=== PATIENT | female | born 1990 | race Caucasian/White ===

== ENCOUNTER → 2019-05-01 13:31 | Outpatient (CLI) | payer BC, SELFPAY ==
[2015-07-25 07:43] VITALS: BMI 87.0
[2019-05-03 11:32] LABS: HPV Reflexed? NOT INDICATED
== END ==
PROVIDERS: Referring Provider Obstetrics & Gynecology; Visit Provider Obstetrics & Gynecology
DX: Z12.4 Encounter for screening for malignant neoplasm of cervix (principal)
CPT/HCPCS: 87624; 88175; G0145

== ENCOUNTER → 2025-02-01 | Outpatient (CLI) | payer OTHER, SELFPAY ==
[2025-02-01 12:25] LABS: hCG Titer Quant., Serum 9010 mIU/mL (<9 non-preg)
== END | disposition home or self-care (01) ==
PROVIDERS: Referring Provider Obstetrics & Gynecology; Visit Provider Obstetrics & Gynecology
DX: O26.859 Spotting complicating pregnancy, unspecified trimester (principal); Z3A.00 Weeks of gestation of pregnancy not specified
CPT/HCPCS: 36415; 84702

== ENCOUNTER → 2025-02-03 | Outpatient (CLI) | payer OTHER, SELFPAY ==
[2025-02-03 12:21] LABS: hCG Titer Quant., Serum 14531 mIU/mL (<9 non-preg)
== END | disposition home or self-care (01) ==
LOC: LAB 11:04
PROVIDERS: Referring Provider Obstetrics & Gynecology; Visit Provider Obstetrics & Gynecology
DX: O26.859 Spotting complicating pregnancy, unspecified trimester (principal); Z3A.00 Weeks of gestation of pregnancy not specified
CPT/HCPCS: 36415; 84702

== ENCOUNTER → 2025-02-16 | Outpatient (CLI) | payer OTHER, SELFPAY ==
[2025-02-16 16:49] LABS: Amphetamine Urine NEGATIVE (<1000 ng/mL); Barbiturate Urine NEGATIVE (< 200 ng/mL); Benzodiazepine Urine NEGATIVE (< 200 ng/mL); Buprenorphine Urine NEGATIVE (< 200 ng/mL); Cocaine Urine NEGATIVE (< 300 ng/mL); Fentanyl, Urine NEGATIVE; Methadone Urine NEGATIVE (< 300 ng/mL); Opiates Urine NEGATIVE (< 300 ng/mL); Oxycodone, Urine NEGATIVE (< 100 ng/mL); PCP Urine NEGATIVE (< 25 ng/mL); THC Urine NEGATIVE (< 50 ng/mL)
[2025-02-19 22:06] LABS: Chlamydia By Nucleic Acid AMP Negative (Negative); Gonococcus By Nucleic Acid AMP Negative (Negative)
[2025-02-20 21:07] LABS: HPV APTIMA, High Risk Negative (Negative)
== END | disposition home or self-care (01) ==
LOC: LABSPEC 14:54
PROVIDERS: Referring Provider Obstetrics & Gynecology; Visit Provider Obstetrics & Gynecology
DX: O99.320 Drug use complicating pregnancy, unspecified trimester (principal); F12.21 Cannabis dependence, in remission; T75.89XA Other specified effects of external causes, initial encounter; Z12.4 Encounter for screening for malignant neoplasm of cervix; Z3A.00 Weeks of gestation of pregnancy not specified
CPT/HCPCS: 80307; 87077; 87086; 87088; 87186; 87491; 87591; 87624; 88175; G0145

== ENCOUNTER → 2025-03-05 | Outpatient (CLI) | payer OTHER, SELFPAY | END | disposition home or self-care (01) | LOC: LAB 11:49 | PROVIDERS: Referring Provider Nurse Practitioner Women's Health; Visit Provider Nurse Practitioner Women's Health | DX: O23.40 Unspecified infection of urinary tract in pregnancy, unspecified trimester (principal); Z3A.00 Weeks of gestation of pregnancy not specified | CPT/HCPCS: 87077; 87086; 87088; 87186 ==

== ENCOUNTER → 2025-03-13 | Outpatient (CLI) | payer OTHER, SELFPAY ==
[2025-03-13 10:41] LABS: Absolute Lymphocyte Count 2.18 X10^3/uL (0.83-4.51); Absolute Neutrophil Count 8.8 X10^3/uL (2.0-7.7); Basophil# 0.05 X10^3/uL; Basophil% 0.4 % (0-1); Eosinophil# 0.24 X10^3/uL; Hematocrit 36.1 % (37-47); Hemoglobin 12.4 g/dL (12.0-15.0); Lymphocyte # 2.18 X10^3/ul (0.83-4.51); Lymphocyte % 17.7 % (19-41); Mean Corp Hgb Conc 34.3 g/dL (32-36); Mean Corpuscular Hgb 31.1 pg (27.0-32.0); Mean Corpuscular Volume 90.5 fL (81-99); Mean Platelet Vol. 8.9 fl (6.2-12.0); Monocyte# 0.92 X10^3/uL; Monocyte% 7.5 % (0-10); NRBC Flagged by Analyzer 0 % (0-5); Neutrophil # 8.84 X10^3/uL (2.7-7.7); Neutrophil % 71.9 % (47-70); Platelet Count 318 K/mm3 (150-450); RBC Distribution Width CV 12.3 % (11.6-14.6); RBC Distribution Width SD 40.8 fl (35.1-43.9); Red Blood Count 3.99 M/mm3 (4.2-5.4); White Blood Count 12.3 K/mm3 (4.4-11.0)
[2025-03-13 11:22] LABS: Hemoglobin A1c 4.8 % (<=5.6)
[2025-03-13 11:32] LABS: HIV Nonreactive (Nonreactive); Hepatitis B Surface Antigen Nonreactive (Nonreactive); Hepatitis C Antibody Nonreactive (Nonreactive); Syphilis Antibodies Nonreactive (Nonreactive)
[2025-03-13 11:48] LABS: Rubella IgG Nonreactive (Nonreactive)
[2025-03-14 06:09] LABS: Toxoplasma Gondii IgG < 3.0 IU/mL (0.0-7.1); Toxoplasma Gondii IgM < 3.0 AU/mL (0.0-7.9)
== END | disposition home or self-care (01) ==
LOC: BWCLAB 09:08
PROVIDERS: Visit Provider Obstetrics & Gynecology
DX: O9A.219 Injury, poisoning and certain other consequences of external causes complicating pregnancy, unspecified trimester (principal); T75.89XA Other specified effects of external causes, initial encounter; W55.09XA Other contact with cat, initial encounter; Z3A.00 Weeks of gestation of pregnancy not specified
CPT/HCPCS: 36415; 83036; 85025; 86703; 86762; 86777; 86778; 86780; 86803; 86850; 86900; 86901; 87340

== ENCOUNTER → 2025-07-05 | Outpatient (CLI) | payer OTHER, SELFPAY ==
[2025-07-05 11:09] LABS: Hematocrit 35.6 % (37-47); Hemoglobin 12.0 g/dL (12.0-15.0); Immature Granulocytes Count 0.070 X10^3/uL (0.0-0.0); Mean Corp Hgb Conc 33.7 g/dL (32-36); Mean Corpuscular Volume 92.7 fL (81-99); Mean Platelet Vol. 8.7 fl (6.2-12.0); NRBC Flagged by Analyzer 0 % (0-5); Platelet Count 315 K/mm3 (150-450); RBC Distribution Width CV 12.6 % (11.6-14.6); RBC Distribution Width SD 42.5 fl (35.1-43.9); Red Blood Count 3.84 M/mm3 (4.2-5.4); White Blood Count 13.7 K/mm3 (4.4-11.0)
[2025-07-05 12:43] LABS: Glucose Challenge Gest 1H 50g 108 mg/dL (70-140); HIV Nonreactive (Nonreactive); Syphilis Antibodies Nonreactive (Nonreactive)
[2025-07-05 13:01] LABS: Barbiturate Urine NEGATIVE (< 200 ng/mL); Benzodiazepine Urine NEGATIVE (< 200 ng/mL); PCP Urine NEGATIVE (< 25 ng/mL); THC Urine NEGATIVE (< 50 ng/mL)
== END | disposition home or self-care (01) ==
PROVIDERS: Obstetrics & Gynecology; Referring Provider Nurse Practitioner Women's Health; Visit Provider Nurse Practitioner Women's Health
DX: O09.90 Supervision of high risk pregnancy, unspecified, unspecified trimester (principal); Z3A.00 Weeks of gestation of pregnancy not specified
CPT/HCPCS: 36415; 80307; 82950; 85025; 86703; 86780

== ENCOUNTER → 2025-07-19 | Outpatient (CLI) | payer OTHER, SELFPAY ==
[2025-07-19 13:07] LABS: Barbiturate Urine NEGATIVE (< 200 ng/mL); Benzodiazepine Urine NEGATIVE (< 200 ng/mL); PCP Urine NEGATIVE (< 25 ng/mL); THC Urine NEGATIVE (< 50 ng/mL)
== END | disposition home or self-care (01) ==
LOC: LABSPEC 10:23
PROVIDERS: Visit Provider Advanced Practice Midwife
DX: F12.21 Cannabis dependence, in remission (principal)
CPT/HCPCS: 80307

== ENCOUNTER → 2025-07-31 | Outpatient (CLI) | payer OTHER, SELFPAY ==
--- NOTE | 2025-07-31 11:59 | US_ITS ---
PROCEDURE: OB LIMITED WITH BIOMETRICS 07/31/2025 REASON FOR EXAM: SIZE GREATER THAN DATES. TECHNIQUE: Procedure Code: USOBGROWTH Modality: US Procedure: OB LIMITED WITH BIOMETRICS COMPARISON: None FINDINGS Number: 1 Position: Transverse left lie Placental Position: Anterior and not low-lying Placental Abnormalities: No evidence of previa. DIMENSIONS: Biparietal Diameter: 8.6 cm: 34 weeks and 6 days: 99 percentile/ Head Circumference: 31.5 cm: 35 weeks and 2 days: 96 percentile/ Abdominal Circumference: 29.4 cm: 33 weeks and 3 days: 91 percentile/ Femur Length: 6.2 cm: 32 weeks and 2 days: 57 percentile/ ESTIMATED WEIGHT: 2188 g plus/-328 g ESTIMATED WEIGHT PERCENTILE (24+ weeks): 90 ESTIMATED GESTATIONAL AGE: Baseline: 31 weeks and 4 days By Ultrasound: 34 weeks and 2 days ESTIMATED DATE OF DELIVERY: Baseline: September 28, 2024 By Ultrasound: September 14, 2025 BIOPHYSICAL ASSESSMENT: Amniotic Fluid Volume: 6.4 cm Amniotic Fluid Index: 16.2 cm (8-24 cm normal range) Cardiac Motion: 138 beats per minute (average) Trunk and Limb Motion: Present. MATERNAL ANATOMY: Adnexa: Neither maternal ovary is successfully identified. Cervical Length (if measured): 3.1 cm US/OB Limited With Biometrics IMPRESSION: Single live intrauterine gestation with a mean gestational age of 34 weeks and 2 days. Reading Location: [id number]
== END | disposition home or self-care (01) ==
PROVIDERS: Referring Provider Advanced Practice Midwife; Visit Provider Advanced Practice Midwife
DX: O26.849 Uterine size-date discrepancy, unspecified trimester (principal); Z3A.00 Weeks of gestation of pregnancy not specified
CPT/HCPCS: 76816

== ENCOUNTER → 2025-09-04 | Outpatient (CLI) | payer OTHER, SELFPAY ==
--- NOTE | 2025-09-04 09:04 | US_ITS ---
PROCEDURE: OB LIMITED WITH BIOMETRICS 09/04/2025 REASON FOR EXAM: GROWTH TECHNIQUE: Procedure Code: USOBGROWTH Modality: US Procedure: OB LIMITED WITH BIOMETRICS COMPARISON: 07/31/2025 FINDINGS Cephalic position with cardiac activity of 125 bpm. Maximum vertical pocket of 8.1 cm and GISEL of 20.1 cm. Placenta is anterior position with grade 1. BPD of 9.2, OFD of the 11.6, HC of 33.2, AC of 34.7, and FL of 7.5 cm corresponding with average gestational age of 37 weeks and 6 days with SANDY of 09/19/2025. Biometric measurement are within normal limits. Estimated weight of 3474 g (92 percentile). US/OB Limited With Biometrics IMPRESSION: Average sonographic gestational age is 37 weeks and 6 days with SANDY of 09/19/20 25. Biometry results are within normal limits. Reading Location: [id number]
== END | disposition home or self-care (01) ==
LOC: US 09:03
PROVIDERS: Referring Provider Nurse Practitioner Women's Health; Visit Provider Nurse Practitioner Women's Health
DX: O26.849 Uterine size-date discrepancy, unspecified trimester (principal)
CPT/HCPCS: 76816

== ENCOUNTER → 2025-09-05 | Outpatient (CLI) | payer OTHER, SELFPAY ==
--- OUTSIDE RECORDS SUMMARY | 2025-09-05 19:34 | XMS RPT_ITS | CCD ---
Author Organization [facility] Care Team Providers Care Human Resources Designate Name Role Phone Care Physician, No Primary Primary Care Provider Unavailable Care Physician, No Primary Referring Provider Un available Raegan REYES, Dr. Collier Attending Provider [phone] Dr. Mary Baker DO Attending Provider Dr. Mary Baker DO Referring Provider Angy Ceballos Attending Provider [phone] Angy Ceballos Referring Provider [phone] Violeta Nair CNM Attending Provider [phone] Aleah Molina DO Primary Care Provider ALEAH MOLINA Primary Care Unavailable AMIRA ALVARADO Referring UnavailSYLWIA Burleson Attending Unavailable ALEAH MOLINA Primary Care Unavailable AMIRA ALVARADO Referring UnavailSYLWIA Burleson Attending Unavailable SYLWIA RODRIGUEZ Attending Unavailable SYLWIA RODRIGUEZ Referring Unavailable ALEAH MOLINA Primary Care Unavailable Care Physician, No Primary Primary Care Physicia n Unavailable Care Physician, No Primary Referring Provider Un available Dr. Mary Baker DO Attending Physician Dr. Mary Baker DO Referring Provider Angy Ceballos Attending Physician [phone] Violeta Nair CNM Attending Physician [phone] Raegan REYES, Dr. Collier Attending Physician Care Physician, No Primary Primary Care Physicia n Unavailable Care Physician, No Primary Referring Provider Un available Criss DENTAL [employer]ORATORY TECHNOLOGY TEACHER-CAngy Attending Physician [phone] Criss DENT[employer] LABORATORY TECHNOLOGY TEACHER-CAngy Referring Provider [phone] Dr. Mary Baker DO Attending Physician Care Physician, No Primary Primary Care Unava ilable Mary Baker Referring Unavailabl e Mary Baker Attending Unavailabl e Care Physician, No Primary Primary Care Unava ilable Violeta Nair Attending Unavailable Care Physician, No Primary Referring Unava ilable Care Physician, No Primary Referring Unava ilable Care Physician, No Primary Primary Care Unava ilable Amira Alvarado Attending Unavailable Care Physician, No Primary Primary Care Unava ilable Care Physician, No Primary Referring Unava ilable Violeta Nair Attending Unavailable Care Physician, No Primary Primary Care Unava ilable Care Physician, No Primary Referring Unava ilable Amira Alvarado Attending Unavailable Care Physician, No Primary Primary Care Unava ilable Care Physician, No Primary Referring Unava ilable Criss D[employer]ORATORY TECHNOLOGY TEACHER, Angy Attending Unavailable Care Physician, No Primary Primary Care Unava ilable Care Physician, No Primary Referring Unava ilable Mary Baker Attending Unavailabl e Care Physician, No Primary Primary Care Unava ilable Care Physician, No Primary Referring Unava ilable [place] DENTAL LABORATORY TECHNOLOGY TEACHER, Angy Attending Unavailable Care Physician, No Primary Primary Care Unava ilable Care Physician, No Primary Referring Unava ilable Mary Baker Attending Unavailabl e Care Physician, No Primary Primary Care Unava ilable Care Physician, No Primary Referring Unava ilable Amira Alvarado Attending Unavailable Mary Baker Attending Unavailabl e Care Physician, No Primary Primary Care Unava ilable Mary Baker Referring Unavailabl e Care Physician, No Primary Primary Care Unava ilable Criss DENT[employer] LABORATORY TECHNOLOGY TEACHER, Angy Referring Unavailable [place] D[employer]ORATORY TECHNOLOGY TEACHER, Angy Attending Unavailable Care Physician, No Primary Primary Care Unava ilable Mary Baker Referring Unavailabl e Mary Baker Attending Unavailabl e Care Physician, No Primary Primary Care Unava ilable Mary Baker Attending Unavailabl e Care Physician, No Primary Primary Care Unava ilable Angy Kahn NP Referring Unavailable Angy Kahn NP Attending Unavailable Care Physician, No Primary Primary Care Unava ilable Violeta Nair Referring Unavailable Violeta Nair Attending Unavailable Care Physician, No Primary Primary Care Unava ilable Violeta Nair Attending Unavailable Allergies Allergy Classification Reported Allergen(s) Allergy Type Date of Onset Reaction(s) Facility (10 sources) natural latex rubber Allergy to substance 5 [facility] Comment on above: dry skin (2 sources) Latex; Translations: [LATEX] Propensity to adverse reactions 5 Rash [facility] (2 sources) Other; Translations: [OTHER] Propensity to adverse reactions 5 Swelling, Other (See Comments) [facility] (1 source) natural latex rubber Drug allergy (disorder) 5 [facility] Repository Medications Current Medications Medication Drug Class(es) Dates Sig (Normalized) Sig (Original) AZO CRANBERRY GUMMIES PO (1 source) AZO CRANBERRY GUMMIES PO Take by mouth Active cholecalciferol 0.25 mg oral capsule (11 sources) Vitamin D Start: 01-30-2025 take 1 capsule by mouth once daily Cholecalciferol (Vitamin D3) 250 mcg (10,000 unit) capsule Active 250 ug PO daily January 30, 2025 12:00am Complies with drug therapy fosfomycin 3000 mg powder for oral solution (8 sources) Start: 02-19-2025 take 3 g by mouth once Fosfomycin Tromethamine 3 gram packet Active 3 g PO ONCE 1 0 February 19, 2025 12:00am Complies with drug therapy ibuprofen 200 mg oral tablet (1 source) Nonsteroidal Anti-inflammatory Drug Start: 12-07-2012 ibuprofen (MOTRIN) 200 MG tablet Take by mouth every 6 hours as needed. 0 12/07/2012 Active Inositol-D Chiro Inositol 2,000-50 mg powder in packet (11 sources) Start: 01-30-2025 Inositol-D Chiro Inositol 2,000-50 mg powder in packet Active NMA PO January 30, 2025 12:00am Complies with drug therapy Start: 01-30-2025 Inositol-D Chi ro Inositol 2,000-50 mg powder in packet Active NMA PO January 30, 2025 12:00am Inositol-D Chiro-Inositol (OVASITOL PO) (1 source) Inositol-D Chiro -Inositol (OVASITOL PO) Take by mouth Active Mv-Mins 62-Qehv-Khhmp No.1-D barry (Pnv-[place]) 28-1-300 mg capsule (11 sources) Start: 01-30-2025 Mv-Mins 71-Iro n-Folic No.1-Dha (Pnv-[place]) 28-1-300 mg capsule Active 1 NMA PO DAILY January 30, 2025 12:00am Complies with drug therapy Start: 01-30-2025 Mv-Mins 71-Iro n-Folic No.1-Dha (Pnv-[place]) 28-1-300 mg capsule Active 1 NMA PO DAILY January 30, 2025 12:00am [place]-3 Fatty Acids (FISH OIL PO) (1 source) [place]-3 Fatty Ac ids (FISH OIL PO) Take by mouth Active Vit-Fe Fumarate-FA ( PO) (1 source) Vit-Fe Fumarate-FA ( PO) Take by mouth Active Vit-Fe Fumarate-FA ( VITAMIN PO) (1 source) take 1 tablet by niko th once daily Vit-Fe Fumarate-FA ( VITAMIN PO) Take 1 Tablet by mouth daily Active UNABLE TO FIND (1 source) UNABLE TO FIND A ctive VITAMIN D PO (2 sources) VITAMIN D PO Andi e by mouth Active Completed/Discontinued Medications Medication Drug Class(es) Dates Sig (Normalized) Sig (Original) naproxen 500 mg oral tablet (11 sources) Nonsteroidal Anti-inflammatory Drug Start: 10-31-2013 End: 01-30-2025 take 1 tablet by mouth twice daily as needed for pain Naproxen 500 MG tablet Discontinued 500 mg PO TWICE DAILY NEEDED as needed for Pain 20 0 October 31, 2013 1:00am January 30, 2025 8:12am Problems Active Problems Problem Classification Problem Date Documented Date Episodic/Chronic Abdominal pain (11 sources) Abdominal pain; Translations: [Unspecified abdominal pain] 01-29-2015 Episodic Administrative/soc ial admission (20 sources) Occupational exposure to unspecified risk factor; Translations: [Occupational exposure in workplace] Onset: 04-09-2001-30-2025 Episodic Comment on above: Coolant/spray- C[employer] M achinist denies triggers, pre coy female healthcare providers Anxiety disorders (20 sources) Anxiety; Translations: [Anxiety disorder, unspecified] Onset: 07-30-2001-30-2025 Chronic Comment on above: stable Disorders usually diagnosed in infancy, childhood, or adolescence (20 sources) Autism spectrum disorder; Translations: [Autistic disorder] Onset: 04-09-2001-30-2025 Chronic Comment on above: Suspected, tested hi gh Immunizations and screening for infectious disease (1 source) Encounter for immunization; Translations: [Encounter for immunization] Onset: 07-19-20 Episodic Menstrual disorders (13 sources) Secondary amenorrhea; Translations: [Secondary amenorrhea] Onset: 02-17-2001-30-2025 Chronic Comment on above: + UPT Mood disorders (20 sources) Depressive disorder; Translations: [Depression] 01-30-2025 Chronic Comment on above: mild, cyclical, not medicated Mood disorders (1 source) Mood disorders; Translations: [Depression, unspecified] Onset: 07-30-20 Nutritional deficiencies (20 sources) Vitamin D deficiency; Translations: [Vitamin D deficiency, unspecified] Onset: 07-30-2001-30-2025 Chronic Comment on above: Vit D 10,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 , 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 Other complications of (20 sources) Maternal obesity complicating , childbirth and the puerperium, antepartum; Translations: [Obesity complicating , unspecified trimester] 01-30-2025 Chronic Comment on above: HGBA1c Other complications of (1 source) Obesity complicating , first trimester; Translations: [Obesity complicating , first trimester] Onset: 07-30-20 Chronic Other complications of (1 source) Obesity complicating , unspecified trimester; Translations: [Obesity complicating , unspecified trimester] Onset: 02-17-20 Chronic Other complications of (20 sources) Spotting per vagina in ; Translations: [Spotting complicating , unspecified trimester] 02-01-2025 Episodic Other complications of (20 sources) High risk ; Translations: [Supervision of high risk , unspecified, unspecified trimester] 01-30-2025 Episodic Comment on above: , SANDY 09/20/25, BF Dionisio PRR , SANDY 09/20/25 , BF Dionisio Other complications of (20 sources) Urinary tract infection in ; Translations: [Unspecified infection of urinary tract in , unspecified trimester] 02-19-2025 Episodic Comment on above: Myroides bacteria-fo sfomycin. Needs rpt culture 2 wk after medication Myroides bacteria-fo sfomycin. Rpt culture still w myroides. ID doing expanded susceptibility panel for tx safe in . Consult MFM. Myroides bacteria-fo sfomycin. Rpt culture still w myroides. ID doing expanded susceptibility panel for tx safe in . Consult MFM-has not scheduled consult. Myroides bacteria-fo sfomycin. Rpt culture still w myroides. ID doing expanded susceptibility panel for tx safe in . Consult MFM-treated and culture 05/09/25 w/them negative. Other complications of (2 sources) Uterine size-date discrepancy, unspecified trimester; Translations: [Uterine size-date discrepancy, unspecified trimester] Onset: 07-30-20 Episodic Other complications of (1 source) Unspecified infection of urinary tract in , first trimester; Translations: [Unspecified infection of urinary tract in , first trimester] Onset: 07-30-20 Episodic Other complications of (1 source) Supervision of high risk , unspecified, unspecified trimester; Translations: [Supervision of high risk , unspecified, unspecified trimester] Onset: 07-30-20 Episodic Other endocrine disorders (20 sources) Polycystic ovary syndrome; Translations: [Polycystic ovarian syndrome] 01-30-2025 Chronic Comment on above: not on medication, H GBA1c Other endocrine disorders (1 source) Polycystic ovarian syndrome; Translations: [Polycystic ovarian syndrome] Onset: 07-30-20 Chronic Other injuries and conditions due to external causes (20 sources) Other specified effects of external causes, initial encounter; Translations: [Exposure to cat feces] Onset: 06-06-20 25 01-30-2025 Episodic Other nutritional; endocrine; and metabolic disorders (20 sources) Insulin resistance; Translations: [Insulin resistance] 01-30-2025 Chronic Comment on above: related to PCOS Other nutritional; endocrine; and metabolic disorders (1 source) Obesity; Translations: [Obesity, unspecified] Onset: 09-11-20 09 11-12-2022 Chronic Other and delivery including normal (20 sources) ; Translations: [Encounter for supervision of normal , unspecified, unspecified trimester] 01-30-2025 Episodic Comment on above: discussed NIPT & Car rier testing- undecided Residual codes; unclassified (20 sources) Stopped drinking alcohol; Translations: [Personal history of other specified conditions] 01-30-2025 Episodic Comment on above: 2-3 wine coolers or wine daily, stopped with + HPT Residual codes; unclassified (20 sources) Family history of hereditary disease; Translations: [Family history of other endocrine, nutritional and metabolic diseases] 01-30-2025 Episodic Comment on above: Mother & 1/2 sister Residual codes; unclassified (20 sources) Family history of disorder; Translations: [Family history of other specified conditions] 01-30-2025 Episodic Comment on above: Mother 2 miscarriage s Residual codes; unclassified (20 sources) Family history of Spina bifida; Translations: [Family history of other congenital malformations, deformations and chromosomal abnormalities] 01-30-2025 Episodic Comment on above: 1/2 sister Residual codes; unclassified (20 sources) Family history of cleft palate with cleft lip; Translations: [Family history of other congenital malformations, deformations and chromosomal abnormalities] 01-30-2025 Episodic Comment on above: 1/2 brother Residual codes; unclassified (20 sources) Family history of Raynaud phenomenon; Translations: [Family history of ischemic heart disease and other diseases of the circulatory system] 01-30-2025 Episodic Comment on above: 1/2 Sister Residual codes; unclassified (20 sources) Family history of congenital hip dysplasia; Translations: [Family history of other congenital malformations, deformations and chromosomal abnormalities] 01-30-2025 Episodic Comment on above: Mother Residual codes; unclassified (20 sources) Genetic mutation; Translations: [Genetic susceptibility to other disease] 01-30-2025 Episodic Comment on above: Family History- Moth er, 1/2 sister Residual codes; unclassified (6 sources) Family history of 5,10 methylenetetrahydrofolate reductase deficiency; Translations: [Family history of other endocrine, nutritional and metabolic diseases] 05-10-2025 Episodic Comment on above: Mother & 1/2 sister Residual codes; unclassified (1 source) Family history of ischemic heart disease and other diseases of the circulatory system; Translations: [Family history of ischemic heart disease and other diseases of the circulatory system] Onset: 07-30-20 Episodic Residual codes; unclassified (1 source) Family history of other congenital malformations, deformations and chromosomal abnormalities; Translations: [Family history of other congenital malformations, deformations and chromosomal abnormalities] Onset: 07-30-20 Episodic Residual codes; unclassified (1 source) Genetic susceptibility to other disease; Translations: [Genetic susceptibility to other disease] Onset: 07-30-20 Episodic Residual codes; unclassified (1 source) 31 weeks gestation of ; Translations: [31 weeks gestation of ] Onset: 07-30-20 Episodic Residual codes; unclassified (1 source) 29 weeks gestation of ; Translations: [29 weeks gestation of ] Onset: 07-19-20 Episodic Residual codes; unclassified (1 source) 23 weeks gestation of ; Translations: [23 weeks gestation of ] Onset: 06-06-20 Episodic Residual codes; unclassified (1 source) 19 weeks gestation of ; Translations: [19 weeks gestation of ] Onset: 06-06-20 Episodic Substance-related disorders (20 sources) Cannabis abuse; Translations: [Cannabis dependence, in remission] Onset: 07-30-2001-30-2025 Chronic Comment on above: Quit in October Quit in October, ro om smells of marijuana upon exams. Will need random tox screens. smell could be coming from FOB. Unclassified (1 source) Insulin resistance, unspecified; Translations: [Insulin resistance, unspecified] Onset: 06-06-20 Urinary tract infections (1 source) Urinary tract infectious disease; Translations: [Urinary tract infection, site not specified] 05-09-2025 Episodic Past or Other Problems Problem Classification Problem Date Documented Da te Episodic/Chronic Gastrointestinal hemorrhage (1 source) Hemorrhage of rectum and anus; Translations: [Hemorrhage of anus and rectum] Onset: 11-21-2008 12-11-2012 Episodic Nonmalignant breast conditions (1 source) Breast lump; Translations: [Unspecified lump in unspecified breast] Onset: 12-30-2009 12-11-2012 Episodic Other complications of (1 source) Spotting complicating , unspecified trimester; Translations: [Spotting complicating , unspecified trimester] Onset: 04-09-2025 Episodic Other complications of (1 source) Unspecified infection of urinary tract in , unspecified trimester; Translations: [Unspecified infection of urinary tract in , unspecified trimester] Onset: 03-08-2025 Episodic Other female genital disorders (1 source) Disorder of female genital organs; Translations: [Unspecified condition associated with female genital organs and menstrual cycle] Onset: 10-31-2008 11-12-2022 Episodic Other screening for suspected conditions (not mental disorders or infectious disease) (1 source) Encounter for screening for malignant neoplasm of cervix; Translations: [Encounter for screening for malignant neoplasm of cervix] Onset: 02-16-2025 Episodic Residual codes; unclassified (1 source) 15 weeks gestation of ; Translations: [15 weeks gestation of ] Onset: 04-09-2025 Episodic Residual codes; unclassified (1 source) Personal history of other specified conditions; Translations: [Personal history of other specified conditions] Onset: 04-09-2025 Episodic Residual codes; unclassified (1 source) Family history of other specified conditions; Translations: [Family history of other specified conditions] Onset: 04-09-2025 Episodic Residual codes; unclassified (1 source) Family history of other endocrine, nutritional and metabolic diseases; Translations: [Family history of other endocrine, nutritional and metabolic diseases] Onset: 04-09-2025 Episodic Varicose veins of lower extremity (20 sources) Bilateral spider veins of lower limbs; Translations: [Asymptomatic varicose veins of bilateral lower extremities] Onset: 04-09-2025 01-30-2025 Episodic Comment on above: below knee Viral infection (20 sources) Hand wart; Translations: [Viral wart, unspecified] Onset: 04-09-2025 01-30-2025 Episodic Comment on above: thumb currently Results Test Name Value Interpretation Reference Range Facility OB Limited With Biometricson 07-31-2025 OB Limited With Biometrics [facility] Imaging Services [address], [place] [id number] OB Limited With Biometrics MR#: [id number] Acct: [id number] Name: TRACIKEIRAFlaquita GALLEGOS Rep #: [id number] : 1990 F 35 From: Jeremiah umaña MD PCP: Care Physician,No Primary Status: REG CLI Study: OB Limited With Biometrics Date of Exam: 07/31 Exam# [id number] Ordering Dr: Violeta Nair CNM PROCEDURE: OB LIMITED WITH BIOMETRICS 07/31/2025 REASON FOR EXAM: SIZE GREATER THAN DATES. TECHNIQUE: Procedure Code: USOBGROWTH Modality: US Procedure: OB LIMITED WITH BIOMETRICS COMPARISON: None FINDINGS Number: 1 Position: Transverse left lie Placental Position: Anterior and not low-lying Placental Abnormalities: No evidence of previa. DIMENSIONS: Biparietal Diameter: 8.6 cm: 34 weeks and 6 days: 99 percentile/ Head Circumference: 31.5 cm: 35 weeks and 2 days: 96 percentile/ Abdominal Circumference: 29.4 cm: 33 weeks and 3 days: 91 percentile/ Femur Length: 6.2 cm: 32 weeks and 2 days: 57 percentile/ ESTIMATED WEIGHT: 2188 g plus/-328 g ESTIMATED WEIGHT PERCENTILE (24+ weeks): 90 ESTIMATED GESTATIONAL AGE: Baseline: 31 weeks and 4 days By Ultrasound: 34 weeks and 2 days ESTIMATED DATE OF DELIVERY: Baseline: September 28, 2024 By Ultrasound: September 14, 2025 BIOPHYSICAL ASSESSMENT: Amniotic Fluid Volume: 6.4 cm Amniotic Fluid Index: 16.2 cm (8-24 cm normal range) Cardiac Motion: 138 beats per minute (average) Trunk and Limb Motion: Present. MATERNAL ANATOMY: Adnexa: Neither maternal ovary is successfully identified. Cervical Length (if measured): 3.1 cm US/OB Limited With Biometrics IMPRESSION: Single live intrauterine gestation with a mean gestational age of 34 weeks and 2 days. Reading Location: [id number] CC: KENNY Nair; No Primary Care Physician Creative Lead: Signed Normal [facility] Cigarette Filter Inspector Office Visit Reporton 07-30-2025 Cigarette Filter Inspector Office Visit Report [facility] [address], [address] [place] [address] OFFICE VISIT Date of Service: 07/30/25 MR#: [id number] Acct: [id number] Name: AVILESKEIRA Rep #: [id number] : 1990 Provider: Dr. Amira ward MD Age/Sex: 35/F Location[place] [facility] [place] [facility] [place] Status: Signed Intake Vital Signs 06/06/25 08:47 07/19/25 09:21 07/30/25 08:56 Height 5 ft 1 in 5 ft 1 in 5 ft 1 in Weight: 208 lb 6 oz BMI 39.3 BP 131/72 H Intake Visit Reasons: 32wk ob Gandy Dancer Required: No Is patient in pain?: No Allergies Latex, Natural Rubber Allergy (Mild, Verified 07/30/25 08:58) Rash Medications ???Medication ???Instructions ???Recorded ???Confirmed ???Type cholecalciferol (vitamin D3) 250 250 mcg PO QDAY 01/30/25 07/30/25 History mcg (10,000 unit) capsule inositol 2,000 mg-D chiro inositol ea PO 01/30/25 07/30/25 History 50 mg oral powder packet multivit-min no.71-iron fum 28 1 cap PO DAILY 01/30/25 07/30/25 H istory mg-folate no.1 1 mg-dha 300 mg capsule (PNV-[place]) Last Menstrual Period: 12/14/24 Zika: Zika virus screening: Negative : No Have you fallen in the past year?: No PFSH PFSH Medical History Seasonal allergies Surgical History [place] teeth extracted Family History Sister MTHFR gene mutation Half sister Spina bifida Mother MTHFR gene mutation Arthritis Hypertension Addiction to drug Grandmother Arthritis Maternal Alcoholism maternal Kidney disease, Onset Age: 32 kidney removed Grandfather Arthritis Maternal Diabetes Maternal Father Alcoholism Social History adopted: No household members: family housing: house current occupational status: employed 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, coolant) pets and animals: Yes (Avoid litter box) pets and animals: cat(s) and dog(s) history of recent travel: No sexually active: Yes Smoking Status: Never smoker alcohol intake: current alcohol intake frequency: 3 or more drinks per day Alcohol type: wine details: Not since finding out substance use type: former substance user and marijuana well-balanced diet: daily or most days caffeine: Yes Type: coffee Number of servings: 2 eating out: 1-3 times/week during the past year weight has: remained stable what type of physical activity do you participate in: none estefani/protestant: None seatbelt use: always do you feel safe at home: Yes additional social history: MOHAMUD-Dionisio Perez 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 OB Visit SANDY Calculator Estimated Delivery Date Method Current WG Current Estimate 09/28/25 Ultrasound #1 31w 3d Other Estimates 09/20/25 LMP (Certain) 32w 4d Expected Delivery Route/Plan Labor Preferences- CB/BF classes: [] labor support person: [] labor intervention preferences: [] pain management options preferred: [] cut cord/dad catch: [] : [] PP control planned: [] discussed possible routes of delivery and associated risks: [] special requests: [] Specific Issue/Plans Covid status: [] Flu vaccine: given Tdap vaccine: given Rhogam: na LARC form signed: declined movement and labor precautions reviewed. Problem list reviewed and updated with the most current plan of care details and appropriate orders placed. Relevant counseling for the gestational age provided. Continue routine care and follow up unless otherwise noted in visit notes/problem list details Initial Weight: Not Recorded Date -???-???-???-???-???-?? ?-???-???-???-???-???-? ??- EGA Weight BP Urine Prot -???-???-???-???-???-?? ?-???-???-???-???-???-? ??- Glucose FHR FuHt Pres Dilation -???-???-???-???-???-?? ?-???-???-???-???-???-? ??- Effaced St Visit Note 02/16/25 -???-???-???-???-???-?? ?-???-???-???-???-???-? ??- 8w 0d 170 lb 8 oz 109/68 -???-???-???-???-???-?? ?-???-???-???-???-???-? ??- 166 -???-???-???-???-???-?? ?-???-???-???-???-???-? ??- 03/13/25 -???-???-???-???-???-?? ?-???-???-???-???-???-? ??- 11w 4d 168 lb 6 oz 106/71 Negative -???-???-???-???-???-?? ?-???-???-???-???-???-? ??- Negative 168 -???-???-???-???-???-?? ?-???-???-???-???-???-? ??- -No VB. Na usea improved. Br US confirm FHT. Discussed UTI, will call expa (more content not included)... Normal [facility] Cigarette Filter Inspector Office Visit Reporton 07-19-2025 Cigarette Filter Inspector Office Visit Report [facility] [address], [address] [place] [address] OFFICE VISIT Date of Service: 07/19/25 MR#: [id number] Acct: [id number] Name: SORAYA AVILESA EL Rep #: [id number] : 1990 Provider: KENNY Rojas ams Age/Sex: 35/F Location: [facility] Status: Signed with Addenda ADDENDUM by Silvia Stahl on 07/19/25 at 0949 Office Procedure Documentation entered by Silvia Stahl 07/19/25 09:49: Immunizations Flucelvax 0790-5708 (PF) 45 mcg (15 mcg x 3)/0.5 mL IM syringe Performing Provider: Violeta Nair CNM Performing Location: [facility] Administered by: Silvia Stahl on 07/19/25 09:48 Dose Route Admin Location Dispensed Lot Number Expiration Date Package NDC NDC Rn International 0.5 mL IM Left Deltoid 0.5 mL [id number] 01/27/26 64175-292-[address] [id number] [employer]. VIS Given Date VIS Provided VIS Publication Date 07/19/25 Single Vaccine 24 Eligibility Eligibility Date Funding Source Not Applicable Adacel(Tdap Adolesn/Adult)(PF) 2 Lf-(2.5-5-3-5)-5 Lf/0.5 mL IM syringe Performing Provider: Violeta Nair CNM Performing Location: [facility] Administered by: Silvia Stahl on 07/19/25 09:48 Dose Route Admin Location Dispensed Lot Number Expiration Date Package NDC NDC Rn International 0.5 mL IM Right Deltoid 0.5 mL [id number] 04/20/27 18373-447-07 [id number] S [employer] VIS Given Date VIS Provided VIS Publication Date 07/19/25 Single Vaccine 24 Eligibility Eligibility Date Funding Source Not Applicable Date cc: * Signed Intake Vital Signs 05/10/25 09:41 07/05/25 10:45 07/19/25 09:21 Height 5 ft 1 in 5 ft 1 in 5 ft 1 in Weight: 206 lb BMI 38.9 BP 120/75 Intake Visit Reasons: 30wk ob Chief Complaint: 30wk OB Gandy Dancer Required: No Is patient in pain?: No Allergies Latex, Natural Rubber Allergy (Mild, Verified 07/19/25 09:19) Rash Medications ???Medication ???Instructions ???Recorded ???Confirmed ???Type cholecalciferol (vitamin D3) 250 250 mcg PO QDAY 01/30/25 07/19/25 History mcg (10,000 unit) capsule inositol 2,000 mg-D chiro inositol ea PO 01/30/25 07/19/25 History 50 mg oral powder packet multivit-min no.71-iron fum 28 1 cap PO DAILY 01/30/25 07/19/25 H istory mg-folate no.1 1 mg-dha 300 mg capsule (PNV-[place]) fosfomycin tromethamine 3 gram 3 g PO ONCE #1 ea 02/19/25 5 Rx oral packet Last Menstrual Period: 12/14/24 : No Have you fallen in the past year?: No PFSH PFSH Medical History Seasonal allergies Surgical History [place] teeth extracted Family History Sister MTHFR gene mutation Half sister Spina bifida Mother MTHFR gene mutation Arthritis Hypertension Addiction to drug Grandmother Arthritis Maternal Alcoholism maternal Kidney disease, Onset Age: 32 kidney removed Grandfather Arthritis Maternal Diabetes Maternal Father Alcoholism Social History adopted: No household members: family housing: house current occupational status: employed 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, coolant) pets and animals: Yes (Avoid litter box) pets and animals: cat(s) and dog(s) history of recent travel: No sexually active: Yes Smoking Status: Never smoker alcohol intake: current alcohol intake frequency: 3 or more drinks per day Alcohol type: wine details: Not since finding out substance use type: former substance user and marijuana well-balanced diet: daily or most days caffeine: Yes Type: coffee Number of servings: 2 eating out: 1-3 times/week during the past year weight has: remained stable what type of physical activity do you participate in: none estefani/protestant: None seatbelt use: always do you feel safe at home: Yes additional social history: BF-Dionisio [employer]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 OB Visit SANDY Calculator Estimated Delivery Date Method Current WG Current Estimate 09/28/25 Ultrasound #1 29w 6d Other Estimates 09/20/25 LMP (Certain) 31w 0d Expected Delivery Route/Plan Labor Preferences- CB/BF classes: [] labor support person: [] labor intervention preferences: [] pain management options preferred: [] (more content not included)... Normal [facility] Urine Drug Screen (VISTA)on 07-19-2025 AMPHETAMINES Negative Normal <1000 ng/mL [facility] Comment on above: Order Comment: UNK Performed By: #### L 505.5000 #### [facility] [address] [place] [address] BARBITIURATES Negative Normal < 200 ng/mL [facility] Comment on above: Order Comment: UNK Performed By: #### L 505.5000 #### [facility] [address] [place] [address] BENZODIAZIPINE Negative Normal < 200 ng/mL [facility] Comment on above: Order Comment: UNK Performed By: #### L 505.5000 #### [facility] [address] [place] [id number] BUP Ur Drug Scr Negative Normal < 200 ng/mL [facility] Comment on above: Order Comment: UNK Performed By: #### L 505.5000 #### [facility] [address] [facility] [place] [id number] COCAINE Negative Normal < 300 ng/mL [facility] Comment on above: Order Comment: UNK Performed By: #### L 505.5000 #### [facility] [address] [place] [id number] Fentanyl Negative Normal <5 ng/mL [facility] Comment on above: Order Comment: UNK Result Comment: CONF IRMATORY TESTING FOR ALL POSITIVE URINE DRUG SCREEN RESULTS WILL ONLY BE SENT OUT UPON PHYSICIAN ORDER. Isma Pro Urine Drug Screen methods provide only preliminary analytical test results. A more specific alternate chemical method must be used in order to obtain a confirmed analytical result. Gas chromatography/mass spectrometery (GC/MS) is the preferred confirmatory method. Clinical consideration and professional judgement should be applied to any drug of abuse test result, particularly when preliminary positive results are used. Urine TCA testing must be ordered separately. Use test mnemonic: UTCA Performed By: #### L 505.5000 #### [facility] [address] [place] [address] METHADONE Negative Normal < 300 ng/mL [facility] Comment on above: Order Comment: UNK Performed By: #### L 505.5000 #### [facility] [address] [place] [address] OPIATES Negative Normal < 300 ng/mL [facility] Comment on above: Order Comment: UNK Performed By: #### L 505.5000 #### [facility] [address] [place] [address] OXYCODONE Negative Normal < 100 ng/mL [facility] Comment on above: Order Comment: UNK Performed By: #### L 505.5000 #### [facility] [address] [place] [address] PCP Negative Normal < 25 ng/mL [facility] Comment on above: Order Comment: UNK Performed By: #### L 505.5000 #### [facility] [address] [place] [address] THC Negative Normal < 50 ng/mL [facility] Comment on above: Order Comment: UNK Performed By: #### L 505.5000 #### [facility] [address] [place] [address] Absolute lymphocyte countOrd ered By: Angy Kahn on 07-05-2025 Lymphocytes Auto (Unsp spec) [#/Vol] 1.46 10*3/uL 0.83-4.51 [facility] Absolute neutrophil countOrd ered By: Angy Kahn on 07-05-2025 Neutrophils (Bld) [#/Vol] 11.2 10*3/uL High 2.0-7.7 [facility] Amphetamine detection with 1 000 ng/mL as cutoffOrdered By: Mary Shea on 07-05-2025 Amphetamines Screen method >1000 ng/mL Ql (U) Negative < 200 ng/mL [facility] Automated lymphocyte count a s percentage of total leukocytesOrdered By: Angy Kahn on 07-05-2025 Lymphocytes/100 WBC Auto (Unsp spec) 10.7 % Low 19-41 [facility] Basophil percentageOrdered B y: Angy Kahn on 07-05-2025 Basophils/100 WBC (Bld) 0.2 % 0-1 [facility] CBC W/Diff, Automatedon 06-20 Absolute Lymph 1.46 X10 3/uL Normal 0.83-4.51 [facility] Comment on above: Performed By: #### L 505.5000, M100.2200, L7000.1800, L7400.0280 #### [facility] [address] [place], [address] Absolute Neut 11.2 X10 3/uL High 2.0-7.7 [facility] Comment on above: Performed By: #### L 505.5000, M100.2200, L7000.1800, L7400.0280 #### [facility] [address] [place], [address] Basophils/100 WBC (Bld) 0.2 % Normal 0-1 [facility] Comment on above: Performed By: #### L 505.5000, M100.2200, L7000.1800, L7400.0280 #### [facility] [address] [place], [address] Eosinophils/100 WBC (Bld) 1.2 % Normal 0-5 [facility] Comment on above: Performed By: #### L 505.5000, M100.2200, L7000.1800, L7400.0280 #### [facility] [address] [place], [address] Erythrocyte distribution width (RBC) [Ratio] 12.6 % Normal 11.6-14.6 [facility] Comment on above: Performed By: #### L 505.5000, M100.2200, L7000.1800, L7400.0280 #### [facility] [address] [place], [address] Hematocrit (Bld) [Volume fraction] 35.6 % Low 37-47 [facility] Comment on above: Performed By: #### L 505.5000, M100.2200, L7000.1800, L7400.0280 #### [facility] [address] [place], [address] Hemoglobin (Bld) [Mass/Vol] 12.0 g/dL Normal 12.0-15.0 [facility] Comment on above: Performed By: #### L 505.5000, M100.2200, L7000.1800, L7400.0280 #### [facility] [address] [place], [address] IG% 0.500 Normal 0.0-0.9 [facility] Comment on above: Result Comment: IG% - Immature Granulocytes (promyelocytes, myelocytes and metamyelocytes) > 1% indicates that a LEFT SHIFT is Present. Performed By: #### L 505.5000, M100.2200, L7000.1800, L7400.0280 #### [facility] [address] [place], [address] Lymphocytes/100 WBC (Bld) 10.7 % Low 19-41 [facility] Comment on above: Performed By: #### L 505.5000, M100.2200, L7000.1800, L7400.0280 #### [facility] [address] [place], [address] MCH (RBC) [Entitic mass] 31.3 pg Normal 27.0-32.0 [facility] Comment on above: Performed By: #### L 505.5000, M100.2200, L7000.1800, L7400.0280 #### [facility] [address] [place], [address] MCHC (RBC) [Mass/Vol] 33.7 g/dL Normal 32-36 [facility] Comment on above: Performed By: #### L 505.5000, M100.2200, L7000.1800, L7400.0280 #### [facility] [address] [place], [address] MCV (RBC) [Entitic vol] 92.7 fL Normal 81-99 [facility] Comment on above: Performed By: #### L 505.5000, M100.2200, L7000.1800, L7400.0280 #### [facility] [address] [place], [address] Monocytes/100 WBC (Bld) 6.0 % Normal 0-10 [facility] Comment on above: Performed By: #### L 505.5000, M100.2200, L7000.1800, L7400.0280 #### [facility] [address] [place], [address] Neutrophils/100 WBC (Bld) 81.4 % High 47-70 [facility] Comment on above: Performed By: #### L 505.5000, M100.2200, L7000.1800, L7400.0280 #### [facility] [address] [place], [address] Nucleated RBC (Bld) [#/Vol] 0 10*3/uL Normal 0-5 [facility] Comment on above: Performed By: #### L 505.5000, M100.2200, L7000.1800, L7400.0280 #### [facility] [address] [place], [address] Platelet mean volume (Bld) [Entitic vol] 8.7 fL Normal 6.2-12.0 [facility] Comment on above: Performed By: #### L 505.5000, M100.2200, L7000.1800, L7400.0280 #### [facility] [address] [place], [address] Platelets (Bld) [#/Vol] 315 10*3/uL Normal 150-450 [facility] Comment on above: Performed By: #### L 505.5000, M100.2200, L7000.1800, L7400.0280 #### [facility] [address] [place], [address] RBC (Bld) [#/Vol] 3.84 10*6/uL Low 4.2-5.4 [facility] Comment on above: Performed By: #### L 505.5000, M100.2200, L7000.1800, L7400.0280 #### [facility] [address] [place], [address] RDW SD 42.5 fl Normal 35.1-43.9 [facility] Comment on above: Performed By: #### L 505.5000, M100.2200, L7000.1800, L7400.0280 #### [facility] [address] [place], [address] WBC (Bld) [#/Vol] 13.7 10*3/uL High 4.4-11.0 [facility] Comment on above: Performed By: #### L 505.5000, M100.2200, L7000.1800, L7400.0280 #### [facility] [address] [place], [address] Eosinophil percentageOrdered By: Angynguyễn Kahn on 07-05-2025 Eosinophils/100 WBC (Bld) 1.2 % 0-5 [facility] Erythrocyte distribution wid th ratioOrdered By: Angy Criss on 07-05-2025 Erythrocyte distribution width (RBC) [Ratio] 12.6 % 11.6-14.6 [facility] Erythrocyte distribution wid th standard deviationOrdered By: Angy Criss on 07-05-2025 Erythrocyte distribution width (RBC) [Ratio] 42.5 fl 35.1-43.9 [facility] Glucose Challenge Gest 1H 50 letitia 07-05-2025 GLU GEST 50g 1H 108 mg/dL Normal 70-140 [facility] Comment on above: Performed By: #### L 505.5000, M100.2200, L7000.1800, L7400.0280 #### [facility] [address] [place], [address] Glucose measurement at 2 yamilet rs post-dose gestational glucose tolerance testOrdered By: Angy Kahn on 07-05-2025 Glucose [Mass/Vol] 108 mg/dL 70-140 [facility] HIVon 07-05-2025 HIV Non-Reactive Normal Nonreactive [facility] Comment on above: Result Comment: Non- Reactive Reactive Repeatedly reactive samples must be confirmed according to CDC recommended confirmatory algorithms. The subresults for either HIVAG or AHIV can be used as an aid in the selection of the confirmation algorithm for reactive samples. Send out specimens with Reactive results to [facility] for confirmation. Order the HIV antibody detection and differentiation: lc#[id number] Performed By: #### L 505.5000, M100.2200, L7000.1800, L7400.0280 #### [facility] [address] [place], [address] Hematocrit Auto (Bld) [Volum e fraction]Ordered By: Angy Kahn on 07-05-2025 Hematocrit (Bld) [Volume fraction] 35.6 % Low 37-47 [facility] Hemoglobin measurementOrdere d By: Angy Kahn on 07-05-2025 Hemoglobin (Bld) [Mass/Vol] 12.0 g/dL 12.0-15.0 [facility] Immature granulocytes/100 WB C Auto (Bld)Ordered By: Angy Kahn on 07-05-2025 Immature granulocytes/100 WBC (Bld) 0.500 % 0.0-0.9 [facility] Comment on above: IG% - Immature Granu locytes (promyelocytes, myelocytes and metamyelocytes) > 1% indicates that a LEFT SHIFT is Present. Laboratory - Chemistry and C hemistry - challengeOrdered By: Mary Shea on 07-05-2025 Glucose Ql (U) Negative [facility] Laboratory - UrinalysisOrder ed By: Mary Shea on 07-05-2025 Protein Ql (U) Negative [facility] MCV (mean corpuscular volume ) determinationOrdered By: Angy Kahn on 07-05-2025 MCV (RBC) [Entitic vol] 92.7 fL 81-99 [facility] Mean corpuscular hemoglobin (MCH) determinationOrdered By: Angy Kahn on 07-05-2025 MCH (RBC) [Entitic mass] 31.3 pg 27.0-32.0 [facility] Mean corpuscular hemoglobin concentration (MCHC) determinationOrdered By: Angy Kahn on 07-05-2025 MCHC (RBC) [Mass/Vol] 33.7 g/dL 32-36 [facility] Mean platelet volume determi nationOrdered By: Angy Kahn on 07-05-2025 Platelet mean volume (Bld) [Entitic vol] 8.7 fL 6.2-12.0 [facility] Monocyte percentageOrdered B y: Angy Kahn on 07-05-2025 Monocytes/100 WBC (Bld) 6.0 % 0-10 [facility] Neutrophil percentageOrdered By: Angy Kahn on 07-05-2025 Neutrophils/100 WBC (Bld) 81.4 % High 47-70 [facility] No Panel InformationOrdered By: Mary Shea on 07-05-2025 Urine Buprenorphine Qualitative Negative < 200 ng/mL [facility] Urine Oxycodone Screen Negative < 100 ng/mL [facility] No Panel InformationOrdered By: Angy Kahn on 07-05-2025 HIV (1&2) Antibody Non-Reactive Nonreactive [facility] Comment on above: Non-ReactiveReactive Repeatedly reactive samples must be confirmed according to CDC recommended confirmatory algorithms. The subresults for either HIVAG or AHIV can be used as an aid in the selection of the confirmation algorithm for reactive samples.Send out specimens with Reactive results to [facility] for confirmation.Order the HIV antibody detection and differentiation: #[id number] Nucleated red blood cell per centageOrdered By: Angy Kahn on 07-05-2025 Nucleated RBC/100 WBC (Bld) [Ratio] 0 % 0-5 [facility] Cigarette Filter Inspector Office Visit Reporton 07-05-2025 Cigarette Filter Inspector Office Visit Report [facility] [address], [address] [place] [address] OFFICE VISIT Date of Service: 07/05/25 MR#: [id number] Acct: [id number] Name: KEIRA AVILES Rep #: [id number] : 1990 Provider: Dr. Mary Roberson DO Age/Sex: 35/F Location: [facility] Status: Signed Intake Vital Signs 05/10/25 09:41 06/06/25 08:47 07/05/25 10:43 07/05/25 10:45 Height 5 ft 1 in 5 ft 1 in 5 ft 1 in 5 ft 1 in Weight: 201 lb 6 oz BMI 38.0 BP 125/80 H Intake Visit Reasons: 28wk ob/glucose Gandy Dancer Required: No Is patient in pain?: No Allergies Latex, Natural Rubber Allergy (Mild, Verified 07/05/25 10:43) Rash Medications ???Medication ???Instructions ???Recorded ???Confirmed ???Type cholecalciferol (vitamin D3) 250 250 mcg PO QDAY 01/30/25 07/05/25 History mcg (10,000 unit) capsule inositol 2,000 mg-D chiro inositol ea PO 01/30/25 07/05/25 History 50 mg oral powder packet multivit-min no.71-iron fum 28 1 cap PO DAILY 01/30/25 07/05/25 H istory mg-folate no.1 1 mg-dha 300 mg capsule (PNV-[place]) fosfomycin tromethamine 3 gram 3 g PO ONCE #1 ea 02/19/25 5 Rx oral packet Last Menstrual Period: 12/14/24 Zika: Zika virus screening: Negative : No PFSH PFSH Medical History Seasonal allergies Surgical History [place] teeth extracted Family History Sister MTHFR gene mutation Half sister Spina bifida Mother MTHFR gene mutation Arthritis Hypertension Addiction to drug Grandmother Arthritis Maternal Alcoholism maternal Kidney disease, Onset Age: 32 kidney removed Grandfather Arthritis Maternal Diabetes Maternal Father Alcoholism Social History adopted: No household members: family housing: house current occupational status: employed 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, coolant) pets and animals: Yes (Avoid litter box) pets and animals: cat(s) and dog(s) history of recent travel: No sexually active: Yes Smoking Status: Never smoker alcohol intake: current alcohol intake frequency: 3 or more drinks per day Alcohol type: wine details: Not since finding out substance use type: former substance user and marijuana well-balanced diet: daily or most days caffeine: Yes Type: coffee Number of servings: 2 eating out: 1-3 times/week during the past year weight has: remained stable what type of physical activity do you participate in: none estefani/protestant: None seatbelt use: always do you feel safe at home: Yes additional social history: MOH[employer]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 OB Visit SANDY Calculator Estimated Delivery Date Method Current WG Current Estimate 09/28/25 Ultrasound #1 27w 6d Other Estimates 09/20/25 LMP (Certain) 29w 0d Expected Delivery Route/Plan Labor Preferences- CB/BF classes: [] labor support person: [] labor intervention preferences: [] pain management options preferred: [] cut cord/dad catch: [] : [] PP control planned: [] discussed possible routes of delivery and associated risks: [] special requests: [] Specific Issue/Plans Covid status: [] Flu vaccine: [] Tdap vaccine: [] Rhogam: [] LARC form signed: [] Problem list reviewed and updated with the most current plan of care details and appropriate orders placed. Relevant counseling for the gestational age provided. Continue routine care and follow up unless otherwise noted in visit notes/problem list details Initial Weight: Not Recorded Date -???-???-???-???-???-?? ?-???-???-???-???-???-? ??- EGA Weight BP Urine Prot -???-???-???-???-???-?? ?-???-???-???-???-???-? ??- Glucose FHR FuHt Pres Dilation -???-???-???-???-???-?? ?-???-???-???-???-???-? ??- Effaced St Visit Note 02/16/25 -???-???-???-???-???-?? ?-???-???-???-???-???-? ??- 8w 0d 170 lb 8 oz 109/68 -???-???-???-???-???-?? ?-???-???-???-???-???-? ??- 166 -???-???-???-???-???-?? ?-???-???-???-???-???-? ??- 03/13/25 -???-???-???-???-???-?? ?-???-???-???-???-???-? ??- 11w 4d 168 lb 6 oz 106/71 Negative -???-???-???-???-???-?? ?-???-???-???-???-???-? ??- Negative 168 -???-???-???-???-???-?? ?-???-???-???-???-???-? ??- MH-No VB. Na usea improved. Br US con (more content not included)... Normal [facility] Platelet countOrdered By: Ladarius Kahn on 07-05-2025 Platelets (Bld) [#/Vol] 315 10*3/uL 150-450 [facility] Quantitative urine opiates m easurementOrdered By: Mary Shea on 07-05-2025 Opiates Ql (U) Negative < 300 ng/mL [facility] RBC Auto (Bld) [#/Vol]Ordere d By: Angy Kahn on 07-05-2025 RBC (Bld) [#/Vol] 3.84 10*6/uL Low 4.2-5.4 [facility] Screening urine fentanyl naresh surementOrdered By: Mary Shea on 07-05-2025 fentaNYL Screen Ql (U) Negative <5 ng/mL [facility] Comment on above: CONFIRMATORY TESTING FOR ALL POSITIVE URINE DRUG SCREENRESULTS WILL ONLY BE SENT OUT UPON PHYSICIAN ORDER. Is[facility] Pro Urine Drug Screen methods provide only preliminaryanalytical test results. A more specific alternate chemicalmethod must be used in order to obtain a confirmedanalytical result. Gas chromatography/mass spectrometery(GC/MS) is the preferred confirmatory method. Clinicalconsideration and professional judgement should be appliedto any drug of abuse test result, particularly whenpreliminary positive results are used. Urine TCA testing must be ordered separately. Use test mnemonic: UTCA Syphilis Antibodieson 2024 Syphilis Abs Non-Reactive Normal Nonreactive [facility] Comment on above: Performed By: #### L 505.5000, M100.2200, L7000.1800, L7400.0280 #### [facility] [address] [place], [place], [address] Urine Drug Screen (VISTA)on 07-05-2025 AMPHETAMINES Negative Normal <1000 ng/mL [facility] Comment on above: Order Comment: Speci men Comment: [id number] Specimen Comment: Source.............Cervix Specimen Comment: LMP / Prev Treat...[id number] Specimen Comment: No. of containers..01 ThinPrep Vial Performed By: #### L 505.5000, M100.2200, L7000.1800, L7400.0280 #### [facility] [address] [place], [place], [address] BARBITIURATES Negative Normal < 200 ng/mL [facility] Comment on above: Order Comment: Speci men Comment: [id number] Specimen Comment: Source.............Cervix Specimen Comment: LMP / Prev Treat...[id number] Specimen Comment: No. of containers..01 ThinPrep Vial Performed By: #### L 505.5000, M100.2200, L7000.1800, L7400.0280 #### [facility] [address] [place], [address] BENZODIAZIPINE Negative Normal < 200 ng/mL [facility] Comment on above: Order Comment: Speci men Comment: [id number] Specimen Comment: Source.............Cervix Specimen Comment: LMP / Prev Treat...[id number] Specimen Comment: No. of containers..01 ThinPrep Vial Performed By: #### L 505.5000, M100.2200, L7000.1800, L7400.0280 #### [facility] [address] [place], [address] BUP Ur Drug Scr Negative Normal < 200 ng/mL [facility] Comment on above: Order Comment: Speci men Comment: [id number] Specimen Comment: Source.............Cervix Specimen Comment: LMP / Prev Treat...[id number] Specimen Comment: No. of containers..01 ThinPrep Vial Performed By: #### L 505.5000, M100.2200, L7000.1800, L7400.0280 #### [facility] [address] [place], [address] COCAINE Negative Normal < 300 ng/mL [facility] Comment on above: Order Comment: Speci men Comment: [id number] Specimen Comment: Source.............Cervix Specimen Comment: LMP / Prev Treat...[id number] Specimen Comment: No. of containers..01 ThinPrep Vial Performed By: #### L 505.5000, M100.2200, L7000.1800, L7400.0280 #### [facility] [address] [place], [place], [address] Fentanyl Negative Normal <5 ng/mL [facility] Comment on above: Order Comment: Speci men Comment: [id number] Specimen Comment: Source.............Cervix Specimen Comment: LMP / Prev Treat...[id number] Specimen Comment: No. of containers..01 ThinPrep Vial Result Comment: CONF IRMATORY TESTING FOR ALL POSITIVE URINE DRUG SCREEN RESULTS WILL ONLY BE SENT OUT UPON PHYSICIAN ORDER. Isma Pro Urine Drug Screen methods provide only preliminary analytical test results. A more specific alternate chemical method must be used in order to obtain a confirmed analytical result. Gas chromatography/mass spectrometery (GC/MS) is the preferred confirmatory method. Clinical consideration and professional judgement should be applied to any drug of abuse test result, particularly when preliminary positive results are used. Urine TCA testing must be ordered separately. Use test mnemonic: UTCA Performed By: #### L 505.5000, M100.2200, L7000.1800, L7400.0280 #### [facility] [address] [place], [address] METHADONE Negative Normal < 300 ng/mL [facility] Comment on above: Order Comment: Speci men Comment: [id number] Specimen Comment: Source.............Cervix Specimen Comment: LMP / Prev Treat...[id number] Specimen Comment: No. of containers..01 ThinPrep Vial Performed By: #### L 505.5000, M100.2200, L7000.1800, L7400.0280 #### [facility] [address] [place], [address] OPIATES Negative Normal < 300 ng/mL [facility] Comment on above: Order Comment: Speci men Comment: [id number] Specimen Comment: Source.............Cervix Specimen Comment: LMP / Prev Treat...[id number] Specimen Comment: No. of containers..01 ThinPrep Vial Performed By: #### L 505.5000, M100.2200, L7000.1800, L7400.0280 #### [facility] [address] [place], [address] OXYCODONE Negative Normal < 100 ng/mL [facility] Comment on above: Order Comment: Speci men Comment: [id number] Specimen Comment: Source.............Cervix Specimen Comment: LMP / Prev Treat...[id number] Specimen Comment: No. of containers..01 ThinPrep Vial Performed By: #### L 505.5000, M100.2200, L7000.1800, L7400.0280 #### [facility] [address] [place], [address] PCP Negative Normal < 25 ng/mL [facility] Comment on above: Order Comment: Speci men Comment: [id number] Specimen Comment: Source.............Cervix Specimen Comment: LMP / Prev Treat...[id number] Specimen Comment: No. of containers..01 ThinPrep Vial Performed By: #### L 505.5000, M100.2200, L7000.1800, L7400.0280 #### [facility] [address] [place], [place], [address] THC Negative Normal < 50 ng/mL [facility] Comment on above: Order Comment: Speci men Comment: [id number] Specimen Comment: Source.............Cervix Specimen Comment: LMP / Prev Treat...[id number] Specimen Comment: No. of containers..01 ThinPrep Vial Performed By: #### L 505.5000, M100.2200, L7000.1800, L7400.0280 #### [facility] [address] [place], [place], [address] Urine benzodiazepine levelOr dered By: Mary Shea on 07-05-2025 Benzodiazepines Ql (U) Negative < 200 ng/mL [facility] Urine cocaine levelOrdered B y: Mary Shea on 07-05-2025 Cocaine Ql (U) Negative < 300 ng/mL [facility] Urine tipei-8-voqzcztpjnvuts abinol (THC) measurementOrdered By: Mary Shea on 07-05-2025 Cannabinoids Screen Ql (U) Negative < 50 ng/mL [facility] Urine phencyclidine (PCP) de tectionOrdered By: Mary Shea on 07-05-2025 Phencyclidine Ql (U) Negative < 25 ng/mL [facility] White blood cell (WBC) count Ordered By: Angy Kahn on 07-05-2025 WBC (Bld) [#/Vol] 13.7 10*3/uL High 4.4-11.0 [facility] - Chemistry and C hemistry - challengeOrdered By: Angy Kahn on 06-06-2025 Glucose Ql (U) Negative [facility] - UrinalysisOrder ed By: Angy Kahn on 06-06-2025 Protein Ql (U) Negative [facility] Cigarette Filter Inspector Office Visit Reporton 06-06-2025 Cigarette Filter Inspector Office Visit Report [facility] [address], [address] [place] [address] OFFICE VISIT Date of Service: 06/06/25 MR#: [id number] Acct: [id number] Name: KEIRA AVILES Rep #: [id number] : 1990 Provider: CHARLES amador Age/Sex: 35/F Location[place] [facility] [place] [facility] [place] Status: Signed Intake Vital Signs 03/13/25 08:45 05/10/25 09:41 06/06/25 08:47 Height 5 ft 1 in 5 ft 1 in 5 ft 1 in Weight: 191 lb 8 oz BMI 36.1 BP 120/79 Intake Visit Reasons: 24wk ob Chief Complaint: 24 Week OB Gandy Dancer Required: No Is patient in pain?: No Allergies Latex, Natural Rubber Allergy (Mild, Verified 06/06/25 08:50) Rash Medications ???Medication ???Instructions ???Recorded ???Confirmed ???Type cholecalciferol (vitamin D3) 250 250 mcg PO QDAY 01/30/25 06/06/25 History mcg (10,000 unit) capsule inositol 2,000 mg-D chiro inositol ea PO 01/30/25 06/06/25 History 50 mg oral powder packet multivit-min no.71-iron fum 28 1 cap PO DAILY 01/30/25 06/06/25 H istory mg-folate no.1 1 mg-dha 300 mg capsule (PNV-[place]) fosfomycin tromethamine 3 gram 3 g PO ONCE #1 ea 02/19/25 5 Rx oral packet Last Menstrual Period: 12/14/24 Zika: Zika virus screening: Negative : No PFSH PFSH Medical History Seasonal allergies Surgical History [place] teeth extracted Family History Sister MTHFR gene mutation Half sister Spina bifida Mother MTHFR gene mutation Arthritis Hypertension Addiction to drug Grandmother Arthritis Maternal Alcoholism maternal Kidney disease, Onset Age: 32 kidney removed Grandfather Arthritis Maternal Diabetes Maternal Father Alcoholism Social History adopted: No household members: family housing: house current occupational status: employed 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, coolant) pets and animals: Yes (Avoid litter box) pets and animals: cat(s) and dog(s) history of recent travel: No sexually active: Yes Smoking Status: Never smoker alcohol intake: current alcohol intake frequency: 3 or more drinks per day Alcohol type: wine details: Not since finding out substance use type: former substance user and marijuana well-balanced diet: daily or most days caffeine: Yes Type: coffee Number of servings: 2 eating out: 1-3 times/week during the past year weight has: remained stable what type of physical activity do you participate in: none estefani/protestant: None seatbelt use: always do you feel safe at home: Yes additional social history: MOHAMUD-Dionisio Perez 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 OB Visit SANDY Calculator Estimated Delivery Date Method Current WG Current Estimate 09/28/25 Ultrasound #1 23w 5d Other Estimates 09/20/25 LMP (Certain) 24w 6d Expected Delivery Route/Plan Labor Preferences- CB/BF classes: [] labor support person: [] labor intervention preferences: [] pain management options preferred: [] cut cord/dad catch: [] : [] PP control planned: [] discussed possible routes of delivery and associated risks: [] special requests: [] Specific Issue/Plans Covid status: [] Flu vaccine: [] Tdap vaccine: [] Rhogam: [] LARC form signed: [] Problem list reviewed and updated with the most current plan of care details and appropriate orders placed. Relevant counseling for the gestational age provided. Continue routine care and follow up unless otherwise noted in visit notes/problem list details Initial Weight: Not Recorded Date -???-???-???-???-???-?? ?-???-???-???-???-???-? ??- EGA Weight BP Urine Prot -???-???-???-???-???-?? ?-???-???-???-???-???-? ??- Glucose FHR FuHt Pres Dilation -???-???-???-???-???-?? ?-???-???-???-???-???-? ??- Effaced St Visit Note 02/16/25 -???-???-???-???-???-?? ?-???-???-???-???-???-? ??- 8w 0d 170 lb 8 oz 109/68 -???-???-???-???-???-?? ?-???-???-???-???-???-? ??- 166 -???-???-???-???-???-?? ?-???-???-???-???-???-? ??- 03/13/25 -???-???-???-???-???-?? ?-???-???-???-???-???-? ??- 11w 4d 168 lb 6 oz 106/71 Negative -???-???-???-???-???-?? ?-???-???-???-???-???-? ??- Negative 168 -???-???-???-???-???-?? ?-???-???-???-???-???-? ??- MH-No VB. Na usea improved. Br US confirm FHT. Discussed (more content not included)... Normal [facility] - Chemistry and C hemistry - challengeOrdered By: Amira Alvarado on 05-10-2025 Glucose Ql (U) Negative [facility] - UrinalysisOrder ed By: Amira Alvarado on 05-10-2025 Protein Ql (U) Negative [facility] Cigarette Filter Inspector Office Visit Reporton 05-10-2025 Cigarette Filter Inspector Office Visit Report [facility] [address], [address] [place] [address] OFFICE VISIT Date of Service: 05/10/25 MR#: [id number] Acct: [id number] Name: KEIRA AVILES Rep #: [id number] : 1990 Provider: Dr. Amira ward MD Age/Sex: 35/F Location[place] [facility] [place] [facility] [place] Status: Signed Intake Vital Signs 03/13/25 08:45 04/09/25 11:10 05/10/25 09:41 Height 5 ft 1 in 5 ft 1 in 5 ft 1 in Weight: 185 lb BMI 34.9 BP 123/74 H Intake Visit Reasons: 19wk ob Gandy Dancer Required: No Is patient in pain?: No Allergies Latex, Natural Rubber Allergy (Mild, Verified 05/10/25 09:43) Rash Medications ???Medication ???Instructions ???Recorded ???Confirmed ???Type cholecalciferol (vitamin D3) 250 250 mcg PO QDAY 01/30/25 05/10/25 History mcg (10,000 unit) capsule inositol 2,000 mg-D chiro inositol ea PO 01/30/25 05/10/25 History 50 mg oral powder packet multivit-min no.71-iron fum 28 1 cap PO DAILY 01/30/25 05/10/25 H istory mg-folate no.1 1 mg-dha 300 mg capsule (PNV-[place]) fosfomycin tromethamine 3 gram 3 g PO ONCE #1 ea 02/19/25 5 Rx oral packet Last Menstrual Period: 12/14/24 Zika: Zika virus screening: Negative : No PFSH PFSH Medical History Seasonal allergies Surgical History [place] teeth extracted Family History Sister MTHFR gene mutation Half sister Spina bifida Mother MTHFR gene mutation Arthritis Hypertension Addiction to drug Grandmother Arthritis Maternal Alcoholism maternal Kidney disease, Onset Age: 32 kidney removed Grandfather Arthritis Maternal Diabetes Maternal Father Alcoholism Social History adopted: No household members: family housing: house current occupational status: employed 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, 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) pets and animals: Yes (Avoid litter box) pets and animals: cat(s) and dog(s) history of recent travel: No sexually active: Yes Smoking Status: Never smoker alcohol intake: current alcohol intake frequency: 3 or more drinks per day Alcohol type: wine details: Not since finding out substance use type: former substance user and marijuana well-balanced diet: daily or most days caffeine: Yes Type: coffee Number of servings: 2 eating out: 1-3 times/week during the past year weight has: remained stable what type of physical activity do you participate in: none estefani/protestant: None seatbelt use: always do you feel safe at home: Yes additional social history: MOHAMUD-Dionisio Osorioist History 1 Elective abortions Hx Para 0 Spontaneous abortions Hx # Term Pregnancies Ectopic pregnancies Hx # Pregnancies Multiple births # of living children HPI 19wk ob Details: KEIRA AVILES is a 35 year old who presents for routine OB visit. OB Visit SANDY Calculator Estimated Delivery Date Method Current WG Current Estimate 09/28/25 Ultrasound #1 19w 6d Other Estimates 09/20/25 LMP (Certain) 21w 0d Expected Delivery Route/Plan Labor Preferences- CB/BF classes: [] labor support person: [] labor intervention preferences: [] pain management options preferred: [] cut cord/dad catch: [] : [] PP control planned: [] discussed possible routes of delivery and associated risks: [] special requests: [] Specific Issue/Plans Covid status: [] Flu vaccine: [] Tdap vaccine: [] Rhogam: [] LARC form signed: [] Problem list reviewed and updated with the most current plan of care details and appropriate orders placed. Relevant counseling for the gestational age provided. Continue routine care and follow up unless otherwise noted in visit notes/problem list details Initial Weight: Not Recorded Date -???-???-???-???-???-?? ?-???-???-???-???-???-? ??- EGA Weight BP Urine Prot -???-???-???-???-???-?? ?-???-???-???-???-???-? ??- Glucose FHR FuHt Pres Dilation -???-???-???-???-???-?? ?-???-???-???-???-???-? ??- Effaced St Visit Note 02/16/25 -???-???-???-???-???-?? ?-???-???-???-???-???-? ??- 8w 0d 170 lb 8 oz 109/68 -???-???-???-???-???-?? ?-???-???-???-???-???-? ??- 166 -???-???-???-???-???-?? ?-???-???-???-???-???-? ??- 03/13/25 -???-???-???-???-???-?? ?-???-???-???-???-???-? ??- 11w 4d 168 lb 6 oz 106/71 Negative -???-???-???-???-???-?? ?-???-???-???-???-???-? ??- Negative 168 -???-???-???-???-???-?? ?-???-???-???-???-???-? ??- -No VB. Na usea improved. Br US confirm FHT. Discussed UTI, will call expanded culture result (more content not included)... Normal [facility] URINALYSIS, COMPLETEOrdered By: Jennifer Ramos on 05-09-2025 Bilirubin Ql (U) Negative Normal Negative [facility] Comment on above: Order Comment: Relea se to patient->Automatic Character Clear Normal [facility] Comment on above: Order Comment: Relea se to patient->Automatic Color (U) Light Yellow Normal [facility] Comment on above: Order Comment: Relea se to patient->Automatic Nitrite Ql (U) Negative Normal Negative [facility] Comment on above: Order Comment: Relea se to patient->Automatic pH (U) 7.0 [pH] Normal 5.0-8.0 [facility] Comment on above: Order Comment: Relea se to patient->Automatic URINALYSIS, COMPLETEon 05-09 Bacteria Rare Abnormal Negative [facility] Comment on above: Order Comment: Relea se to patient->Automatic Epithelial cells.squamous LM.HPF (Urine sed) [#/Area] 0 /[HPF] Normal <=2 [facility] Comment on above: Order Comment: Relea se to patient->Automatic Glucose Ql (U) Normal Normal Normal [facility] Comment on above: Order Comment: Relea se to patient->Automatic Ketones Ql (U) Negative Normal Negative [facility] Comment on above: Order Comment: Relea se to patient->Automatic Leukocyte esterase Test strip Ql (U) Negative Normal Negative [facility] Comment on above: Order Comment: Relea se to patient->Automatic Mucous Small Normal Neg-Small [facility] Comment on above: Order Comment: Relea se to patient->Automatic Protein Ql (U) Negative Normal Neg.-Trace [facility] Comment on above: Order Comment: Relea se to patient->Automatic RBC 0 /HPF Normal <=2 [facility] Comment on above: Order Comment: Relea se to patient->Automatic Renal Epithelial Cells 0 /HPF Normal <=2 [facility] Comment on above: Order Comment: Relea se to patient->Automatic Specific gravity (U) [Rel density] 1.012 Normal Reference Range: 1.005-1.030 [facility] Comment on above: Order Comment: Relea se to patient->Automatic Transitional Epithelial Cells 0 /HPF Normal <=2 [facility] Comment on above: Order Comment: Relea se to patient->Automatic Urobilinogen Normal Normal Normal [facility] Comment on above: Order Comment: Relea se to patient->Automatic Volume 12 mL Normal [facility] Comment on above: Order Comment: Relea se to patient->Automatic WBC 0 /HPF Normal <=2 [facility] Comment on above: Order Comment: Relea se to patient->Automatic URINE CULTUREon 05-09-2025 Bacteria identified Cx Nom (U) Urine Culture Three or more organisms present, none are predominant, which usually suggests contamination during collection. Recollect sample if clinically indicated. Normal [facility] Comment on above: Order Comment: Relea se to patient->Automatic Urinalysis, Complete (Chemis try & Micro)Ordered By: Jennifer Ramos on 05-09-2025 Bacteria Auto Ql (U) Rare Abnormal Negative [facility] Epithelial cells.renal Computer assisted (U) [#/Area] 0 [facility] Epithelial cells.squamous Auto (Urine sed) [#/Area] 0 [facility] Glucose Auto test strip Ql (U) Normal Normal [facility] Hemoglobin Auto test strip Ql (U) Negative Negative [facility] Interpretation and review of laboratory results Abnormal [facility] Ketones (U) [Mass/Vol] Negative Negative [facility] Leukocyte esterase Auto test strip Ql (U) Negative Negative Jerry/uL [facility] Mucus Auto Ql (U) Small Neg-Small [facility] Protein (U) [Mass/Vol] Negative Neg.-Trace [facility] RBC Auto (Urine sed) [#/Area] 0 [facility] Specific gravity Refractometry automated (U) [Rel density] 1.012 Reference Range: 1.005-1.030 [facility] Specimen volume (U) 12 mL [facility] Transitional cells Computer assisted (U) [#/Area] 0 [facility] Urobilinogen (U) [Mass/Vol] Normal Normal mg/dL [facility] WBC Auto (Urine sed) [#/Area] 0 [facility] - Chemistry and C hemistry - challengeOrdered By: Violeta Nair on 04-09-2025 Glucose Ql (U) Negative [facility] Laboratory - UrinalysisOrder ed By: Violeta Nair on 04-09-2025 Protein Ql (U) Negative [facility] Cigarette Filter Inspector Office Visit Reporton 04-09-2025 Cigarette Filter Inspector Office Visit Report [address], [address] [place] [address] OFFICE VISIT Date of Service: 04/09/25 MR#: [id number] Acct: [id number] Name: KEIRA AVILES Rep #: [id number] : 1990 Provider: KENNY Rojas [facility] Age/Sex: 35/F Location[place] [facility] [place] [facility] [place] Status: Signed Intake Vital Signs 02/16/25 11:46 03/13/25 08:45 04/09/25 11:10 04/09/25 11:10 Height 5 ft 1 in 5 ft 1 in 5 ft 1 in 5 ft 1 in Weight: 171 lb 4 oz BMI 32.3 BP 126/77 H Intake Visit Reasons: 15wk ob Chief Complaint: 15wk OB Gandy Dancer Required: No Is patient in pain?: No Allergies Latex, Natural Rubber Allergy (Mild, Verified 04/09/25 11:06) Rash Medications ???Medication ???Instructions ???Recorded ???Confirmed ???Type cholecalciferol (vitamin D3) 250 250 mcg PO QDAY 01/30/25 04/09/25 History mcg (10,000 unit) capsule inositol 2,000 mg-D chiro inositol ea PO 01/30/25 04/09/25 History 50 mg oral powder packet multivit-min no.71-iron fum 28 1 cap PO DAILY 01/30/25 04/09/25 H istory mg-folate no.1 1 mg-dha 300 mg capsule ([facility]-[place]) fosfomycin tromethamine 3 gram 3 g PO ONCE #1 ea 02/19/25 5 Rx oral packet Last Menstrual Period: 12/14/24 : No PFSH PFSH Medical History Seasonal allergies Surgical History [place] teeth extracted Family History Sister MTHFR gene mutation Half sister Spina bifida Mother MTHFR gene mutation Arthritis Hypertension Addiction to drug Grandmother Arthritis Maternal Alcoholism maternal Kidney disease, Onset Age: 32 kidney removed Grandfather Arthritis Maternal Diabetes Maternal Father Alcoholism Social History adopted: No household members: family housing: house current occupational status: employed 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, 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) pets and animals: Yes (Avoid litter box) pets and animals: cat(s) and dog(s) history of recent travel: No sexually active: Yes Smoking Status: Never smoker alcohol intake: current alcohol intake frequency: 3 or more drinks per day Alcohol type: wine details: Not since finding out substance use type: former substance user and marijuana well-balanced diet: daily or most days caffeine: Yes Type: coffee Number of servings: 2 eating out: 1-3 times/week during the past year weight has: remained stable what type of physical activity do you participate in: none estefani/protestant: None seatbelt use: always do you feel safe at home: Yes additional social history: MOHAMUD-Dionisio Andradeer-Chris Perez Pile 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 OB Visit SANDY Calculator Estimated Delivery Date Method Current WG Current Estimate 09/28/25 Ultrasound #1 15w 3d Other Estimates 09/20/25 LMP (Certain) 16w 4d Expected Delivery Route/Plan Labor Preferences- CB/BF classes: [] labor support person: [] labor intervention preferences: [] pain management options preferred: [] cut cord/dad catch: [] : [] PP control planned: [] discussed possible routes of delivery and associated risks: [] special requests: [] Specific Issue/Plans Covid status: [] Flu vaccine: [] Tdap vaccine: [] Rhogam: [] LARC form signed: [] Problem list reviewed and updated with the most current plan of care details and appropriate orders placed. Relevant counseling for the gestational age provided. Continue routine care and follow up unless otherwise noted in visit notes/problem list details Initial Weight: Not Recorded Date -???-???-???-???-???-?? ?-???-???-???-???-???-? ??- EGA Weight BP Urine Prot -???-???-???-???-???-?? ?-???-???-???-???-???-? ??- Glucose FHR FuHt Pres Dilation -???-???-???-???-???-?? ?-???-???-???-???-???-? ??- Effaced St Visit Note 02/16/25 -???-???-???-???-???-?? ?-???-???-???-???-???-? ??- 8w 0d 170 lb 8 oz 109/68 -???-???-???-???-???-?? ?-???-???-???-???-???-? ??- 166 -???-???-???-???-???-?? ?-???-???-???-???-???-? ??- 03/13/25 -???-???-???-???-???-?? ?-???-???-???-???-???-? ??- 11w 4d 168 lb 6 oz 106/71 Negative -???-???-???-???-???-?? ?-???-???-???-???-???-? ??- Negative 168 -???-???-???-???-???-?? ?-???-???-???-???-???-? ??- -No VB. Na usea improved. Br US confirm FHT. Discussed UTI, will call expanded culture result (more content not included)... Normal [facility] Toxoplasma Gondii IgGon 02-19 TOXOPLASMA IgG < 3.0 Normal 0.0-7.1 [facility] Comment on above: Result Comment: Nega tive <7.2 Equivocal 7.2 - 8.7 Positive >8.7 Performed By: #### L 505.5000, M100.2200, L7000.1800, L8000.0280 #### [facility] [address] [place], [address] Toxoplasma Gondii IgMon 02-19 Tox. gondii Com Comment Normal . [facility] Comment on above: Result Comment: It i s presumed the patient has not been infected with and is not undergoing an acute infection with Toxoplasma. If symptoms persist, submit a new specimen after three weeks. Performed at: - [facility] [address] [place] [id number] Indoor Landscape Architect: Jorge Gregg PhD, Phone: [phone] Performed By: #### L 505.5000, M100.2200, L7000.1800, L7400.0280 #### [facility] [address] [place], [address] TOXOPLASMA IgM < 3.0 Normal 0.0-7.9 [facility] Comment on above: Result Comment: Nega tive <8.0 Equivocal 8.0 - 9.9 Positive >9.9 Performed By: #### L 505.5000, M100.2200, L7000.1800, L7400.0280 #### [facility] [address] [place], [address] Urine Cultureon 03-14-2025 [facility] Comments: 2 week ALEISHA Urine Culture Urine Culture Myroides spp [place] Count 50,000-80,000 * This is an amended result. * A prior result that was reported as final has been changed. 03/14/25 1434 by SHANNON * This is an amended result. * A prior result that was reported as final has been changed. 03/14/25 1435 by SHANNON Myroides spp: REACTION levoFLOXacin Islt RUDY <=0.12 Meropenem Islt RUDY <=0.25 S Pip+Tazo Islt RUDY <=4 S TMP SMX Islt RUDY 80 R Myroides spp: REACTION Aztreonam Islt RUDY 2 Doxycycline Islt RUDY <=0.5 S Imipenem Islt RUDY <=0.5 S Normal [facility] Comment on above: Performed By: #### L 505.5000, M100.2200, L7000.1800, L7400.0280 #### [facility] [address] [place], [address] Absolute lymphocyte countOrd ered By: Mary Shea on 03-13-2025 Lymphocytes Auto (Unsp spec) [#/Vol] 2.18 10*3/uL 0.83-4.51 [facility] Absolute neutrophil countOrd ered By: Mary hSea on 03-13-2025 Neutrophils (Bld) [#/Vol] 8.8 10*3/uL High 2.0-7.7 [facility] Automated lymphocyte count a s percentage of total leukocytesOrdered By: Mary Garridogail on 03-13-2025 Lymphocytes/100 WBC Auto (Unsp spec) 17.7 % Low 19-41 [facility] Basophil percentageOrdered B y: Mary Shea on 03-13-2025 Basophils/100 WBC (Bld) 0.4 % 0-1 [facility] CBC W/Diff, Automatedon 02-19 Absolute Lymph 2.18 X10 3/uL Normal 0.83-4.51 [facility] Comment on above: Performed By: #### B TS, L3890.6301, L509.4006, L100.0100, L3400.1990, L501.9985, L3400.1980, L509.8002, L3890.6006, L3890.6102 #### [facility] [address] [place], [address] Absolute Neut 8.8 X10 3/uL High 2.0-7.7 [facility] Comment on above: Performed By: #### B TS, L3890.6301, L509.4006, L100.0100, L3400.1990, L501.9985, L3400.1980, L509.8002, L3890.6006, L3890.6102 #### [facility] [address] [place], [address] Basophils/100 WBC (Bld) 0.4 % Normal 0-1 [facility] Comment on above: Performed By: #### B TS, L3890.6301, L509.4006, L100.0100, L3400.1990, L501.9985, L3400.1980, L509.8002, L3890.6006, L3890.6102 #### [facility] [address] [place], [address] Eosinophils/100 WBC (Bld) 2.0 % Normal 0-5 [facility] Comment on above: Performed By: #### B TS, L3890.6301, L509.4006, L100.0100, L3400.1990, L501.9985, L3400.1980, L509.8002, L3890.6006, L3890.6102 #### [facility] [address] [place], [address] Erythrocyte distribution width (RBC) [Ratio] 12.3 % Normal 11.6-14.6 [facility] Comment on above: Performed By: #### B TS, L3890.6301, L509.4006, L100.0100, L3400.1990, L501.9985, L3400.1980, L509.8002, L3890.6006, L3890.6102 #### [facility] [address] [place], [address] Hematocrit (Bld) [Volume fraction] 36.1 % Low 37-47 [facility] Comment on above: Performed By: #### B TS, L3890.6301, L509.4006, L100.0100, L3400.1990, L501.9985, L3400.1980, L509.8002, L3890.6006, L3890.6102 #### [facility] [address] [place], [address] Hemoglobin (Bld) [Mass/Vol] 12.4 g/dL Normal 12.0-15.0 [facility] Comment on above: Performed By: #### B TS, L3890.6301, L509.4006, L100.0100, L3400.1990, L501.9985, L3400.1980, L509.8002, L3890.6006, L3890.6102 #### [facility] [address], [address] IG% 0.500 Normal 0.0-0.9 [facility] Comment on above: Result Comment: IG% - Immature Granulocytes (promyelocytes, myelocytes and metamyelocytes) > 1% indicates that a LEFT SHIFT is Present. Performed By: #### B TS, L3890.6301, L509.4006, L100.0100, L3400.1990, L501.9985, L3400.1980, L509.8002, L3890.6006, L3890.6102 #### [facility] [address] [place], [address] Lymphocytes/100 WBC (Bld) 17.7 % Low 19-41 [facility] Comment on above: Performed By: #### B TS, L3890.6301, L509.4006, L100.0100, L3400.1990, L501.9985, L3400.1980, L509.8002, L3890.6006, L3890.6102 #### [facility] [address] [place], [address] MCH (RBC) [Entitic mass] 31.1 pg Normal 27.0-32.0 [facility] Comment on above: Performed By: #### B TS, L3890.6301, L509.4006, L100.0100, L3400.1990, L501.9985, L3400.1980, L509.8002, L3890.6006, L3890.6102 #### [facility] [address] [place], [address] MCHC (RBC) [Mass/Vol] 34.3 g/dL Normal 32-36 [facility] Comment on above: Performed By: #### B TS, L3890.6301, L509.4006, L100.0100, L3400.1990, L501.9985, L3400.1980, L509.8002, L3890.6006, L3890.6102 #### [facility] [address] [place], [address] MCV (RBC) [Entitic vol] 90.5 fL Normal 81-99 [facility] Comment on above: Performed By: #### B TS, L3890.6301, L509.4006, L100.0100, L3400.1990, L501.9985, L3400.1980, L509.8002, L3890.6006, L3890.6102 #### [facility] [address] [place], [address] Monocytes/100 WBC (Bld) 7.5 % Normal 0-10 [facility] Comment on above: Performed By: #### B TS, L3890.6301, L509.4006, L100.0100, L3400.1990, L501.9985, L3400.1980, L509.8002, L3890.6006, L3890.6102 #### [facility] [address] [place], [address] Neutrophils/100 WBC (Bld) 71.9 % High 47-70 [facility] Comment on above: Performed By: #### B TS, L3890.6301, L509.4006, L100.0100, L3400.1990, L501.9985, L3400.1980, L509.8002, L3890.6006, L3890.6102 #### [facility] [address] [place], [address] Nucleated RBC (Bld) [#/Vol] 0 10*3/uL Normal 0-5 [facility] Comment on above: Performed By: #### B TS, L3890.6301, L509.4006, L100.0100, L3400.1990, L501.9985, L3400.1980, L509.8002, L3890.6006, L3890.6102 #### [facility] [address] [place], [address] Platelet mean volume (Bld) [Entitic vol] 8.9 fL Normal 6.2-12.0 [facility] Comment on above: Performed By: #### B TS, L3890.6301, L509.4006, L100.0100, L3400.1990, L501.9985, L3400.1980, L509.8002, L3890.6006, L3890.6102 #### [facility] [address] [place], [address] Platelets (Bld) [#/Vol] 318 10*3/uL Normal 150-450 [facility] Comment on above: Performed By: #### B TS, L3890.6301, L509.4006, L100.0100, L3400.1989, L501.9985, L3400.1980, L509.8002, L3890.6006, L3890.6102 #### [facility] [address] [place], [address] RBC (Bld) [#/Vol] 3.99 10*6/uL Low 4.2-5.4 [facility] Comment on above: Performed By: #### B TS, L3890.6301, L509.4006, L100.0100, L3400.1990, L501.9985, L3400.1980, L509.8002, L3890.6006, L3890.6102 #### [facility] [address] [place], [address] RDW SD 40.8 fl Normal 35.1-43.9 [facility] Comment on above: Performed By: #### B TS, L3890.6301, L509.4006, L100.0100, L3400.1990, L501.9985, L3400.1980, L509.8002, L3890.6006, L3890.6102 #### [facility] [address] [place], [address] WBC (Bld) [#/Vol] 12.3 10*3/uL High 4.4-11.0 [facility] Comment on above: Performed By: #### B TS, L3890.6301, L509.4006, L100.0100, L3400.1990, L501.9985, L3400.1980, L509.8002, L3890.6006, L3890.6102 #### [facility] [address] [place], [address] Eosinophil percentageOrdered By: Mary Shea on 03-13-2025 Eosinophils/100 WBC (Bld) 2.0 % 0-5 [facility] Erythrocyte distribution wid th ratioOrdered By: Mary Shea on 03-13-2025 Erythrocyte distribution width (RBC) [Ratio] 12.3 % 11.6-14.6 [facility] Erythrocyte distribution wid th standard deviationOrdered By: Mary Shea on 03-13-2025 Erythrocyte distribution width (RBC) [Ratio] 40.8 fl 35.1-43.9 [facility] HIVon 03-13-2025 HIV Non-Reactive Normal Nonreactive [facility] Comment on above: Result Comment: Non- Reactive Reactive Repeatedly reactive samples must be confirmed according to CDC recommended confirmatory algorithms. The subresults for either HIVAG or AHIV can be used as an aid in the selection of the confirmation algorithm for reactive samples. Send out specimens with Reactive results to [facility] for confirmation. Order the HIV antibody detection and differentiation: lc#[id number] Performed By: #### L 505.5000, M100.2200, L7000.1800, L7400.0280 #### [facility] [address] [place], [address] Hematocrit Auto (Bld) [Volum e fraction]Ordered By: Mary Shea on 03-13-2025 Hematocrit (Bld) [Volume fraction] 36.1 % Low 37-47 [facility] Hemoglobin A1con 03-13-2025 HbA1c (Bld) [Mass fraction] 4.8 % Normal <=5.6 [facility] Comment on above: Result Comment: Norm al < 5.7 % Prediabetic 5.7 - 6.4 % Diabetic >or= 6.5 % Please note range changes. Performed By: #### B TS, L3890.6301, L509.4006, L100.0100, L3400.1990, L501.9985, L3400.1980, L509.8002, L3890.6006, L3890.6102 #### [facility] [address] [place], [address] Hemoglobin A1c percentageOrd ered By: Mary Monse on 03-13-2025 HbA1c (Bld) [Mass fraction] 4.8 % <5.7 [facility] Comment on above: Normal < 5.7 % Predi abetic 5.7 - 6.4 % Diabetic >or= 6.5 % Please note range changes. Hemoglobin measurementOrdere d By: Marycoy Shea on 03-13-2025 Hemoglobin (Bld) [Mass/Vol] 12.4 g/dL 12.0-15.0 [facility] Hepatitis C Antibodyon 03-13 Hepatitis C Ab Non-Reactive Normal Nonreactive [facility] Comment on above: Result Comment: Reac tive: Presumptive evidence of antibodies to HCV. Follow CDC recommendations for supplemental testing. Non-Reactive: Antibodies to HCV were not detected; does not exclude the possibility of exposure to HCV Reactive Results are presumptive evidence of antibodies to HCV. Follow CDC recommendations for supplemental testing. Order confirmation testing: HCV Quant by PCR testing - HCVPCR #[id number] Non Reactive: < 0.8 Equivocal: >/= 0.8 to < 1.0 Reactive: >/= 1.0 The CDC requires that a reactive/equivocal HCV antibody result be sent out for confirmation. HCV Quant by PCR testing. Performed By: #### L 505.5000, M100.2200, L7000.1800, L7400.0280 #### [facility] [address] [place], [place], [id number] Immature granulocytes/100 WB C Auto (Bld)Ordered By: Mary Shea on 03-13-2025 Immature granulocytes/100 WBC (Bld) 0.500 % 0.0-0.9 [facility] Comment on above: IG% - Immature Granu locytes (promyelocytes, myelocytes and metamyelocytes) > 1% indicates that a LEFT SHIFT is Present. L3890.6102on 03-13-2025 HEP B Surf Ag Non-Reactive Normal Nonreactive [facility] Comment on above: Result Comment: Reac tive: Presumptive evidence of HBV. Repeatedly reactive samples must be confirmed using a neutralization test ([employer] HBsAg Confirmatory Test) Non-Reactive: HBsAg not detected; does not exclude the possibility of exposure to HBV Performed By: #### L 505.5000, M100.2200, L7000.1800, L7400.0280 #### [facility] [address] [place], [address] L509.4006on 03-13-2025 Rubella IgG Non-Reactive Normal Nonreactive [facility] Comment on above: Result Comment: Anti body Result: Interpretation Non-Reactive: Non-Immune Reactive: Immune The following results were obtained with the [employer] Rubella IgG assay. Results from assays of other manufacturers cannot be used interchangeably. Performed By: #### L 505.5000, M100.2200, L7000.1800, L7400.0280 #### [facility] [address] [place], [place], [id number] Laboratory - Chemistry and C hemistry - challengeOrdered By: Angy Kahn on 03-13-2025 Glucose Ql (U) Negative [facility] Laboratory - Microbiology an d Antimicrobial susceptibilityOrdered By: Mary Shea on 03-13-2025 HBV surface Ag Ql (S) Non-Reactive Nonreactive [facility] Comment on above: Reactive: Presumptiv e evidence of HBV. Repeatedly reactive samples must be confirmed using a neutralization test ([employer] HBsAg Confirmatory Test)Non-Reactive: HBsAg not detected; does not exclude the possibility of exposure to HBV Laboratory - UrinalysisOrder ed By: Angy Kahn on 03-13-2025 Protein Ql (U) Negative [facility] MCV (mean corpuscular volume ) determinationOrdered By: Mary Shea on 03-13-2025 MCV (RBC) [Entitic vol] 90.5 fL 81-99 [facility] Mean corpuscular hemoglobin (MCH) determinationOrdered By: Mary Shea on 03-13-2025 MCH (RBC) [Entitic mass] 31.1 pg 27.0-32.0 [facility] Mean corpuscular hemoglobin concentration (MCHC) determinationOrdered By: Mary Shea on 03-13-2025 MCHC (RBC) [Mass/Vol] 34.3 g/dL 32-36 [facility] Mean platelet volume determi nationOrdered By: Mary Shea on 03-13-2025 Platelet mean volume (Bld) [Entitic vol] 8.9 fL 6.2-12.0 [facility] Monocyte percentageOrdered B y: Mary Shea on 03-13-2025 Monocytes/100 WBC (Bld) 7.5 % 0-10 [facility] Neutrophil percentageOrdered By: Mary Shea on 03-13-2025 Neutrophils/100 WBC (Bld) 71.9 % High 47-70 [facility] No Panel InformationOrdered By: Mary Shea on 03-13-2025 HIV (1&2) Antibody Non-Reactive Nonreactive [facility] Comment on above: Non-ReactiveReactive Repeatedly reactive samples must be confirmed according to CDC recommended confirmatory algorithms. The subresults for either HIVAG or AHIV can be used as an aid in the selection of the confirmation algorithm for reactive samples.Send out specimens with Reactive results to [facility] for confirmation.Order the HIV antibody detection and differentiation: #[id number] Toxoplasma Comment Comment . [facility] Comment on above: It is presumed the p atient has not been infected with andis not undergoing an acute infection with Toxoplasma. Ifsymptoms persist, submit a new specimen after three weeks.Performed at: [address] [id number] Director: Jorge Gregg PhD, Phone: [phone] Nucleated red blood cell per centageOrdered By: Mary Shea on 03-13-2025 Nucleated RBC/100 WBC (Bld) [Ratio] 0 % 0-5 [facility] Cigarette Filter Inspector Office Visit Reporton 03-13-2025 Cigarette Filter Inspector Office Visit Report [facility] [address], [address] [place] [address] OFFICE VISIT Date of Service: 03/13/25 MR#: [id number] Acct: [id number] Name: KEIRA AVILES Rep #: [id number] : 1990 Provider: CHARLES amador Age/Sex: 34/F Location: [facility] Status: Signed Intake Vital Signs 07/25/15 07:43 02/16/25 11:46 03/13/25 08:45 Height 5 ft 2 in 5 ft 1 in 5 ft 1 in Weight: 168 lb 6 oz BMI 31.8 BP 106/71 Intake Visit Reasons: 12wk ob Chief Complaint: 12 Week OB Gandy Dancer Required: No Is patient in pain?: No Allergies Latex, Natural Rubber Allergy (Mild, Verified 03/13/25 08:48) Rash Medications ???Medication ???Instructions ???Recorded ???Confirmed ???Type cholecalciferol (vitamin D3) 250 250 mcg PO QDAY 01/30/25 03/13/25 History mcg (10,000 unit) capsule inositol 2,000 mg-D chiro inositol ea PO 01/30/25 03/13/25 History 50 mg oral powder packet multivit-min no.71-iron fum 28 1 cap PO DAILY 01/30/25 03/13/25 H istory mg-folate no.1 1 mg-dha 300 mg capsule (PNV-[place]) fosfomycin tromethamine 3 gram 3 g PO ONCE #1 ea 02/19/25 5 Rx oral packet Last Menstrual Period: 12/14/24 Zika: Zika virus screening: Negative : Yes PFSH PFSH Medical History Seasonal allergies Surgical History [place] teeth extracted Family History Sister MTHFR gene mutation Half sister Spina bifida Mother MTHFR gene mutation Arthritis Hypertension Addiction to drug Grandmother Arthritis Maternal Alcoholism maternal Kidney disease, Onset Age: 32 kidney removed Grandfather Arthritis Maternal Diabetes Maternal Father Alcoholism Social History adopted: No household members: family housing: house current occupational status: employed 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 current occupational exposures/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 (RP spray, coolant) pets and animals: Yes (Avoid litter box) pets and animals: cat(s) and dog(s) history of recent travel: No sexually active: Yes Smoking Status: Never smoker alcohol intake: current alcohol intake frequency: 3 or more drinks per day Alcohol type: wine details: Not since finding out substance use type: former substance user and marijuana well-balanced diet: daily or most days caffeine: Yes Type: coffee Number of servings: 2 eating out: 1-3 times/week during the past year weight has: remained stable what type of physical activity do you participate in: none estefani/protestant: None seatbelt use: always do you feel safe at home: Yes additional social history: [employer] History 1 Elective abortions Hx Para 0 Spontaneous abortions Hx # Term Pregnancies Ectopic pregnancies Hx # Pregnancies Multiple births # of living children HPI 12wk ob Details: KEIRA AVILES is a 34 year old who presents for routine OB visit. OB Visit SANDY Calculator Estimated Delivery Date Method Current WG Current Estimate 09/28/25 Ultrasound #1 11w 4d Other Estimates 09/20/25 LMP (Certain) 12w 5d Expected Delivery Route/Plan Labor Preferences- CB/BF classes: [] labor support person: [] labor intervention preferences: [] pain management options preferred: [] cut cord/dad catch: [] : [] PP control planned: [] discussed possible routes of delivery and associated risks: [] special requests: [] Specific Issue/Plans Covid status: [] Flu vaccine: [] Tdap vaccine: [] Rhogam: [] LARC form signed: [] Problem list reviewed and updated with the most current plan of care details and appropriate orders placed. Relevant counseling for the gestational age provided. Continue routine care and follow up unless otherwise noted in visit notes/problem list details Initial Weight: Not Recorded Date -???-???-???-???-???-?? ?-???-???-???-???-???-? ??- EGA Weight BP Urine Prot -???-???-???-???-???-?? ?-???-???-???-???-???-? ??- Glucose FHR FuHt Pres Dilation -???-???-???-???-???-?? ?-???-???-???-???-???-? ??- Effaced St Visit Note 02/16/25 -???-???-???-???-???-?? ?-???-???-???-???-???-? ??- 8w 0d 170 lb 8 oz 109/68 -???-???-???-???-???-?? ?-???-???-???-???-???-? ??- 166 -???-???-???-???-???-?? ?-???-???-???-???-???-? ??- 03/13/25 -???-???-???-???-???-?? ?-???-???-???-???-???-? ??- 11w 4d 168 lb 6 oz 106/71 Negative -???-???-???-???-???-?? ?-???-???-???-???-???-? ??- Negative 168 -???-???-???-???-???-?? ?-???-???-???-???-???-? ??- MH-No VB. Na usea improved. Br US confirm FHT. Discussed (more content not included)... Normal [facility] Platelet countOrdered By: Yadiel Shea on 03-13-2025 Platelets (Bld) [#/Vol] 318 10*3/uL 150-450 [facility] RBC Auto (Bld) [#/Vol]Ordere d By: Mary Monse on 03-13-2025 RBC (Bld) [#/Vol] 3.99 10*6/uL Low 4.2-5.4 [facility] Serum Toxoplasma gondii IgG antibody assay (units/volume)Ordered By: Mary Monse on 03-13-2025 T. gondii IgG Qn (S) < 3.0 IU/mL 0.0-7.1 [facility] Comment on above: Negative <7.2 Equivo danis 7.2 - 8.7 Positive >8.7 Serum Toxoplasma gondii IgM antibody assay by immunoassay (units/volume)Ordered By: Mary Monse on 03-13-2025 T. gondii IgM IA Qn (S) < 3.0 AU/mL 0.0-7.9 [facility] Comment on above: Negative <8.0 Equivo danis 8.0 - 9.9 Positive >9.9 Syphilis Antibodieson 2024 Syphilis Abs Non-Reactive Normal Nonreactive [facility] Comment on above: Performed By: #### B TS, L3890.6301, L509.4006, L100.0100, L3400.1989, L501.9985, L3400.1980, L509.8002, L3890.6006, L3890.6102 #### [facility] [address] [place], [place], [id number] Type AND Screenon 03-13-2025 Ab SCREEN GEL Negative Normal [facility] Comment on above: Order Comment: PN Performed By: #### B TS, L3890.6301, L509.4006, L100.0100, L3400.1989, L501.9985, L3400.1980, L509.8002, L3890.6006, L3890.6102 #### [facility] [address] [place], [address] White blood cell (WBC) count Ordered By: Mary Shea on 03-13-2025 WBC (Bld) [#/Vol] 12.3 10*3/uL High 4.4-11.0 [facility] Urine cultureOrdered By: Mahamed Kahn on 03-05-2025 Bacteria identified Cx Nom (U) Myroides spp Abnormal [facility] PAP IG HPV APTIMA 16/18,45on 02-20-2025 ADEQ Comment Normal . [facility] Comment on above: Order Comment: Speci men Comment: [id number] Specimen Comment: Source.............Cervix Specimen Comment: LMP / Prev Treat...[id number] Specimen Comment: No. of containers..01 ThinPrep Vial Result Comment: Sati sfactory for evaluation. Endocervical and/or squamous metaplastic cells (endocervical component) are present. Performed By: #### L 505.5000, M100.2200, L7000.1800, L7400.0280 #### [facility] [address] [place], [address] COMM . Normal . [facility] Comment on above: Order Comment: Speci men Comment: [id number] Specimen Comment: Source.............Cervix Specimen Comment: LMP / Prev Treat...[id number] Specimen Comment: No. of containers..01 ThinPrep Vial Performed By: #### L 505.5000, M100.2200, L7000.1800, L7400.0280 #### [facility] [address] [place], [address] COMMENT Comment Normal . [facility] Comment on above: Order Comment: Speci men Comment: [id number] Specimen Comment: Source.............Cervix Specimen Comment: LMP / Prev Treat...[id number] Specimen Comment: No. of containers..01 ThinPrep Vial Result Comment: This liquid based ThinPrep(R) pap test was screened with the use of an image guided system. Performed By: #### L 505.5000, M100.2200, L7000.1800, L7400.0280 #### [facility] [address] [place], [address] DIAG Comment Normal . [facility] Comment on above: Order Comment: Speci men Comment: [id number] Specimen Comment: Source.............Cervix Specimen Comment: LMP / Prev Treat...[id number] Specimen Comment: No. of containers..01 ThinPrep Vial Result Comment: NEGA TIVE FOR INTRAEPITHELIAL LESION OR MALIGNANCY. Performed By: #### L 505.5000, M100.2200, L7000.1800, L7400.0280 #### [facility] [address] [place], [address] HPV APTIMA, HR Negative Normal Negative [facility] Comment on above: Order Comment: Speci men Comment: [id number] Specimen Comment: Source.............Cervix Specimen Comment: LMP / Prev Treat...[id number] Specimen Comment: No. of containers..01 ThinPrep Vial Result Comment: This nucleic acid amplification test detects fourteen high- risk HPV types (16,18,31,33,35,39,45,51,52,56,58,59,66,68) without differentiation. Performed By: #### L 505.5000, M100.2200, L7000.1800, L7400.0280 #### [facility] [address] [place], [address] HPV Julia Rfx Comment Normal . [facility] Comment on above: Order Comment: Speci men Comment: [id number] Specimen Comment: Source.............Cervix Specimen Comment: LMP / Prev Treat...[id number] Specimen Comment: No. of containers..01 ThinPrep Vial Result Comment: Shara camargo not met, HPV Genotype not performed. Performed at: - [facility] [id number] Indoor Landscape Architect: Lauren Mann MD, Phone: [phone] Performed at: =G - [facility] [address] [id number] Indoor Landscape Architect: Lauren Mann MD, Phone: [phone] Performed By: #### L 505.5000, M100.2200, L7000.1800, L7400.0280 #### [facility] [address] [place], [address] PAPSMR Comment Normal . [facility] Comment on above: Order Comment: Speci men Comment: [id number] Specimen Comment: Source.............Cervix Specimen Comment: LMP / Prev Treat...[id number] Specimen Comment: No. of containers..01 ThinPrep Vial Result Comment: The Pap smear is a screening test designed to aid in the detection of premalignant and malignant conditions of the uterine cervix. It is not a diagnostic procedure and should not be used as the sole means of detecting cervical cancer. Both false-positive and false-negative reports do occur. Performed By: #### L 505.5000, M100.2200, L7000.1800, L7400.0280 #### [facility] [address] [place], [address] PERFORM Comment Normal . [facility] Comment on above: Order Comment: Speci men Comment: [id number] Specimen Comment: Source.............Cervix Specimen Comment: LMP / Prev Treat...[id number] Specimen Comment: No. of containers..01 ThinPrep Vial Result Comment: Denae Monk, Hydroelectric Station Chief (ASCP) Performed By: #### L 505.5000, M100.2200, L7000.1800, L7400.0280 #### [facility] [address] [place], [address] Chlamydia/GC TUTU aptimaon CHLAMY,NUC ACID Negative Normal Negative [facility] Comment on above: Performed By: #### L 505.5000, M100.2200, L7000.1800, L7400.0280 #### [facility] [address] [place], [address] GC BY NUC ACID Negative Normal Negative [facility] Comment on above: Result Comment: Perf ormed at: =G - [facility] [address] [id number] Indoor Landscape Architect: Lauren Mann MD, Phone: [phone] Performed By: #### L 505.5000, M100.2200, L7000.1800, L7400.0280 #### [facility] [address] [place], [place], [address] Urine Cultureon 02-19-2025 [facility] Urine Culture Urine Culture Myroides spp [place] Count 50,000-80,000 Mixed Gram Positive Organisms Mixed Gram Positive Organisms MIXC Mixed contaminants. Submit a new specimen if indicated. * This is an amended result. * A prior result that was reported as final has been changed. 02/19/25 1520 by ELLA Erazo spp: REACTION levoFLOXacin Islt RUDY <=0.12 S Meropenem Islt RUDY <=0.25 S Pip+Tazo Islt RUDY <=4 TMP SMX Islt RUDY 40 S Normal [facility] Comment on above: Performed By: #### L 505.5000, M100.2200, L7000.1800, L7400.0280 #### [facility] [place], [address] Amphetamine detection with 1 000 ng/mL as cutoffOrdered By: Mary Shea on 02-16-2025 Amphetamines Screen method >1000 ng/mL Ql (U) Negative < 200 ng/mL [facility] Cervical or vaginal specimen microscopic examination by liquid based cytology (reportOrdered By: Mary Shea on 02-16-2025 Cytology report Cyto stain.thin prep Doc (Cvx/Vag) Comment . [facility] Comment on above: Criteria not met, HP V Genotype not performed.Performed at: - [facility] [id number] Director: Lauren Mann MD, Phone: [phone] at: =[facility] [id number] Director: Lauren Mann MD, Phone: [phone] Cervical or vagninal specime n microscopic examination by cytology stain (reported asOrdered By: Mary Shea on 02-16-2025 Cytology report Cyto stain Doc (Cvx/Vag) Comment . [facility] Comment on above: The Pap smear is a s creening test designed to aid in thedetection of premalignant and malignant conditions of theuterine cervix. It is not a diagnostic procedure andshould not be used as the sole means of detecting cervicalcancer. Both false-positive and false-negative reports dooccur. Chlamydia trachomatis rRNA d etection by probe and target amplification methodOrdered By: Mary Shea on 02-16-2025 C. trachomatis rRNA TUTU+probe Ql (Unsp spec) Negative Negative [facility] Detection in cervical specim en of any of human papilloma virus (HPV) 16, 18, 31, 33,Ordered By: Mary Shea on 02-16-2025 HPV 16+18+31+33+35+39+45+51 +52+56+58+59+66+68 DNA Probe+sig amp Ql (Cvx) Negative Negative [facility] Comment on above: This nucleic acid am plification test detects fourteen high-risk HPV types (16,18,31,33,35,39,45,51,52,56,58,59,66,68)without differentiation. Laboratory - CytologyOrdered By: Mary Shea on 02-16-2025 Hydroelectric Station Chief Cyto stain Nom (Cvx/Vag) [ID] Comment . [facility] Comment on above: Denae Monk, Cyto logist (ASCP) Laboratory - Miscellaneous t estsOrdered By: Mary Shea on 02-16-2025 Service comment (Unsp spec) [Interp] . . [facility] Neisseria gonorrhoeae nuclei c acid detection by amplified probe techniqueOrdered By: Mary Shea on 02-16-2025 N. gonorrhoeae DNA TUTU+probe Ql (Unsp spec) Negative Negative [facility] Comment on above: Performed at: =[address] [id number] Director: Lauren Mann MD, Phone: [phone] No Panel InformationOrdered By: Mary Shea on 02-16-2025 Pap Smear Specimen Adequacy Comment . [facility] Comment on above: Satisfactory for paolo luation. Endocervical and/or squamous metaplasticcells (endocervical component) are present. Urine Buprenorphine Qualitative Negative < 200 ng/mL [facility] Urine Oxycodone Screen Negative < 100 ng/mL [facility] Cigarette Filter Inspector Office Visit Reporton 02-16-2025 Cigarette Filter Inspector Office Visit Report [facility] [address], [address] [place] [address] OFFICE VISIT Date of Service: 02/16/25 MR#: [id number] Acct: [id number] Name: KEIRA AVILES Rep #: [id number] : 1990 Provider: Dr. Mary Roberson, Age/Sex: 34/F Location[place] [facility] [place] [facility] [place] Status: Signed Intake Vital Signs 07/25/15 07:43 01/30/25 10:13 02/16/25 11:43 02/16/25 11:46 Height 5 ft 2 in 5 ft 1 in 5 ft 1 in 5 ft 1 in Weight: 163 lb 6 oz 170 lb 8 oz BMI 30.9 32.2 BP 116/64 109/68 Intake Visit Reasons: New OB, LMP 12/14, SANDY 09/20/25 Gandy Dancer Required: No Is patient in pain?: No Allergies Latex, Natural Rubber Allergy (Mild, Verified 02/16/25 11:41) Rash Medications ???Medication ???Instructions ???Recorded ???Confirmed ???Type cholecalciferol (vitamin D3) 250 250 mcg PO QDAY 01/30/25 02/16/25 History mcg (10,000 unit) capsule inositol 2,000 mg-D chiro inositol ea PO 01/30/25 02/16/25 History 50 mg oral powder packet multivit-min no.71-iron fum 28 1 cap PO DAILY 01/30/25 02/16/25 H istory mg-folate no.1 1 mg-dha 300 mg capsule ([facility]-[place]) Last Menstrual Period: 12/14/24 Zika: Zika virus screening: Negative : Yes PFSH PFSH Medical History Seasonal allergies Surgical History [place] teeth extracted Family History Sister MTHFR gene mutation Half sister Spina bifida Mother MTHFR gene mutation Arthritis Hypertension Addiction to drug Grandmother Arthritis Maternal Alcoholism maternal Kidney disease, Onset Age: 32 kidney removed Grandfather Arthritis Maternal Diabetes Maternal Father Alcoholism Social History adopted: No household members: family housing: house current occupational status: employed 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, coolant) pets and animals: Yes (Avoid litter box) pets and animals: cat(s) and dog(s) history of recent travel: No sexually active: Yes Smoking Status: Never smoker alcohol intake: current alcohol intake frequency: 3 or more drinks per day Alcohol type: wine details: Not since finding out substance use type: former substance user and marijuana well-balanced diet: daily or most days caffeine: Yes Type: coffee Number of servings: 2 eating out: 1-3 times/week during the past year weight has: remained stable what type of physical activity do you participate in: none estefani/protestant: None seatbelt use: always do you feel safe at home: Yes additional social history: BF-[employer]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 OB Visit SANDY Calculator Estimated Delivery Date Method Current WG Current Estimate 09/28/25 Ultrasound #1 8w 0d Other Estimates 09/20/25 LMP (Certain) 9w 1d Comments: HIV: Urine Culture: Sequential Screen: NIPT Screen: Estimated Due Date: 09/20/25 Expected Delivery Route/Plan Labor Preferences- CB/BF classes: [] labor support person: [] labor intervention preferences: [] pain management options preferred: [] cut cord/dad catch: [] : [] PP control planned: [] discussed possible routes of delivery and associated risks: [] special requests: [] Specific Issue/Plans Covid status: [] Flu vaccine: [] Tdap vaccine: [] Rhogam: [] LARC form signed: [] Problem list reviewed and updated with the most current plan of care details and appropriate orders placed. Relevant counseling for the gestational age provided. Continue routine care and follow up unless otherwise noted in visit notes/problem list details Initial Weight: Not Recorded Date -???-???-???-???-???-?? ?-???-???-???-???-???-? ??- EGA Weight BP Urine Prot -???-???-???-???-???-?? ?-???-???-???-???-???-? ??- Glucose FHR FuHt Pres Dilation -???-???-???-???-???-?? ?-???-???-???-???-???-? ??- Effaced St Visit Note 02/16/25 -???-???-???-???-???-?? ?-???-???-???-???-???-? ??- 8w 0d 170 lb 8 oz 109/68 -???-???-???-???-???-?? ?-???-???-???-???-???-? ??- 166 -???-???-???-???-???-?? ?-???-???-???-???-???-? ??- Menstrual History Last Menstrual Period: 12/14/24 Reported LMP: definite Normal amount/duration: No (Very light, 2 days mostly spotting) Frequency in days: 28 On hormonal BC at conception: No (more content not included)... Normal [facility] Quantitative urine opiates m easurementOrdered By: Mary Shea on 02-16-2025 Opiates Ql (U) Negative < 300 ng/mL [facility] Screening urine fentanyl naresh surementOrdered By: Mary Shea on 02-16-2025 fentaNYL Screen Ql (U) Negative [facility] Urine Drug Screen (VISTA)on 02-16-2025 AMPHETAMINES Negative Normal <1000 ng/mL [facility] Comment on above: Order Comment: UNK Performed By: #### L 505.5000, M100.2200, L7000.1800, L7400.0280 #### [facility] [address] [place], [place], [id number] BARBITIURATES Negative Normal < 200 ng/mL [facility] Comment on above: Order Comment: UNK Performed By: #### L 505.5000, M100.2200, L7000.1800, L7400.0280 #### [facility] [address] [place], [address] BENZODIAZIPINE Negative Normal < 200 ng/mL [facility] Comment on above: Order Comment: UNK Performed By: #### L 505.5000, M100.2200, L7000.1800, L7400.0280 #### [facility] [address] [place], [address] BUP Ur Drug Scr Negative Normal < 200 ng/mL [facility] Comment on above: Order Comment: UNK Performed By: #### L 505.5000, M100.2200, L7000.1800, L7400.0280 #### [facility] [address] [place], [address] COCAINE Negative Normal < 300 ng/mL [facility] Comment on above: Order Comment: UNK Performed By: #### L 505.5000, M100.2200, L7000.1800, L7400.0280 #### [facility] [address] [place], [address] Fentanyl Negative Normal [facility] Comment on above: Order Comment: UNK Performed By: #### L 505.5000, M100.2200, L7000.1800, L7400.0280 #### [facility] [address] [place], [address] METHADONE Negative Normal < 300 ng/mL [facility] Comment on above: Order Comment: UNK Performed By: #### L 505.5000, M100.2200, L7000.1800, L7400.0280 #### [facility] [address] [place], [address] OPIATES Negative Normal < 300 ng/mL [facility] Comment on above: Order Comment: UNK Performed By: #### L 505.5000, M100.2200, L7000.1800, L7400.0280 #### [facility] [address] [place], [address] OXYCODONE Negative Normal < 100 ng/mL [facility] Comment on above: Order Comment: UNK Performed By: #### L 505.5000, M100.2200, L7000.1800, L7400.0280 #### [facility] [address] [place], [address] PCP Negative Normal < 25 ng/mL [facility] Comment on above: Order Comment: UNK Performed By: #### L 505.5000, M100.2200, L7000.1800, L7400.0280 #### [facility] [address] [place], [address] THC Negative Normal < 50 ng/mL [facility] Comment on above: Order Comment: UNK Performed By: #### L 505.5000, M100.2200, L7000.1800, L7400.0280 #### [facility] [address] [place], [address] Urine benzodiazepine levelOr dered By: Mary Shea on 02-16-2025 Benzodiazepines Ql (U) Negative < 200 ng/mL [facility] Urine cocaine levelOrdered B y: Mary Shea on 02-16-2025 Cocaine Ql (U) Negative < 300 ng/mL [facility] Urine cultureOrdered By: Lizbeth Shea on 02-16-2025 Bacteria identified Cx Nom (U) Myroides spp Abnormal [facility] Bacteria identified Cx Nom (U) Positive Abnormal [facility] Urine ulflh-4-nvjdaweeeztsfe abinol (THC) measurementOrdered By: Mary Shea on 02-16-2025 Cannabinoids Screen Ql (U) Negative < 50 ng/mL [facility] Urine phencyclidine (PCP) de tectionOrdered By: Mary Shea on 02-16-2025 Phencyclidine Ql (U) Negative < 25 ng/mL [facility] Serum human chorionic gonado tropin detection for pregnancyOrdered By: Mary Shea on 02-03-2025 HCG ( test) Ql 19641 mIU/mL High <9 [facility] Comment on above: Gestational Age0.2-1 Week: 5-50 mIU/mL1-2 Weeks: 50-500 mIU/mL2-3 Weeks: 100-5000 mIU/mL3-4 Weeks: 500-10,000 mIU/mL4-5 Weeks:1000-50,000 mIU/mL5-6 Weeks: 10,000-100,000 mIU/mL6-8 Weeks: 15,000-200,000 mIU/mL2-3 Months:10,000-100,000 mIU/mL hCG Titer Quant., Serumon HCG QUANT. 56941 mIU/mL High <9 [facility] Comment on above: Result Comment: Gest ational Age 0.2-1 Week: 5-50 mIU/mL 1-2 Weeks: 50-500 mIU/mL 2-3 Weeks: 100-5000 mIU/mL 3-4 Weeks: 500-10,000 mIU/mL 4-5 Weeks:1000-50,000 mIU/mL 5-6 Weeks: 10,000-100,000 mIU/mL 6-8 Weeks: 15,000-200,000 mIU/mL 2-3 Months:10,000-100,000 mIU/mL Performed By: #### L 505.5000, M100.2200, L7000.1800, L7400.0280 #### [facility] [address] [place], [id number] Serum human chorionic gonado tropin detection for pregnancyOrdered By: Mary Shea on 02-01-2025 HCG ( test) Ql 9010 mIU/mL High <9 [facility] Comment on above: Gestational Age0.2-1 Week: 5-50 mIU/mL1-2 Weeks: 50-500 mIU/mL2-3 Weeks: 100-5000 mIU/mL3-4 Weeks: 500-10,000 mIU/mL4-5 Weeks:1000-50,000 mIU/mL5-6 Weeks: 10,000-100,000 mIU/mL6-8 Weeks: 15,000-200,000 mIU/mL2-3 Months:10,000-100,000 mIU/mL hCG Titer Quant., Serumon HCG QUANT. 9010 mIU/mL High <9 non-preg [facility] Comment on above: Result Comment: Gest ational Age 0.2-1 Week: 5-50 mIU/mL 1-2 Weeks: 50-500 mIU/mL 2-3 Weeks: 100-5000 mIU/mL 3-4 Weeks: 500-10,000 mIU/mL 4-5 Weeks:1000-50,000 mIU/mL 5-6 Weeks: 10,000-100,000 mIU/mL 6-8 Weeks: 15,000-200,000 mIU/mL 2-3 Months:10,000-100,000 mIU/mL Performed By: #### L 700.8000 #### [facility] [address] [place], [address] Laboratory - Chemistry and C hemistry - challengeOrdered By: Mary Shea on 01-30-2025 HCG ( test) Ql (U) Positive [facility] Office Visit Reporton 2024 Office Visit Report [facility] [address] [place] [address] OFFICE VISIT Date of Service: 02/16/25 MR#: [id number] Acct: [id number] Patient: KEIRA AVILES Rep #: [id number] : 1990 Provider: Dr. Mary Roberson DO Age/Sex: 34/F [place] [facility] [place] [facility] [place] Status: Signed Intake Vital Signs 07/25/15 07:43 01/30/25 10:13 Height 5 ft 2 in 5 ft 1 in Weight: 163 lb 6 oz BMI 30.9 BP 116/64 Intake Visit Reasons: New OB, LMP 12/14, SANDY 09/20/25, PNOB, Confirmation of Gandy Dancer Required: No Accompanied by: Significant Other Is patient in pain?: No Allergies Latex, Natural Rubber Allergy (Mild, Verified 01/30/25 10:14) Rash Medications ???Medication ???Instructions ???Recorded ???Confirmed ???Type cholecalciferol (vitamin D3) 250 250 mcg PO QDAY 01/30/25 01/30/25 History mcg (10,000 unit) capsule inositol 2,000 mg-D chiro inositol ea PO 01/30/25 01/30/25 History 50 mg oral powder packet multivit-min no.71-iron fum 28 1 cap PO DAILY 01/30/25 01/30/25 H istory mg-folate no.1 1 mg-dha 300 mg capsule ([facility]-[place]) Is last menstrual period known: Yes Last menstrual period: 12/14/24 Post menopausal: No Patient : Yes Current gender identity: female Nurse's Note: Pt here for secondary amenorrhea PNOB. Office UPT: positive. Vitals WNL. PNOB questions completed. Problem list, allergies, and medications updated. Nursing Note patient presents for nurse visit due to Amenorrhea and test Assessment and Plan Assessment and Plan (1) Secondary amenorrhea: Status: Acute Comment: + UPT Orders: Orders POC Urine 01/30/25 N91.1 - Secondary amenorrhea CBC W/Diff, Automated 01/30/25 O09.90 - Supervision of high risk , unspecified, unspecified trimester, T75.89XA - Other specified effects of external causes, initial encounter Type Screen 01/30/25 O09.90 - Supervision of high risk , unspecified, unspecified trimester, T75.89XA - Other specified effects of external causes, initial encounter Rubella IgG 01/30/25 O09.90 - Supervision of high risk , unspecified, unspecified trimester, T75.89XA - Other specified effects of external causes, initial encounter Hepatitis C Antibody 01/30/25 O09.90 - Supervision of high risk , unspecified, unspecified trimester, T75.89XA - Other specified effects of external causes, initial encounter Hepatitis B Surface Antigen 01/30/25 O09.90 - Supervision of high risk , unspecified, unspecified trimester, T75.89XA - Other specified effects of external causes, initial encounter Culture, Urine 01/30/25 O09.90 - Supervision of high risk , unspecified, unspecified trimester, T75.89XA - Other specified effects of external causes, initial encounter Syphilis Antibodies 01/30/25 O09.90 - Supervision of high risk , unspecified, unspecified trimester, T75.89XA - Other specified effects of external causes, initial encounter Chlamydia/GC TUTU aptima 01/30/25 O09.90 - Supervision of high risk , unspecified, unspecified trimester, T75.89XA - Other specified effects of external causes, initial encounter HIV 01/30/25 O09.90 - Supervision of high risk , unspecified, unspecified trimester, T75.89XA - Other specified effects of external causes, initial encounter Hemoglobin A1c 01/30/25 E28.2 - Polycystic ovarian syndrome, O09.90 - Supervision of high risk , unspecified, unspecified trimester, O99.210 - Obesity complicating , unspecified trimester, T75.89XA - Other specified effects of external causes, initial encounter PAP IG HPV APTIMA 16/18,45 01/30/25 O09.90 - Supervision of high risk , unspecified, unspecified trimester, Z12.4 - Encounter for screening for malignant neoplasm of cervix Urine Drug Screen 01/30/25 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, in remission, O09.90 - Supervision of high risk , unspecified, unspecified trimester, T75.89XA - Other specified effects of external causes, initial encounter 02/05/251949 Date Mary Mckeon Signature: Date (if applicable) [facility] [place] [facility] (FAMPWS ) KEIRA AVILES ([id number]) 1990 F Date Time Provider Department 04/04/19 9:00 AM VIOLETA PHILLIP FAMPWS During your visit today, we recorded the following information about you: Temperature Pulse Respiration Blood pressure 100 degrees 86/minute 16/minute 102/72 Weight Height Last Period 75.3 kg 1.562 m 03/22/19 Violeta Phillip, MSN CANNED FOOD RECONDITIONING INSPECTOR.ROAD CROSSING GUARD 04/04/2019 11:04 AM Addendum Reason for Visit Patient presents with: Physical Keira Aviles is a 29 year old female who presents here today for routine physical. New concerns: ongoing anxiety. H/o longstanding anxiety, sx: panic-rare, over thinking, dwelling. Denies self harm behaviors, denies SI/HI thoughts. Counseling in the past and intends to resume. Paxil and Lorazepam in the past. Feels Lorazepam effectiveness wore off. Work is physically active, work a lot of hours. Getting ready to resume regular exercise at the gym. Diet is balanced, starting to pack lunch and limiting sugared snacks. Follows with [facility] [place] for FORENSIC CHEMIST care, appointment in November. Health Maintenance PAP TESTING Lab/Diagnostic Studies Completed: No No problem-specific Assessment AND Plan notes found for this encounter. PAST MEDICAL HISTORY Diagnosis Date - ADHD (attention deficit hyperactivity disorder) - Anxiety disorder - Hypoglycemia - Insomnia - PCOS (polycystic ovarian syndrome) PAST SURGICAL HISTORY Procedure Laterality Date - NONE FAMILY HISTORY Problem Relation Age of Onset - Diabetes Maternal Grandfather - other (gall bladder) Mother - other (Other) Brother clef lip an palate - other (ETOH) Maternal Grandmother Social History Tobacco Use - Smoking status: Never Smoker - Smokeless tobacco: Never Used Substance Use Topics - Alcohol use: Yes Comment: occasional - Drug use: No Past medical history, appointments, medications, allergies reviewed. Pertinent lab and diagnostic studies reviewed today. Current Outpatient Medications: - inulin/cholecalciferol, D3, (FIBER GUMMIES WITH VITAMIN D3 ORAL) - cranberry fruit extract (CRANBERRY ORAL) - COMPOUNDED PRESCRIPTION - PNV no.95/ferrous fum/folic ac ( ORAL) - inositol-D chiro inositol (OVASITOL) 2,000-50 mg pwpk - cholecalciferol, Vitamin D3, (VITAMIN D3) 50,000 unit cap capsule - PARoxetine (PAXIL) 10 mg tablet Review of Systems CONSTITUTIONAL: No fevers, chills, nightsweats, unintended weight loss HEENT: Denies frequent or severe heaches, nasal congestion/sinus symptoms, problematic allergy problems. EYES: No diplopia or blurry vision. CARDIOVASCULAR: No chest pain, dyspnea, palpitations, orthopnea, PND, ankle edema. PULM: No dyspnea, unexplained cough. GI: No dysphagia/odynophagia, problematic reflux, constipation, diarrhea, changes in stool habits, hematochezia, melena. : No new urinary complaints, including dysuria, gross hematuria or pyuria. NEURO: No new balance problems, peripheral weakness/paresthesias or numbness of concern. MUSC-SKEL: No new joint pain, swelling, or erythema. PSY: No concerns regarding depression, Positive: anxiety. INTEGUMENTARY: No new skin changes (rash, new or changing mole, new growth) Physical Exam BP 102/72 Pulse 86 Temp 37.8 ?C (100 ?F) Resp 16 Ht 156.2 cm (5' 1.5) Wt 75.3 kg (166 lb) LMP 03/22/2019 BMI 30.86 kg/m? General appearance: Well appearing, alert, in no acute distress, well nourished. Skin: Skin color, texture, turgor normal, no suspicious rashes or lesions Head: Normocephalic, no masses, lesions, tenderness or abnormalities Eyes: Anicteric sclera. Pupils are equally round and reactive to light. Extraocular movements are intact. Ears: R TM - clear with good landmarks, nl light reflex, L TM - clear with good landmarks, nl light reflex Nose/Sinuses: Nares normal, septum midline, mucosa normal, no drainage or sinus tenderness Oropharynx: Lips, mucosa, and tongue normal, oropharynx normal Neck: Supple, no adenopathy; thyroid symmetric, normal size, no bruits Lungs: Lungs clear to auscultation. No wheezing, rhonchi, rales Heart: RRR without murmur, gallop, or rubs. Abdomen: Normal abdominal exam, Abdomen soft, non-tender. Bowel sounds normal. No masses, organomegaly Extremities: No deformities, edema, skin discoloration, clubbing or cyanosis. Good capillary refill. Neuro: Gait normal. Reflexes normal and symmetric. Sensation grossly intact. Feeling nervous, anxious, or on edge 2 Over half the days Not being able to stop or control worrying 2 Over half the days Worrying too much about different things 3 Nearly every day Trouble relaxing 2 Over half the days Being so restless that it's hard to sit still 1 Several days Being easily annoyed or irritable 1 Several days Feeling afraid as if something awful might happen 1 Several days PORFIRIO-7 Anxiety Score 12 If you checked off any problems, how difficult have these problems made it for you to do your work, take care of things at home, or get along with other people? Somewhat difficult ASSESSMENT/PLAN: 1. Encounter for well adult exam without abnormal findings - ICD9: V70.0, ICD10: Z00.00 (primary diagnosis) - Encouraged monthly Breast Self Exam - Recommended regular aerobic exercise. - Discussed need and benefit for weight loss. BMI 30.86 kg/(m2) - Follow up for annual exam in one year. Healthy diet focusing on low starchy vegetables, small portions of fresh fruit and lean cuts of meat 2. Anxiety - ICD9: 300.00, ICD10: F41.9 Discussed options of treatment including, daily controller medication such as Lexapro or Zoloft along with prn medication such as Zoloft. Patient opted to try prn med at this time, she is resuming counseling and exercise as well to help control her sx. -Instructed to follow up as needed if she changes her mind. 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 Violeta Phillip, MSN CANNED FOOD RECONDITIONING INSPECTOR.ROAD CROSSING GUARD 04/04/2019 9:43 AM Signed 1. Recommend Vitamin D 2000 IU daily 2. When you have your FORENSIC CHEMIST exam, if pap smear is done then please have copy sent to Dr. Bishop. Allergies As of Date: 04/04/2019 (No Known Allergies) Date Reviewed: 04/04/2019 Reviewed by: Beulah Ramos LPN - Fully Assessed Reason for Visit: Physical [83] Primary Visit Diagnosis:Encounter for well adult exam without abnormal findings [Z00.00] Other Visit Diagnosis:Anxiety [F41.9] Order(s):hydrOXYzine HCl (ATARAX) 25 mg tabletTake 1 tablet by mouth every 6 hours as needed for Itching/Rash or Anxiety.Disp: 30 tabletRfl: 1 Prescriptions as of 04/04/2019 Sig: FIBER GUMMIES WITH VITAMIN D3* Take by mouth once daily. CRANBERRY ORAL Take by mouth once daily. COMPOUNDED PRESCRIPTION once daily. Taking a hair, sk* ORAL Take by mouth once daily. INOSITOL 2,000 MG-D CHIRO VIOLETA* Take 1 Packet by mouth twice * HYDROXYZINE HCL 25 MG TABLET Take 1 tablet by mouth every * Problem List As Of Date 04/04/2019 Noted Resolved Vitamin D deficiency [E55.9] INVALID FOR* PCOS (polycystic ovarian syndrome) [E28.2] INVALID FOR* Anxiety [F41.9] INVALID FOR* Other instructions from your clinician: 1. Recommend Vitamin D 2000 IU daily 2. When you have your FORENSIC CHEMIST exam, if pap smear is done then please have copy sent to Dr. Bishop. Prescriptions ordered this encounter Disp Refills Start End HYDROXYZINE HCL 25 MG TABLET 30 t* 1 04/04/2019 Route: ORAL Sig: Take 1 tablet by mouth every 6 hours as needed for Itching/Rash or Anxiety. Medications Discontinued During This Encounter PARoxetine (PAXIL) 10 mg tablet 30 t* 5 01/24/2016 04/04/2019 Route: ORAL Sig: Take 1 tablet by mouth once daily. Disc: Discontinued by Patient cholecalciferol, Vitamin D3, (VITAMI* 12 c* 0 09/10/2016 04/04/2019 Route: ORAL Sig: Take 1 capsule by mouth once each week. (ONE CAPSULE) FOR VITAMIN D DEFICIENCY Disc: Course of therapy completed Disposition: Return in about 1 year (around 04/04/2020). Follow-up and Disposition History Recorded Questionnaire: PORFIRIO-7 ANXIETY SCALE Feeling nervous, anxious, or on edge -> 2 Over half the days Not being able to stop or control worrying -> 2 Over half the days Worrying too much about different things -> 3 Nearly every day Trouble relaxing -> 2 Over half the days Being so restless that it's hard to sit still -> 1 Several days Being easily annoyed or irritable -> 1 Several days Feeling afraid as if something awful might happen -> 1 Several days PORFIRIO-7 Anxiety Score -> 12 If you checked off any problems, how difficult have these problems made it for you to do your work, take care of things at home, or get along with other people? -> Somewhat difficult Encounter Status:Closed by VIOLETA PHILLIP ROAD CROSSING GUARD on 04/04/19 [facility] PROGRESSon 04-04-2019 PROGRESS HNO ID: [id number] Author: Violeta Phillip Service: ? Author Type: Nurse Practitioner Type: Progress Notes Filed: 04/04/2019 11:04 AM Note Text: Reason for Visit Patient presents with: Physical Keira Aviles is a 29 year old female who presents here today for routine physical. New concerns: ongoing anxiety. H/o longstanding anxiety, sx: panic-rare, over thinking, dwelling. Denies self harm behaviors, denies SI/HI thoughts. Counseling in the past and intends to resume. Paxil and Lorazepam in the past. Feels Lorazepam effectiveness wore off. Work is physically active, work a lot of hours. Getting ready to resume regular exercise at the gym. Diet is balanced, starting to pack lunch and limiting sugared snacks. Follows with [facility] [place] for FORENSIC CHEMIST care, appointment in November. Health Maintenance PAP TESTING Lab/Diagnostic Studies Completed: No No problem-specific Assessment AND Plan notes found for this encounter. PAST MEDICAL HISTORY Diagnosis Date - ADHD (attention deficit hyperactivity disorder) - Anxiety disorder - Hypoglycemia - Insomnia - PCOS (polycystic ovarian syndrome) PAST SURGICAL HISTORY Procedure Laterality Date - NONE FAMILY HISTORY Problem Relation Age of Onset - Diabetes Maternal Grandfather - other (gall bladder) Mother - other (Other) Brother clef lip an palate - other (ETOH) Maternal Grandmother Social History Tobacco Use - Smoking status: Never Smoker - Smokeless tobacco: Never Used Substance Use Topics - Alcohol use: Yes Comment: occasional - Drug use: No Past medical history, appointments, medications, allergies reviewed. Pertinent lab and diagnostic studies reviewed today. Current Outpatient Medications: - inulin/cholecalciferol, D3, (FIBER GUMMIES WITH VITAMIN D3 ORAL) - cranberry fruit extract (CRANBERRY ORAL) - COMPOUNDED PRESCRIPTION - PNV no.95/ferrous fum/folic ac ( ORAL) - inositol-D chiro inositol (OVASITOL) 2,000-50 mg pwpk - cholecalciferol, Vitamin D3, (VITAMIN D3) 50,000 unit cap capsule - PARoxetine (PAXIL) 10 mg tablet Review of Systems CONSTITUTIONAL: No fevers, chills, nightsweats, unintended weight loss HEENT: Denies frequent or severe heaches, nasal congestion/sinus symptoms, problematic allergy problems. EYES: No diplopia or blurry vision. CARDIOVASCULAR: No chest pain, dyspnea, palpitations, orthopnea, PND, ankle edema. PULM: No dyspnea, unexplained cough. GI: No dysphagia/odynophagia, problematic reflux, constipation, diarrhea, changes in stool habits, hematochezia, melena. : No new urinary complaints, including dysuria, gross hematuria or pyuria. NEURO: No new balance problems, peripheral weakness/paresthesias or numbness of concern. MUSC-SKEL: No new joint pain, swelling, or erythema. PSY: No concerns regarding depression, Positive: anxiety. INTEGUMENTARY: No new skin changes (rash, new or changing mole, new growth) Physical Exam BP 102/72 Pulse 86 Temp 37.8 ?C (100 ?F) Resp 16 Ht 156.2 cm (5' 1.5) Wt 75.3 kg (166 lb) LMP 03/22/2019 BMI 30.86 kg/m? General appearance: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 Inactive Member Role/Relationship Status Dates No Primary Care Physician Primary Care Provider Active Start: March 05, 2025 End: March 05, 2025 Angy Kahn DENTAL LABORATORY TECHNOLOGY TEACHER, DENTAL LABORATORY TECHNOLOGY TEACHER-C Attending Provider Active Start: March 05, 2025 End: March 05, 2025 Angy Kahn DENTAL LABORATORY TECHNOLOGY TEACHER, DENTAL LABORATORY TECHNOLOGY TEACHER-C Referring Provider Active Start: March 05, 2025 End: March 05, 2025 Team Status: Inactive Member Role/Relationship Status Dates No Primary Care Physician Primary Care Provider Active Start: March 13, 2025 End: March 13, 2025 No Primary Care Physician Referring Provider Active Start: March 13, 2025 End: March 13, 2025 Angy Kahn DENTAL LABORATORY TECHNOLOGY TEACHER, DENTAL LABORATORY TECHNOLOGY TEACHER-C Attending Provider Active Start: March 13, 2025 End: March 13, 2025 Team Status: Inactive Member Role/Relationship Status Dates No Primary Care Physician Primary Care Provider Active Start: March 13, 2025 End: March 13, 2025 Dr. Mary Baker DO Attending Provider Activ e Start: March 13, 2025 End: March 13, 2025 Team Status: Inactive Member Role/Relationship Status Dates No Primary Care Physician Primary Care Provider Active Start: April 09, 2025 End: April 09, 2025 No Primary Care Physician Referring Provider Active Start: April 09, 2025 End: April 09, 2025 Violeta Nair CNM Attending Provider Active S tart: April 09, 2025 End: April 09, 2025 Human Resources Designate Relationship Specialty Start Date End Date Aleah Molina DO [address] [place] [address] PCP - General 07/08/20 Team Status: Inactive Member Role/Relationship Status Dates No Primary Care Physician Primary Care Provider Active Start: May 10, 2025 End: May 10, 2025 No Primary Care Physician Referring Provider Active Start: May 10, 2025 End: May 10, 2025 Dr. Amira Alvarado MD Attending Provider Active Start: May 10, 2025 End: May 10, 2025 Team Status: Active Member Role/Relationship Status Dates No Primary Care Physician Primary care physician Activ e Team Status: Inactive Member Role/Relationship Status Dates No Primary Care Physician Primary care physician Activ e Start: February 16, 2025 End: February 16, 2025 No Primary Care Physician Referring Provider Active Start: February 16, 2025 End: February 16, 2025 Dr. Mary Baker DO Attending physician Acti ve Start: February 16, 2025 End: February 16, 2025 Team Status: Inactive Member Role/Relationship Status Dates No Primary Care Physician Primary care physician Activ e Start: February 16, 2025 End: February 16, 2025 Dr. Mary Baker DO Attending physician Acti ve Start: February 16, 2025 End: February 16, 2025 Dr. Mary Baker DO Referring Provider Activ e Start: February 16, 2025 End: February 16, 2025 Team Status: Inactive Member Role/Relationship Status Dates No Primary Care Physician Primary care physician Activ e Start: March 05, 2025 End: March 05, 2025 Angy Kahn DENTAL LABORATORY TECHNOLOGY TEACHER, DENTAL LABORATORY TECHNOLOGY TEACHER-C Attending physician Active Start: March 05, 2025 End: March 05, 2025 Angy Kahn DENTAL LABORATORY TECHNOLOGY TEACHER, DENTAL LABORATORY TECHNOLOGY TEACHER-C Referring Provider Active Start: March 05, 2025 End: March 05, 2025 Team Status: Inactive Member Role/Relationship Status Dates No Primary Care Physician Primary care physician Activ e Start: March 13, 2025 End: March 13, 2025 No Primary Care Physician Referring Provider Active Start: March 13, 2025 End: March 13, 2025 Angy Kahn DENTAL LABORATORY TECHNOLOGY TEACHER, DENTAL LABORATORY TECHNOLOGY TEACHER-C Attending physician Active Start: March 13, 2025 End: March 13, 2025 Team Status: Inactive Member Role/Relationship Status Dates No Primary Care Physician Primary care physician Activ e Start: March 13, 2025 End: March 13, 2025 Dr. Mary Baker DO Attending physician Acti ve Start: March 13, 2025 End: March 13, 2025 Team Status: Inactive Member Role/Relationship Status Dates No Primary Care Physician Primary care physician Activ e Start: April 09, 2025 End: April 09, 2025 No Primary Care Physician Referring Provider Active Start: April 09, 2025 End: April 09, 2025 Violeta Nair CNM Attending physician Active Start: April 09, 2025 End: April 09, 2025 Team Status: Inactive Member Role/Relationship Status Dates No Primary Care Physician Primary care physician Activ e Start: May 10, 2025 End: May 10, 2025 No Primary Care Physician Referring Provider Active Start: May 10, 2025 End: May 10, 2025 Dr. Amira Alvarado MD Attending physician Active Start: May 10, 2025 End: May 10, 2025 Team Status: Inactive Member Role/Relationship Status Dates No Primary Care Physician Primary care physician Activ e Start: June 06, 2025 End: June 06, 2025 No Primary Care Physician Referring Provider Active Start: June 06, 2025 End: June 06, 2025 Angy Kahn NP, DENTAL LABORATORY TECHNOLOGY TEACHER-C Attending physician Active Start: June 06, 2025 End: June 06, 2025 Team Status: Inactive Member Role/Relationship Status Dates No Primary Care Physician Primary care physician Activ e Start: April 09, 2025 End: April 09, 2025 No Primary Care Physician Referring Provider Active Start: April 09, 2025 End: April 09, 2025 Violeta Nair CNM Attending physician Active Start: April 09, 2025 End: April 09, 2025 Team Status: Inactive Member Role/Relationship Status Dates No Primary Care Physician Primary care physician Activ e Start: May 10, 2025 End: May 10, 2025 No Primary Care Physician Referring Provider Active Start: May 10, 2025 End: May 10, 2025 Dr. Amira Alvarado MD Attending physician Active Start: May 10, 2025 End: May 10, 2025 Team Status: Inactive Member Role/Relationship Status Dates No Primary Care Physician Primary care physician Activ e Start: June 06, 2025 End: June 06, 2025 No Primary Care Physician Referring Provider Active Start: June 06, 2025 End: June 06, 2025 Angy Kahn NP, DENTAL LABORATORY TECHNOLOGY TEACHER-C Attending physician Active Start: June 06, 2025 End: June 06, 2025 Team Status: Active Member Role/Relationship Status Dates No Primary Care Physician Primary care physician Activ e Start: July 05, 2025 Angy Kahn NP, DENTAL LABORATORY TECHNOLOGY TEACHER-C Attending physician Active Start: July 05, 2025 Angy Kahn DENTAL LABORATORY TECHNOLOGY TEACHER, DENTAL LABORATORY TECHNOLOGY TEACHER-C Referring Provider Active Start: July 05, 2025 Team Status: Inactive Member Role/Relationship Status Dates No Primary Care Physician Primary care physician Activ e Start: July 05, 2025 End: July 05, 2025 No Primary Care Physician Referring Provider Active Start: July 05, 2025 End: July 05, 2025 Dr. Mary Baker DO Attending physician Acti ve Start: July 05, 2025 End: July 05, 2025 Goals (unrecognized section and content) Type Care Experience Labor Preferences-CB /BF classes: []labor support person: []labor intervention preferences: []pain management options preferred: []cut cord/dad catch: []: []PP control planned: []discussed possible routes of delivery and associated risks: []special requests: [] FOR RECORDS PERTAINING TO PATIENTS WHO ARE OR HAVE BEEN ENROLLED IN A CHEMICAL DEPENDENCY/SUBSTANCEABUSE PROGRAM, SOME INFORMATION MAY BE OMITTED. This clinical summary was aggregated from multiple sources. Caution should be exercised in using it in the provision of clinical care. This summary normalizes information from multiple sources, and as a consequence, information in this document may materially change the coding, format and clinical context of patient data. In addition, data may be omitted in some cases. CLINICAL DECISIONS SHOULD BE BASED ON THE PRIMARY CLINICAL RECORDS. [employer] [facility]. provides no warranty or guarantee of the accuracy or completeness of information in this document.
== END | disposition home or self-care (01) ==
LOC: LABSPEC 12:21
PROVIDERS: Visit Provider Obstetrics & Gynecology
DX: O09.90 Supervision of high risk pregnancy, unspecified, unspecified trimester (principal); Z3A.36 36 weeks gestation of pregnancy
CPT/HCPCS: 87081

== ENCOUNTER → 2025-09-14 | Outpatient (CLI) | payer OTHER, SELFPAY ==
--- OUTSIDE RECORDS SUMMARY | 2025-09-14 11:37 | XMS RPT_ITS | CCD ---
Author Organization [facility] Care Team Providers Care Straw 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 Name Role Phone Care Physician, No Primary Primary Care Provider Unavailable Care Physician, No Primary Referring Provider Un available Raegan REYES, Dr. Collier Attending Provider [phone] Dr. Mary Baker DO Attending Provider Dr. [...] No Primary Referring Provider Un available Criss COMPRESS ENGINEER-CAngy Attending Physician [phone] Criss COMPRESS ENGINEER-CAngy Referring Provider [phone] Dr. Mary Baker DO Attending Physician Care [...] Physician, No Primary Referring Unava ilable Criss COMPRESS ENGINEER, Angy Attending Unavailable Care Physician, No Primary Primary Care Unava ilable Care Physician, No Primary Referring Unava ilable Mary Baker Attending Unavailabl e Care Physician, No Primary Primary Care Unava ilable Care Physician, No Primary Referring Unava ilable [place] COMPRESS ENGINEER, Angy Attending Unavailable Care Physician, No Primary [...] No Primary Primary Care Unava ilable Criss COMPRESS ENGINEER, Angy Referring Unavailable [place] COMPRESS ENGINEER, Angy Attending Unavailable Care Physician, No Primary [...] natural latex rubber Allergy to substance 5 [facility] Comment on above: dry skin (2 sources) Latex; Translations: [LATEX] Propensity to adverse reactions 5 Rash [facility] (2 sources) Other; Translations: [OTHER] Propensity to adverse reactions 5 Swelling, Other (See Comments) [facility] (1 source) natural latex rubber Drug allergy (disorder) 5 [facility] Repository Medications Current Medications Medication Drug Class(es) [...] (OVASITOL PO) Take by mouth Active Mv-Mins 74-Qaau-Ihsol No.1-D barry (Pnv-[place]) 28-1-300 mg capsule (11 sources) Start: 01-30-2025 Mv-Mins 71-Iro n-Folic No.1-Dha (Pnv-[place]) 28-1-300 mg capsule Active 1 NMA PO DAILY January 30, 2025 12:00am Complies with drug therapy Start: 01-30-2025 Mv-Mins 71-Iro n-Folic No.1-Dha (Pnv-[place]) 28-1-300 mg capsule Active 1 NMA PO DAILY January 30, 2025 12:00am [place]-3 Fatty Acids (FISH OIL PO) (1 source) [place]-3 Fatty Ac ids (FISH OIL PO) Take [...] above: Vit D 10,000iu daily , 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 Reading Location: [id number] CC: KENNY Nair; No Primary Care Physician Application Developer: Signed Normal [facility] Paper Twister Tender Office Visit Reporton 07-30-2025 Paper Twister Tender Office Visit Report [facility] [address], [address] [place] [address] OFFICE VISIT Date of Service: 07/30/25 MR#: [id number] Acct: [id number] Name: AVILESKEIRA Rep #: [id number] : 1990 Provider: Dr. Amira ward MD Age/Sex: 35/F Location: [facility] Status: Signed Intake Vital Signs 06/06/25 08:47 07/19/25 09:21 07/30/25 08:56 Height 5 ft 1 in 5 ft 1 in 5 ft 1 in Weight: 208 lb 6 oz BMI 39.3 BP 131/72 H Intake Visit Reasons: 32wk ob Firewall Administrator Required: No Is patient in pain?: No [...] mg-folate no.1 1 mg-dha 300 mg capsule (PNV-[place]) Last Menstrual Period: 12/14/24 Zika: Zika virus screening: Negative : No Have you fallen in the past year?: No PFSH PFSH Medical History Seasonal allergies Surgical History [place] teeth extracted Family History Sister MTHFR gene mutation Half sister Spina bifida Mother MTHFR gene mutation Arthritis Hypertension Addiction to drug Grandmother Arthritis Maternal Alcoholism maternal Kidney disease, Onset Age: 32 kidney removed Grandfather Arthritis Maternal Diabetes Maternal Father Alcoholism Social History adopted: No household members: family housing: house current occupational status: employed 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 Normal [facility] Paper Twister Tender Office Visit Reporton 07-19-2025 Paper Twister Tender Office Visit Report [facility] [address] [facility], [address] [place] [address] OFFICE VISIT Date of Service: 07/19/25 MR#: [id number] Acct: [id number] Name: SORAYA AVILESA EL Rep #: [id number] : 1990 Provider: KENNY Rojas ams Age/Sex: 35/F Location[facility] Status: Signed with Addenda ADDENDUM by Silvia Stahl on 07/19/25 at 0949 Office Procedure Documentation entered by Silvia Stahl 07/19/25 09:49: Immunizations Flucelvax [id number] (PF) 45 mcg (15 mcg x 3)/0.5 mL IM syringe Performing Provider: Violeta Nair CNM Performing Location: [facility] Administered by: Silvia Stahl on 07/19/25 09:48 Dose Route Admin Location Dispensed Lot Number Expiration Date Package NDC NDC Supervisor Paint Roller Covers 0.5 mL IM Left Deltoid 0.5 mL [id number] 01/27/26 46408-035-26 [id number] [facility] [employer] [employer] VIS Given Date VIS Provided VIS Publication Date 07/19/25 Single Vaccine 24 Eligibility Eligibility Date Funding Source Not Applicable Adacel(Tdap Adolesn/Adult)(PF) 2 Lf-(2.5-5-3-5)-5 Lf/0.5 mL IM syringe Performing Provider: Violeta Nair CNM Performing Location: [facility] Administered by: Silvia Stahl on 07/19/25 09:48 Dose Route Admin Location Dispensed Lot Number Expiration Date Package NDC NDC Supervisor Paint Roller Covers 0.5 mL IM Right Deltoid 0.5 mL [id number] 04/20/27 97698-272-72 [id number] S [employer] VIS Given Date VIS Provided VIS Publication Date 07/19/25 Single Vaccine 24 Eligibility Eligibility Date Funding Source Not Applicable Date cc: * Signed Intake Vital Signs 05/10/25 09:41 07/05/25 10:45 07/19/25 09:21 Height 5 ft 1 in 5 ft 1 in 5 ft 1 in Weight: 206 lb BMI 38.9 BP 120/75 Intake Visit Reasons: 30wk ob Chief Complaint: 30wk OB Firewall Administrator Required: No Is patient in pain?: No [...] mg-folate no.1 1 mg-dha 300 mg capsule (PNV-[place]) fosfomycin tromethamine 3 gram 3 g PO ONCE #1 ea 02/19/25 5 Rx oral packet Last Menstrual Period: 12/14/24 : No Have you fallen in the past year?: No PFSH PFSH Medical History Seasonal allergies Surgical History [place] teeth extracted Family History Sister MTHFR gene mutation Half sister Spina bifida Mother MTHFR gene mutation Arthritis Hypertension Addiction to drug Grandmother Arthritis Maternal Alcoholism maternal Kidney disease, Onset Age: 32 kidney removed Grandfather Arthritis Maternal Diabetes Maternal Father Alcoholism Social History adopted: No household members: family housing: house current occupational status: employed 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 Normal [facility] Urine Drug Screen (VISTA)on 07-19-2025 AMPHETAMINES Negative Normal <1000 ng/mL [facility] Comment on above: Order Comment: UNK Performed By: #### L 505.5000 #### [facility] [address] [place] [address] BARBITIURATES Negative Normal < 200 ng/mL [facility] Comment on above: Order Comment: UNK Performed By: #### L 505.5000 #### [facility] [address] [place] [address] BENZODIAZIPINE Negative Normal < 200 ng/mL [facility] Comment on above: Order Comment: UNK Performed By: #### L 505.5000 #### [facility] [address] [place] [id number] BUP Ur Drug Scr Negative Normal < 200 ng/mL [facility] Comment on above: Order Comment: UNK Performed By: #### L 505.5000 #### [facility] [address] [facility] [place] [id number] COCAINE Negative Normal < 300 ng/mL [facility] Comment on above: Order Comment: UNK Performed By: #### L 505.5000 #### [facility] [address] [place] [id number] Fentanyl Negative Normal <5 ng/mL [facility] Comment on above: Order Comment: UNK Result [...] UTCA Performed By: #### L 505.5000 #### [facility] [address] [place] [address] METHADONE Negative Normal < 300 ng/mL [facility] Comment on above: Order Comment: UNK Performed By: #### L 505.5000 #### [facility] [address] [place] [address] OPIATES Negative Normal < 300 ng/mL [facility] Comment on above: Order Comment: UNK Performed By: #### L 505.5000 #### [facility] [address] [place] [address] OXYCODONE Negative Normal < 100 ng/mL [facility] Comment on above: Order Comment: UNK Performed By: #### L 505.5000 #### [facility] [address] [place] [address] PCP Negative Normal < 25 ng/mL [facility] Comment on above: Order Comment: UNK Performed By: #### L 505.5000 #### [facility] [address] [place] [address] THC Negative Normal < 50 ng/mL [facility] Comment on above: Order Comment: UNK Performed By: #### L 505.5000 #### [facility] [address] [place] [address] Absolute lymphocyte countOrd ered By: Angy Kahn on 07-05-2025 Lymphocytes Auto (Unsp spec) [#/Vol] 1.46 10*3/uL 0.83-4.51 [facility] Absolute neutrophil countOrd ered By: Angy Kahn on 07-05-2025 Neutrophils (Bld) [#/Vol] 11.2 10*3/uL High 2.0-7.7 [facility] Amphetamine detection with 1 000 ng/mL as cutoffOrdered By: Mary Shea on 07-05-2025 Amphetamines Screen method >1000 ng/mL Ql (U) Negative < 200 ng/mL [facility] Automated lymphocyte count a s percentage of total leukocytesOrdered By: Angy Kahn on 07-05-2025 Lymphocytes/100 WBC Auto (Unsp spec) 10.7 % Low 19-41 [facility] Basophil percentageOrdered B y: Angy Kahn on 07-05-2025 Basophils/100 WBC (Bld) 0.2 % 0-1 [facility] CBC W/Diff, Automatedon 06-20 Absolute Lymph 1.46 X10 3/uL Normal 0.83-4.51 [facility] Comment on above: Performed By: #### L 505.5000, M100.2200, L7000.1800, L7400.0280 #### [facility] [address] [place], [address] Absolute Neut 11.2 X10 3/uL High 2.0-7.7 [facility] Comment on above: Performed By: #### L 505.5000, M100.2200, L7000.1800, L7400.0280 #### [facility] [address] [place], [address] Basophils/100 WBC (Bld) 0.2 % Normal 0-1 [facility] Comment on above: Performed By: #### L 505.5000, M100.2200, L7000.1800, L7400.0280 #### [facility] [address] [place], [address] Eosinophils/100 WBC (Bld) 1.2 % Normal 0-5 [facility] Comment on above: Performed By: #### L 505.5000, M100.2200, L7000.1800, L7400.0280 #### [facility] [address] [place], [address] Erythrocyte distribution width (RBC) [Ratio] 12.6 % Normal 11.6-14.6 [facility] Comment on above: Performed By: #### L 505.5000, M100.2200, L7000.1800, L7400.0280 #### [facility] [address] [place], [address] Hematocrit (Bld) [Volume fraction] 35.6 % Low 37-47 [facility] Comment on above: Performed By: #### L 505.5000, M100.2200, L7000.1800, L7400.0280 #### [facility] [address] [place], [address] Hemoglobin (Bld) [Mass/Vol] 12.0 g/dL Normal 12.0-15.0 [facility] Comment on above: Performed By: #### L 505.5000, M100.2200, L7000.1800, L7400.0280 #### [facility] [address] [place], [address] IG% 0.500 Normal 0.0-0.9 [facility] Comment on above: Result Comment: IG% - Immature Granulocytes (promyelocytes, myelocytes and metamyelocytes) > 1% indicates that a LEFT SHIFT is Present. Performed By: #### L 505.5000, M100.2200, L7000.1800, L7400.0280 #### [facility] [address] [place], [address] Lymphocytes/100 WBC (Bld) 10.7 % Low 19-41 [facility] Comment on above: Performed By: #### L 505.5000, M100.2200, L7000.1800, L7400.0280 #### [facility] [address] [place], [address] MCH (RBC) [Entitic mass] 31.3 pg Normal 27.0-32.0 [facility] Comment on above: Performed By: #### L 505.5000, M100.2200, L7000.1800, L7400.0280 #### [facility] [address] [place], [address] MCHC (RBC) [Mass/Vol] 33.7 g/dL Normal 32-36 [facility] Comment on above: Performed By: #### L 505.5000, M100.2200, L7000.1800, L7400.0280 #### [facility] [address] [place], [address] MCV (RBC) [Entitic vol] 92.7 fL Normal 81-99 [facility] Comment on above: Performed By: #### L 505.5000, M100.2200, L7000.1800, L7400.0280 #### [facility] [address] [place], [address] Monocytes/100 WBC (Bld) 6.0 % Normal 0-10 [facility] Comment on above: Performed By: #### L 505.5000, M100.2200, L7000.1800, L7400.0280 #### [facility] [address] [place], [address] Neutrophils/100 WBC (Bld) 81.4 % High 47-70 [facility] Comment on above: Performed By: #### L 505.5000, M100.2200, L7000.1800, L7400.0280 #### [facility] [address] [place], [address] Nucleated RBC (Bld) [#/Vol] 0 10*3/uL Normal 0-5 [facility] Comment on above: Performed By: #### L 505.5000, M100.2200, L7000.1800, L7400.0280 #### [facility] [address] [place], [address] Platelet mean volume (Bld) [Entitic vol] 8.7 fL Normal 6.2-12.0 [facility] Comment on above: Performed By: #### L 505.5000, M100.2200, L7000.1800, L7400.0280 #### [facility] [address] [place], [address] Platelets (Bld) [#/Vol] 315 10*3/uL Normal 150-450 [facility] Comment on above: Performed By: #### L 505.5000, M100.2200, L7000.1800, L7400.0280 #### [facility] [address] [place], [address] RBC (Bld) [#/Vol] 3.84 10*6/uL Low 4.2-5.4 [facility] Comment on above: Performed By: #### L 505.5000, M100.2200, L7000.1800, L7400.0280 #### [facility] [address] [place], [address] RDW SD 42.5 fl Normal 35.1-43.9 [facility] Comment on above: Performed By: #### L 505.5000, M100.2200, L7000.1800, L7400.0280 #### [facility] [address] [place], [address] WBC (Bld) [#/Vol] 13.7 10*3/uL High 4.4-11.0 [facility] Comment on above: Performed By: #### L 505.5000, M100.2200, L7000.1800, L7400.0280 #### [facility] [address] [place], [address] Eosinophil percentageOrdered By: Angynguyễn Kahn on 07-05-2025 Eosinophils/100 WBC (Bld) 1.2 % 0-5 [facility] Erythrocyte distribution wid th ratioOrdered By: Angy Criss on 07-05-2025 Erythrocyte distribution width (RBC) [Ratio] 12.6 % 11.6-14.6 [facility] Erythrocyte distribution wid th standard deviationOrdered By: Angy Criss on 07-05-2025 Erythrocyte distribution width (RBC) [Ratio] 42.5 fl 35.1-43.9 [facility] Glucose Challenge Gest 1H 50 letitia 07-05-2025 GLU GEST 50g 1H 108 mg/dL Normal 70-140 [facility] Comment on above: Performed By: #### L 505.5000, M100.2200, L7000.1800, L7400.0280 #### [facility] [address] [place], [address] Glucose measurement at 2 yamilet rs post-dose gestational glucose tolerance testOrdered By: Angy Kahn on 07-05-2025 Glucose [Mass/Vol] 108 mg/dL 70-140 [facility] HIVon 07-05-2025 HIV Non-Reactive Normal Nonreactive [facility] Comment on above: Result Comment: Non- Reactive Reactive Repeatedly reactive samples must be confirmed according to CDC recommended confirmatory algorithms. The subresults for either HIVAG or AHIV can be used as an aid in the selection of the confirmation algorithm for reactive samples. Send out specimens with Reactive results to [facility] for confirmation. Order the HIV antibody detection and differentiation: lc#[id number] Performed By: #### L 505.5000, M100.2200, L7000.1800, L7400.0280 #### [facility] [address] [place], [address] Hematocrit Auto (Bld) [Volum e fraction]Ordered By: Angy Kahn on 07-05-2025 Hematocrit (Bld) [Volume fraction] 35.6 % Low 37-47 [facility] Hemoglobin measurementOrdere d By: Angy Kahn on 07-05-2025 Hemoglobin (Bld) [Mass/Vol] 12.0 g/dL 12.0-15.0 [facility] Immature granulocytes/100 WB C Auto (Bld)Ordered By: Angy Kahn on 07-05-2025 Immature granulocytes/100 WBC (Bld) 0.500 % 0.0-0.9 [facility] Comment on above: IG% - Immature Granu locytes (promyelocytes, myelocytes and metamyelocytes) > 1% indicates that a LEFT SHIFT is Present. Laboratory - Chemistry and C hemistry - challengeOrdered By: Mary Shea on 07-05-2025 Glucose Ql (U) Negative [facility] Laboratory - UrinalysisOrder ed By: Mary Shea on 07-05-2025 Protein Ql (U) Negative [facility] MCV (mean corpuscular volume ) determinationOrdered By: Angy Kahn on 07-05-2025 MCV (RBC) [Entitic vol] 92.7 fL 81-99 [facility] Mean corpuscular hemoglobin (MCH) determinationOrdered By: Angy Kahn on 07-05-2025 MCH (RBC) [Entitic mass] 31.3 pg 27.0-32.0 [facility] Mean corpuscular hemoglobin concentration (MCHC) determinationOrdered By: Angy Kahn on 07-05-2025 MCHC (RBC) [Mass/Vol] 33.7 g/dL 32-36 [facility] Mean platelet volume determi nationOrdered By: Angy Kahn on 07-05-2025 Platelet mean volume (Bld) [Entitic vol] 8.7 fL 6.2-12.0 [facility] Monocyte percentageOrdered B y: Angy Kahn on 07-05-2025 Monocytes/100 WBC (Bld) 6.0 % 0-10 [facility] Neutrophil percentageOrdered By: Angy Kahn on 07-05-2025 Neutrophils/100 WBC (Bld) 81.4 % High 47-70 [facility] No Panel InformationOrdered By: Mary Shea on 07-05-2025 Urine Buprenorphine Qualitative Negative < 200 ng/mL [facility] Urine Oxycodone Screen Negative < 100 ng/mL [facility] No Panel InformationOrdered By: Angy Kahn on 07-05-2025 HIV (1&2) Antibody Non-Reactive Nonreactive [facility] Comment on above: Non-ReactiveReactive Repeatedly reactive samples must be confirmed according to CDC recommended confirmatory algorithms. The subresults for either HIVAG or AHIV can be used as an aid in the selection of the confirmation algorithm for reactive samples.Send out specimens with Reactive results to [facility] for confirmation.Order the HIV antibody detection and differentiation: #[id number] Nucleated red blood cell per centageOrdered By: Angy Kahn on 07-05-2025 Nucleated RBC/100 WBC (Bld) [Ratio] 0 % 0-5 [facility] Paper Twister Tender Office Visit Reporton 07-05-2025 Paper Twister Tender Office Visit Report [facility] [address], [address] [place] [address] OFFICE VISIT Date of Service: 07/05/25 MR#: [id number] Acct: [id number] Name: KEIRA AVILES Rep #: [id number] : 1990 Provider: Dr. Mary Roberson DO Age/Sex: 35/F Location[facility] Status: Signed Intake Vital Signs 05/10/25 09:41 06/06/25 08:47 07/05/25 10:43 07/05/25 10:45 Height 5 ft 1 in 5 ft 1 in 5 ft 1 in 5 ft 1 in Weight: 201 lb 6 oz BMI 38.0 BP 125/80 H Intake Visit Reasons: 28wk ob/glucose Firewall Administrator Required: No Is patient in pain?: No [...] mg-folate no.1 1 mg-dha 300 mg capsule (PNV-[place]) fosfomycin tromethamine 3 gram 3 g PO ONCE #1 ea 02/19/25 5 Rx oral packet Last Menstrual Period: 12/14/24 Zika: Zika virus screening: Negative : No PFSH PFSH Medical History Seasonal allergies Surgical History [place] teeth extracted Family History Sister MTHFR gene mutation Half sister Spina bifida Mother MTHFR gene mutation Arthritis Hypertension Addiction to drug Grandmother Arthritis Maternal Alcoholism maternal Kidney disease, Onset Age: 32 kidney removed Grandfather Arthritis Maternal Diabetes Maternal Father Alcoholism Social History adopted: No household members: family housing: house current occupational status: employed 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 Normal [facility] Platelet countOrdered By: Ladarius Kahn on 07-05-2025 Platelets (Bld) [#/Vol] 315 10*3/uL 150-450 [facility] Quantitative urine opiates m easurementOrdered By: Mary Shea on 07-05-2025 Opiates Ql (U) Negative < 300 ng/mL [facility] RBC Auto (Bld) [#/Vol]Ordere d By: Angy Kahn on 07-05-2025 RBC (Bld) [#/Vol] 3.84 10*6/uL Low 4.2-5.4 [facility] Screening urine fentanyl naresh surementOrdered By: Mary Shea on 07-05-2025 fentaNYL Screen Ql (U) Negative <5 ng/mL [facility] Comment on above: CONFIRMATORY TESTING FOR ALL [...] Antibodieson 2024 Syphilis Abs Non-Reactive Normal Nonreactive [facility] Comment on above: Performed By: #### L 505.5000, M100.2200, L7000.1800, L7400.0280 #### [facility] [address] [place], [place], [address] Urine Drug Screen (VISTA)on 07-05-2025 AMPHETAMINES Negative Normal <1000 ng/mL [facility] Comment on above: Order Comment: Speci men Comment: [id number] Specimen Comment: Source.............Cervix Specimen Comment: LMP / Prev Treat...[id number] Specimen Comment: No. of containers..01 ThinPrep Vial Performed By: #### L 505.5000, M100.2200, L7000.1800, L7400.0280 #### [facility] [address] [place], [place], [address] BARBITIURATES Negative Normal < 200 ng/mL [facility] Comment on above: Order Comment: Speci men Comment: [id number] Specimen Comment: Source.............Cervix Specimen Comment: LMP / Prev Treat...[id number] Specimen Comment: No. of containers..01 ThinPrep Vial Performed By: #### L 505.5000, M100.2200, L7000.1800, L7400.0280 #### [facility] [address] [place], [address] BENZODIAZIPINE Negative Normal < 200 ng/mL [facility] Comment on above: Order Comment: Speci men Comment: [id number] Specimen Comment: Source.............Cervix Specimen Comment: LMP / Prev Treat...[id number] Specimen Comment: No. of containers..01 ThinPrep Vial Performed By: #### L 505.5000, M100.2200, L7000.1800, L7400.0280 #### [facility] [address] [place], [address] BUP Ur Drug Scr Negative Normal < 200 ng/mL [facility] Comment on above: Order Comment: Speci men Comment: [id number] Specimen Comment: Source.............Cervix Specimen Comment: LMP / Prev Treat...[id number] Specimen Comment: No. of containers..01 ThinPrep Vial Performed By: #### L 505.5000, M100.2200, L7000.1800, L7400.0280 #### [facility] [address] [place], [address] COCAINE Negative Normal < 300 ng/mL [facility] Comment on above: Order Comment: Speci men Comment: [id number] Specimen Comment: Source.............Cervix Specimen Comment: LMP / Prev Treat...[id number] Specimen Comment: No. of containers..01 ThinPrep Vial Performed By: #### L 505.5000, M100.2200, L7000.1800, L7400.0280 #### [facility] [address] [place], [place], [address] Fentanyl Negative Normal <5 ng/mL [facility] Comment on above: Order Comment: Speci men Comment: [id number] Specimen Comment: Source.............Cervix Specimen Comment: LMP / Prev Treat...[id number] Specimen Comment: No. of containers..01 ThinPrep Vial [...] #### L 505.5000, M100.2200, L7000.1800, L7400.0280 #### [facility] [address] [place], [address] METHADONE Negative Normal < 300 ng/mL [facility] Comment on above: Order Comment: Speci men Comment: [id number] Specimen Comment: Source.............Cervix Specimen Comment: LMP / Prev Treat...[id number] Specimen Comment: No. of containers..01 ThinPrep Vial Performed By: #### L 505.5000, M100.2200, L7000.1800, L7400.0280 #### [facility] [address] [place], [address] OPIATES Negative Normal < 300 ng/mL [facility] Comment on above: Order Comment: Speci men Comment: [id number] Specimen Comment: Source.............Cervix Specimen Comment: LMP / Prev Treat...[id number] Specimen Comment: No. of containers..01 ThinPrep Vial Performed By: #### L 505.5000, M100.2200, L7000.1800, L7400.0280 #### [facility] [address] [place], [address] OXYCODONE Negative Normal < 100 ng/mL [facility] Comment on above: Order Comment: Speci men Comment: [id number] Specimen Comment: Source.............Cervix Specimen Comment: LMP / Prev Treat...[id number] Specimen Comment: No. of containers..01 ThinPrep Vial Performed By: #### L 505.5000, M100.2200, L7000.1800, L7400.0280 #### [facility] [address] [place], [address] PCP Negative Normal < 25 ng/mL [facility] Comment on above: Order Comment: Speci men Comment: [id number] Specimen Comment: Source.............Cervix Specimen Comment: LMP / Prev Treat...[id number] Specimen Comment: No. of containers..01 ThinPrep Vial Performed By: #### L 505.5000, M100.2200, L7000.1800, L7400.0280 #### [facility] [address] [place], [place], [address] THC Negative Normal < 50 ng/mL [facility] Comment on above: Order Comment: Speci men Comment: [id number] Specimen Comment: Source.............Cervix Specimen Comment: LMP / Prev Treat...[id number] Specimen Comment: No. of containers..01 ThinPrep Vial Performed By: #### L 505.5000, M100.2200, L7000.1800, L7400.0280 #### [facility] [address] [place], [place], [address] Urine benzodiazepine levelOr dered By: Mary Shea on 07-05-2025 Benzodiazepines Ql (U) Negative < 200 ng/mL [facility] Urine cocaine levelOrdered B y: Mary Shea on 07-05-2025 Cocaine Ql (U) Negative < 300 ng/mL [facility] Urine oqown-5-jrpcbqphxmknvy abinol (THC) measurementOrdered By: Mary Shea on 07-05-2025 Cannabinoids Screen Ql (U) Negative < 50 ng/mL [facility] Urine phencyclidine (PCP) de tectionOrdered By: Mary Shea on 07-05-2025 Phencyclidine Ql (U) Negative < 25 ng/mL [facility] White blood cell (WBC) count Ordered By: Angy Kahn on 07-05-2025 WBC (Bld) [#/Vol] 13.7 10*3/uL High 4.4-11.0 [facility] - Chemistry and C hemistry - challengeOrdered By: Angy Kahn on 06-06-2025 Glucose Ql (U) Negative [facility] - UrinalysisOrder ed By: Angy Kahn on 06-06-2025 Protein Ql (U) Negative [facility] Paper Twister Tender Office Visit Reporton 06-06-2025 Paper Twister Tender Office Visit Report [facility] [address], [address] [place] [address] OFFICE VISIT Date of Service: 06/06/25 MR#: [id number] Acct: [id number] Name: KEIRA AVILES Rep #: [id number] : 1990 Provider: CHARLES amador Age/Sex: 35/F Location: [facility] Status: Signed Intake Vital Signs 03/13/25 08:45 05/10/25 09:41 06/06/25 08:47 Height 5 ft 1 in 5 ft 1 in 5 ft 1 in Weight: 191 lb 8 oz BMI 36.1 BP 120/79 Intake Visit Reasons: 24wk ob Chief Complaint: 24 Week OB Firewall Administrator Required: No Is patient in pain?: No [...] mg-folate no.1 1 mg-dha 300 mg capsule (PNV-[place]) fosfomycin tromethamine 3 gram 3 g PO ONCE #1 ea 02/19/25 5 Rx oral packet Last Menstrual Period: 12/14/24 Zika: Zika virus screening: Negative : No PFSH PFSH Medical History Seasonal allergies Surgical History [place] teeth extracted Family History Sister MTHFR gene mutation Half sister Spina bifida Mother MTHFR gene mutation Arthritis Hypertension Addiction to drug Grandmother Arthritis Maternal Alcoholism maternal Kidney disease, Onset Age: 32 kidney removed Grandfather Arthritis Maternal Diabetes Maternal Father Alcoholism Social History adopted: No household members: family housing: house current occupational status: employed 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 Discussed (more content not included)... Normal [facility] - Chemistry and C hemistry - challengeOrdered By: Amira Alvarado on 05-10-2025 Glucose Ql (U) Negative [facility] - UrinalysisOrder ed By: mAira Alvarado on 05-10-2025 Protein Ql (U) Negative [facility] Paper Twister Tender Office Visit Reporton 05-10-2025 Paper Twister Tender Office Visit Report [facility] [address], [address] [place] [address] OFFICE VISIT Date of Service: 05/10/25 MR#: [id number] Acct: [id number] Name: KEIRA AVILES Rep #: [id number] : 1990 Provider: Dr. Amira ward MD Age/Sex: 35/F Location: [facility] Status: Signed Intake Vital Signs 03/13/25 08:45 04/09/25 11:10 05/10/25 09:41 Height 5 ft 1 in 5 ft 1 in 5 ft 1 in Weight: 185 lb BMI 34.9 BP 123/74 H Intake Visit Reasons: 19wk ob Firewall Administrator Required: No Is patient in pain?: No [...] mg-folate no.1 1 mg-dha 300 mg capsule (PNV-[place]) fosfomycin tromethamine 3 gram 3 g PO ONCE #1 ea 02/19/25 5 Rx oral packet Last Menstrual Period: 12/14/24 Zika: Zika virus screening: Negative : No PFSH PFSH Medical History Seasonal allergies Surgical History [place] teeth extracted Family History Sister MTHFR gene mutation Half sister Spina bifida Mother MTHFR gene mutation Arthritis Hypertension Addiction to drug Grandmother Arthritis Maternal Alcoholism maternal Kidney disease, Onset Age: 32 kidney removed Grandfather Arthritis Maternal Diabetes Maternal Father Alcoholism Social History adopted: No household members: family housing: house current occupational status: employed 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 Normal [facility] URINALYSIS, COMPLETEOrdered By: Jennifer Ramos on 05-09-2025 Bilirubin Ql (U) Negative Normal Negative [facility] Comment on above: Order Comment: Relea se to patient->Automatic Character Clear Normal [facility] Comment on above: Order Comment: Relea se to patient->Automatic Color (U) Light Yellow Normal [facility] Comment on above: Order Comment: Relea se to patient->Automatic Nitrite Ql (U) Negative Normal Negative [facility] Comment on above: Order Comment: Relea se to patient->Automatic pH (U) 7.0 [pH] Normal 5.0-8.0 [facility] Comment on above: Order Comment: Relea se to patient->Automatic URINALYSIS, COMPLETEon 05-09 Bacteria Rare Abnormal Negative [facility] Comment on above: Order Comment: Relea se to patient->Automatic Epithelial cells.squamous LM.HPF (Urine sed) [#/Area] 0 /[HPF] Normal <=2 [facility] Comment on above: Order Comment: Relea se to patient->Automatic Glucose Ql (U) Normal Normal Normal [facility] Comment on above: Order Comment: Relea se to patient->Automatic Ketones Ql (U) Negative Normal Negative [facility] Comment on above: Order Comment: Relea se to patient->Automatic Leukocyte esterase Test strip Ql (U) Negative Normal Negative [facility] Comment on above: Order Comment: Relea se to patient->Automatic Mucous Small Normal Neg-Small [facility] Comment on above: Order Comment: Relea se to patient->Automatic Protein Ql (U) Negative Normal Neg.-Trace [facility] Comment on above: Order Comment: Relea se to patient->Automatic RBC 0 /HPF Normal <=2 [facility] Comment on above: Order Comment: Relea se to patient->Automatic Renal Epithelial Cells 0 /HPF Normal <=2 [facility] Comment on above: Order Comment: Relea se to patient->Automatic Specific gravity (U) [Rel density] 1.012 Normal Reference Range: 1.005-1.030 [facility] Comment on above: Order Comment: Relea se to patient->Automatic Transitional Epithelial Cells 0 /HPF Normal <=2 [facility] Comment on above: Order Comment: Relea se to patient->Automatic Urobilinogen Normal Normal Normal [facility] Comment on above: Order Comment: Relea se to patient->Automatic Volume 12 mL Normal [facility] Comment on above: Order Comment: Relea se to patient->Automatic WBC 0 /HPF Normal <=2 [facility] Comment on above: Order Comment: Relea se to patient->Automatic URINE CULTUREon 05-09-2025 Bacteria identified Cx Nom (U) Urine Culture Three or more organisms present, none are predominant, which usually suggests contamination during collection. Recollect sample if clinically indicated. Normal [facility] Comment on above: Order Comment: Relea se to patient->Automatic Urinalysis, Complete (Chemis try & Micro)Ordered By: Jennifer Ramos on 05-09-2025 Bacteria Auto Ql (U) Rare Abnormal Negative [facility] Epithelial cells.renal Computer assisted (U) [#/Area] [facility] Epithelial cells.squamous Auto (Urine sed) [#/Area] 0 [facility] Glucose Auto test strip Ql (U) Normal Normal [facility] Hemoglobin Auto test strip Ql (U) Negative Negative [facility] Interpretation and review of laboratory results Abnormal [facility] Ketones (U) [Mass/Vol] Negative Negative [facility] Leukocyte esterase Auto test strip Ql (U) Negative Negative Jerry/uL [facility] Mucus Auto Ql (U) Small Neg-Small [facility] Protein (U) [Mass/Vol] Negative Neg.-Trace [facility] RBC Auto (Urine sed) [#/Area] 0 [facility] Specific gravity Refractometry automated (U) [Rel density] 1.012 Reference Range: 1.005-1.030 [facility] Specimen volume (U) 12 mL [facility] Transitional cells Computer assisted (U) [#/Area] 0 [facility] Urobilinogen (U) [Mass/Vol] Normal Normal mg/dL [facility] WBC Auto (Urine sed) [#/Area] 0 [facility] - Chemistry and C hemistry - challengeOrdered By: Violeta Nair on 04-09-2025 Glucose Ql (U) Negative [facility] - UrinalysisOrder ed By: Violeta Nair on 04-09-2025 Protein Ql (U) Negative [facility] Paper Twister Tender Office Visit Reporton 04-09-2025 Paper Twister Tender Office Visit Report [address], [address] [place] [address] OFFICE VISIT Date of Service: 04/09/25 MR#: [id number] Acct: [id number] Name: KEIRA AVILES Rep #: [id number] : 1990 Provider: KENNY Rojas [facility] Age/Sex: 35/F Location: [facility] Status: Signed Intake Vital Signs 02/16/25 11:46 03/13/25 08:45 04/09/25 11:10 04/09/25 11:10 Height 5 ft 1 in 5 ft 1 in 5 ft 1 in 5 ft 1 in Weight: 171 lb 4 oz BMI 32.3 BP 126/77 H Intake Visit Reasons: 15wk ob Chief Complaint: 15wk OB Firewall Administrator Required: No Is patient in pain?: No [...] mg-folate no.1 1 mg-dha 300 mg capsule (PNV-[place]) fosfomycin tromethamine 3 gram 3 g PO ONCE #1 ea 02/19/25 5 Rx oral packet Last Menstrual Period: 12/14/24 : No PFSH PFSH Medical History Seasonal allergies Surgical History [place] teeth extracted Family History Sister MTHFR gene mutation Half sister Spina bifida Mother MTHFR gene mutation Arthritis Hypertension Addiction to drug Grandmother Arthritis Maternal Alcoholism maternal Kidney disease, Onset Age: 32 kidney removed Grandfather Arthritis Maternal Diabetes Maternal Father Alcoholism Social History adopted: No household members: family housing: house current occupational status: employed 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 Normal [facility] Toxoplasma Gondii IgGon 02-19 TOXOPLASMA IgG < 3.0 Normal 0.0-7.1 [facility] Comment on above: Result Comment: Nega tive <7.2 Equivocal 7.2 - 8.7 Positive >8.7 Performed By: #### L 505.5000, M100.2200, L7000.1800, L5700.0280 #### [facility] [address] [place], [address] Toxoplasma Gondii IgMon 02-19 Tox. gondii Com Comment Normal . [facility] Comment on above: Result Comment: It i s presumed the patient has not been infected with and is not undergoing an acute infection with Toxoplasma. If symptoms persist, submit a new specimen after three weeks. Performed at: - [facility] [address] [place] [id number] Broaching Machine Repairer: Jorge rGegg PhD, Phone: [phone] Performed By: #### L 505.5000, M100.2200, L7000.1800, L7400.0280 #### [facility] [address] [place], [address] TOXOPLASMA IgM < 3.0 Normal 0.0-7.9 [facility] Comment on above: Result Comment: Nega tive <8.0 Equivocal 8.0 - 9.9 Positive >9.9 Performed By: #### L 505.5000, M100.2200, L7000.1800, L7400.0280 #### [facility] [address] [place], [address] Urine Cultureon 03-14-2025 [facility] Comments: 2 week ALEISHA Urine Culture Urine Culture Myroides spp [place] Count 50,000-80,000 * This is an amended [...] S Imipenem Islt RUDY <=0.5 S Normal [facility] Comment on above: Performed By: #### L 505.5000, M100.2200, L7000.1800, L7400.0280 #### [facility] [address] [place], [address] Absolute lymphocyte countOrd ered By: Mary Shea on 03-13-2025 Lymphocytes Auto (Unsp spec) [#/Vol] 2.18 10*3/uL 0.83-4.51 [facility] Absolute neutrophil countOrd ered By: Mary Shea on 03-13-2025 Neutrophils (Bld) [#/Vol] 8.8 10*3/uL High 2.0-7.7 [facility] Automated lymphocyte count a s percentage of total leukocytesOrdered By: Mary Garridogail on 03-13-2025 Lymphocytes/100 WBC Auto (Unsp spec) 17.7 % Low 19-41 [facility] Basophil percentageOrdered B y: Mary Shea on 03-13-2025 Basophils/100 WBC (Bld) 0.4 % 0-1 [facility] CBC W/Diff, Automatedon 02-19 Absolute Lymph 2.18 X10 3/uL Normal 0.83-4.51 [facility] Comment on above: Performed By: #### B TS, L3890.6301, L509.4006, L100.0100, L3400.1990, L501.9985, L3400.1980, L509.8002, L3890.6006, L3890.6102 #### [facility] [address] [place], [address] Absolute Neut 8.8 X10 3/uL High 2.0-7.7 [facility] Comment on above: Performed By: #### B TS, L3890.6301, L509.4006, L100.0100, L3400.1990, L501.9985, L3400.1980, L509.8002, L3890.6006, L3890.6102 #### [facility] [address] [place], [address] Basophils/100 WBC (Bld) 0.4 % Normal 0-1 [facility] Comment on above: Performed By: #### B TS, L3890.6301, L509.4006, L100.0100, L3400.1990, L501.9985, L3400.1980, L509.8002, L3890.6006, L3890.6102 #### [facility] [address] [place], [address] Eosinophils/100 WBC (Bld) 2.0 % Normal 0-5 [facility] Comment on above: Performed By: #### B TS, L3890.6301, L509.4006, L100.0100, L3400.1990, L501.9985, L3400.1980, L509.8002, L3890.6006, L3890.6102 #### [facility] [address] [place], [address] Erythrocyte distribution width (RBC) [Ratio] 12.3 % Normal 11.6-14.6 [facility] Comment on above: Performed By: #### B TS, L3890.6301, L509.4006, L100.0100, L3400.1990, L501.9985, L3400.1980, L509.8002, L3890.6006, L3890.6102 #### [facility] [address] [place], [address] Hematocrit (Bld) [Volume fraction] 36.1 % Low 37-47 [facility] Comment on above: Performed By: #### B TS, L3890.6301, L509.4006, L100.0100, L3400.1990, L501.9985, L3400.1980, L509.8002, L3890.6006, L3890.6102 #### [facility] [address] [place] [place], [address] Hemoglobin (Bld) [Mass/Vol] 12.4 g/dL Normal 12.0-15.0 [facility] Comment on above: Performed By: #### B TS, L3890.6301, L509.4006, L100.0100, L3400.1990, L501.9985, L3400.1980, L509.8002, L3890.6006, L3890.6102 #### [facility] [address] [place], [address] IG% 0.500 Normal 0.0-0.9 [facility] Comment on above: Result Comment: IG% - Immature Granulocytes (promyelocytes, myelocytes and metamyelocytes) > 1% indicates that a LEFT SHIFT is Present. Performed By: #### B TS, L3890.6301, L509.4006, L100.0100, L3400.1990, L501.9985, L3400.1980, L509.8002, L3890.6006, L3890.6102 #### [facility] [address] [place], [address] Lymphocytes/100 WBC (Bld) 17.7 % Low 19-41 [facility] Comment on above: Performed By: #### B TS, L3890.6301, L509.4006, L100.0100, L3400.1990, L501.9985, L3400.1980, L509.8002, L3890.6006, L3890.6102 #### [facility] [address] [place], [address] MCH (RBC) [Entitic mass] 31.1 pg Normal 27.0-32.0 [facility] Comment on above: Performed By: #### B TS, L3890.6301, L509.4006, L100.0100, L3400.1990, L501.9985, L3400.1980, L509.8002, L3890.6006, L3890.6102 #### [facility] [address] [place], [address] MCHC (RBC) [Mass/Vol] 34.3 g/dL Normal 32-36 [facility] Comment on above: Performed By: #### B TS, L3890.6301, L509.4006, L100.0100, L3400.1990, L501.9985, L3400.1980, L509.8002, L3890.6006, L3890.6102 #### [facility] [address] [place], [address] MCV (RBC) [Entitic vol] 90.5 fL Normal 81-99 [facility] Comment on above: Performed By: #### B TS, L3890.6301, L509.4006, L100.0100, L3400.1990, L501.9985, L3400.1980, L509.8002, L3890.6006, L3890.6102 #### [facility] [address] [place], [address] Monocytes/100 WBC (Bld) 7.5 % Normal 0-10 [facility] Comment on above: Performed By: #### B TS, L3890.6301, L509.4006, L100.0100, L3400.1990, L501.9985, L3400.1980, L509.8002, L3890.6006, L3890.6102 #### [facility] [address] [place], [address] Neutrophils/100 WBC (Bld) 71.9 % High 47-70 [facility] Comment on above: Performed By: #### B TS, L3890.6301, L509.4006, L100.0100, L3400.1990, L501.9985, L3400.1980, L509.8002, L3890.6006, L3890.6102 #### [facility] [address] [place], [address] Nucleated RBC (Bld) [#/Vol] 0 10*3/uL Normal 0-5 [facility] Comment on above: Performed By: #### B TS, L3890.6301, L509.4006, L100.0100, L3400.1990, L501.9985, L3400.1980, L509.8002, L3890.6006, L3890.6102 #### [facility] [address] [place], [address] Platelet mean volume (Bld) [Entitic vol] 8.9 fL Normal 6.2-12.0 [facility] Comment on above: Performed By: #### B TS, L3890.6301, L509.4006, L100.0100, L3400.1990, L501.9985, L3400.1980, L509.8002, L3890.6006, L3890.6102 #### [facility] [address] [place] [place], [address] Platelets (Bld) [#/Vol] 318 10*3/uL Normal 150-450 [facility] Comment on above: Performed By: #### B TS, L3890.6301, L509.4006, L100.0100, L3400.1989, L501.9985, L3400.1980, L509.8002, L3890.6006, L3890.6102 #### [facility] [address] [place], [address] RBC (Bld) [#/Vol] 3.99 10*6/uL Low 4.2-5.4 [facility] Comment on above: Performed By: #### B TS, L3890.6301, L509.4006, L100.0100, L3400.1990, L501.9985, L3400.1980, L509.8002, L3890.6006, L3890.6102 #### [facility] [address] [place], [address] RDW SD 40.8 fl Normal 35.1-43.9 [facility] Comment on above: Performed By: #### B TS, L3890.6301, L509.4006, L100.0100, L3400.1990, L501.9985, L3400.1980, L509.8002, L3890.6006, L3890.6102 #### [facility] [address] [place], [address] WBC (Bld) [#/Vol] 12.3 10*3/uL High 4.4-11.0 [facility] Comment on above: Performed By: #### B TS, L3890.6301, L509.4006, L100.0100, L3400.1990, L501.9985, L3400.1980, L509.8002, L3890.6006, L3890.6102 #### [facility] [address] [place], [address] Eosinophil percentageOrdered By: Mary Shea on 03-13-2025 Eosinophils/100 WBC (Bld) 2.0 % 0-5 [facility] Erythrocyte distribution wid th ratioOrdered By: Mary Shea on 03-13-2025 Erythrocyte distribution width (RBC) [Ratio] 12.3 % 11.6-14.6 [facility] Erythrocyte distribution wid th standard deviationOrdered By: Mary Shea on 03-13-2025 Erythrocyte distribution width (RBC) [Ratio] 40.8 fl 35.1-43.9 [facility] HIVon 03-13-2025 HIV Non-Reactive Normal Nonreactive [facility] Comment on above: Result Comment: Non- Reactive Reactive Repeatedly reactive samples must be confirmed according to CDC recommended confirmatory algorithms. The subresults for either HIVAG or AHIV can be used as an aid in the selection of the confirmation algorithm for reactive samples. Send out specimens with Reactive results to [facility] for confirmation. Order the HIV antibody detection and differentiation: [id number] Performed By: #### L 505.5000, M100.2200, L7000.1800, L7400.0280 #### [facility] [address] [place], [address] Hematocrit Auto (Bld) [Volum e fraction]Ordered By: Mary Shea on 03-13-2025 Hematocrit (Bld) [Volume fraction] 36.1 % Low 37-47 [facility] Hemoglobin A1con 03-13-2025 HbA1c (Bld) [Mass fraction] 4.8 % Normal <=5.6 [facility] Comment on above: Result Comment: Norm al < 5.7 % Prediabetic 5.7 - 6.4 % Diabetic >or= 6.5 % Please note range changes. Performed By: #### B TS, L3890.6301, L509.4006, L100.0100, L3400.1990, L501.9985, L3400.1980, L509.8002, L3890.6006, L3890.6102 #### [facility] [address] [place], [address] Hemoglobin A1c percentageOrd ered By: Mary Monse on 03-13-2025 HbA1c (Bld) [Mass fraction] 4.8 % <5.7 [facility] Comment on above: Normal < 5.7 % Predi abetic 5.7 - 6.4 % Diabetic >or= 6.5 % Please note range changes. Hemoglobin measurementOrdere d By: Marycoy Shea on 03-13-2025 Hemoglobin (Bld) [Mass/Vol] 12.4 g/dL 12.0-15.0 [facility] Hepatitis C Antibodyon 03-13 Hepatitis C Ab Non-Reactive Normal Nonreactive [facility] Comment on above: Result Comment: Reac tive: Presumptive evidence of antibodies to HCV. Follow CDC recommendations for supplemental testing. Non-Reactive: Antibodies to HCV were not detected; does not exclude the possibility of exposure to HCV Reactive Results are presumptive evidence of antibodies to HCV. Follow CDC recommendations for supplemental testing. Order confirmation testing: HCV Quant by PCR testing - HCVPCR #[id number] Non Reactive: < 0.8 Equivocal: >/= 0.8 to < 1.0 Reactive: >/= 1.0 The CDC requires that a reactive/equivocal HCV antibody result be sent out for confirmation. HCV Quant by PCR testing. Performed By: #### L 505.5000, M100.2200, L7000.1800, L7400.0280 #### [facility] [address] [place], [place], [id number] Immature granulocytes/100 WB C Auto (Bld)Ordered By: Mary Shea on 03-13-2025 Immature granulocytes/100 WBC (Bld) 0.500 % 0.0-0.9 [facility] Comment on above: IG% - Immature Granu locytes (promyelocytes, myelocytes and metamyelocytes) > 1% indicates that a LEFT SHIFT is Present. L3890.6102on 03-13-2025 HEP B Surf Ag Non-Reactive Normal Nonreactive [facility] Comment on above: Result Comment: Reac tive: Presumptive evidence of HBV. Repeatedly reactive samples must be confirmed using a neutralization test ([employer] HBsAg Confirmatory Test) Non-Reactive: HBsAg not detected; does not exclude the possibility of exposure to HBV Performed By: #### L 505.5000, M100.2200, L7000.1800, L7400.0280 #### [facility] [address] [place], [address] L509.4006on 03-13-2025 Rubella IgG Non-Reactive Normal Nonreactive [facility] Comment on above: Result Comment: Anti body Result: Interpretation Non-Reactive: Non-Immune Reactive: Immune The following results were obtained with the [employer] Rubella IgG assay. Results from assays of other manufacturers cannot be used interchangeably. Performed By: #### L 505.5000, M100.2200, L7000.1800, L7400.0280 #### [facility] [address] [place], [place], [id number] Laboratory - Chemistry and C hemistry - challengeOrdered By: Angy Kahn on 03-13-2025 Glucose Ql (U) Negative [facility] - Microbiology an d Antimicrobial susceptibilityOrdered By: Mary Shea on 03-13-2025 HBV surface Ag Ql (S) Non-Reactive Nonreactive [facility] Comment on above: Reactive: Presumptiv e evidence of HBV. Repeatedly reactive samples must be confirmed using a neutralization test ([employer] HBsAg Confirmatory Test)Non-Reactive: HBsAg not detected; does not exclude the possibility of exposure to HBV Laboratory - UrinalysisOrder ed By: Angy Kahn on 03-13-2025 Protein Ql (U) Negative [facility] MCV (mean corpuscular volume ) determinationOrdered By: Mary Shea on 03-13-2025 MCV (RBC) [Entitic vol] 90.5 fL 81-99 [facility] Mean corpuscular hemoglobin (MCH) determinationOrdered By: Mary Shea on 03-13-2025 MCH (RBC) [Entitic mass] 31.1 pg 27.0-32.0 [facility] Mean corpuscular hemoglobin concentration (MCHC) determinationOrdered By: Mary Shae on 03-13-2025 MCHC (RBC) [Mass/Vol] 34.3 g/dL 32-36 [facility] Mean platelet volume determi nationOrdered By: Mary Shea on 03-13-2025 Platelet mean volume (Bld) [Entitic vol] 8.9 fL 6.2-12.0 [facility] Monocyte percentageOrdered B y: Mary Shea on 03-13-2025 Monocytes/100 WBC (Bld) 7.5 % 0-10 [facility] Neutrophil percentageOrdered By: Mary Shea on 03-13-2025 Neutrophils/100 WBC (Bld) 71.9 % High 47-70 [facility] No Panel InformationOrdered By: Mary Shea on 03-13-2025 HIV (1&2) Antibody Non-Reactive Nonreactive [facility] Comment on above: Non-ReactiveReactive Repeatedly reactive samples must be confirmed according to CDC recommended confirmatory algorithms. The subresults for either HIVAG or AHIV can be used as an aid in the selection of the confirmation algorithm for reactive samples.Send out specimens with Reactive results to [facility] for confirmation.Order the HIV antibody detection and differentiation: #[id number] Toxoplasma Comment Comment . [facility] Comment on above: It is presumed the p atient has not been infected with andis not undergoing an acute infection with Toxoplasma. Ifsymptoms persist, submit a new specimen after three weeks.Performed at: [address] [id number] Director: Jorge Gregg PhD, Phone: [phone] Nucleated red blood cell per centageOrdered By: Mary Shea on 03-13-2025 Nucleated RBC/100 WBC (Bld) [Ratio] 0 % 0-5 [facility] Paper Twister Tender Office Visit Reporton 03-13-2025 Paper Twister Tender Office Visit Report [facility] [address], [address] [place] [address] OFFICE VISIT Date of Service: 03/13/25 MR#: [id number] Acct: [id number] Name: KEIRA AVILES Rep #: [id number] : 1990 Provider: CHARLES amador Age/Sex: 34/F Location[facility] Status: Signed Intake Vital Signs 07/25/15 07:43 02/16/25 11:46 03/13/25 08:45 Height 5 ft 2 in 5 ft 1 in 5 ft 1 in Weight: 168 lb 6 oz BMI 31.8 BP 106/71 Intake Visit Reasons: 12wk ob Chief Complaint: 12 Week OB Firewall Administrator Required: No Is patient in pain?: No [...] mg-folate no.1 1 mg-dha 300 mg capsule (PNV-[place]) fosfomycin tromethamine 3 gram 3 g PO ONCE #1 ea 02/19/25 5 Rx oral packet Last Menstrual Period: 12/14/24 Zika: Zika virus screening: Negative : Yes PFSH PFSH Medical History Seasonal allergies Surgical History [place] teeth extracted Family History Sister MTHFR gene mutation Half sister Spina bifida Mother MTHFR gene mutation Arthritis Hypertension Addiction to drug Grandmother Arthritis Maternal Alcoholism maternal Kidney disease, Onset Age: 32 kidney removed Grandfather Arthritis Maternal Diabetes Maternal Father Alcoholism Social History adopted: No household members: family housing: house current occupational status: employed 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 Discussed (more content not included)... Normal [facility] Platelet countOrdered By: Yadiel Shea on 03-13-2025 Platelets (Bld) [#/Vol] 318 10*3/uL 150-450 [facility] RBC Auto (Bld) [#/Vol]Ordere d By: Mary Monse on 03-13-2025 RBC (Bld) [#/Vol] 3.99 10*6/uL Low 4.2-5.4 [facility] Serum Toxoplasma gondii IgG antibody assay (units/volume)Ordered By: Mary Monse on 03-13-2025 T. gondii IgG Qn (S) < 3.0 IU/mL 0.0-7.1 [facility] Comment on above: Negative <7.2 Equivo danis 7.2 - 8.7 Positive >8.7 Serum Toxoplasma gondii IgM antibody assay by immunoassay (units/volume)Ordered By: Mary Monse on 03-13-2025 T. gondii IgM IA Qn (S) < 3.0 AU/mL 0.0-7.9 [facility] Comment on above: Negative <8.0 Equivo danis 8.0 - 9.9 Positive >9.9 Syphilis Antibodieson 2024 Syphilis Abs Non-Reactive Normal Nonreactive [facility] Comment on above: Performed By: #### B TS, L3890.6301, L509.4006, L100.0100, L3400.1989, L501.9985, L3400.1980, L509.8002, L3890.6006, L3890.6102 #### [facility] [address] [place], [place], [id number] Type AND Screenon 03-13-2025 Ab SCREEN GEL Negative Normal [facility] Comment on above: Order Comment: PN Performed By: #### B TS, L3890.6301, L509.4006, L100.0100, L3400.1989, L501.9985, L3400.1980, L509.8002, L3890.6006, L3890.6102 #### [facility] [address] [place], [address] White blood cell (WBC) count Ordered By: Mary Shea on 03-13-2025 WBC (Bld) [#/Vol] 12.3 10*3/uL High 4.4-11.0 [facility] Urine cultureOrdered By: Mahamed Kahn on 03-05-2025 Bacteria identified Cx Nom (U) Myroides spp Abnormal [facility] PAP IG HPV APTIMA 16/18,45on 02-20-2025 ADEQ Comment Normal . [facility] Comment on above: Order Comment: Speci men Comment: [id number] Specimen Comment: Source.............Cervix Specimen Comment: LMP / Prev Treat...[id number] Specimen Comment: No. of containers..01 ThinPrep Vial Result Comment: Sati sfactory for evaluation. Endocervical and/or squamous metaplastic cells (endocervical component) are present. Performed By: #### L 505.5000, M100.2200, L7000.1800, L7400.0280 #### [facility] [address] [place], [address] COMM . Normal . [facility] Comment on above: Order Comment: Speci men Comment: [id number] Specimen Comment: Source.............Cervix Specimen Comment: LMP / Prev Treat...[id number] Specimen Comment: No. of containers..01 ThinPrep Vial Performed By: #### L 505.5000, M100.2200, L7000.1800, L7400.0280 #### [facility] [address] [place], [address] COMMENT Comment Normal . [facility] Comment on above: Order Comment: Speci men Comment: [id number] Specimen Comment: Source.............Cervix Specimen Comment: LMP / Prev Treat...[id number] Specimen Comment: No. of containers..01 ThinPrep Vial Result Comment: This liquid based ThinPrep(R) pap test was screened with the use of an image guided system. Performed By: #### L 505.5000, M100.2200, L7000.1800, L7400.0280 #### [facility] [address] [place], [address] DIAG Comment Normal . [facility] Comment on above: Order Comment: Speci men Comment: [id number] Specimen Comment: Source.............Cervix Specimen Comment: LMP / Prev Treat...[id number] Specimen Comment: No. of containers..01 ThinPrep Vial Result Comment: NEGA TIVE FOR INTRAEPITHELIAL LESION OR MALIGNANCY. Performed By: #### L 505.5000, M100.2200, L7000.1800, L7400.0280 #### [facility] [address] [place], [address] HPV APTIMA, HR Negative Normal Negative [facility] Comment on above: Order Comment: Speci men Comment: [id number] Specimen Comment: Source.............Cervix Specimen Comment: LMP / Prev Treat...[id number] Specimen Comment: No. of containers..01 ThinPrep Vial Result Comment: This nucleic acid amplification test detects fourteen high- risk HPV types (16,18,31,33,35,39,45,51,52,56,58,59,66,68) without differentiation. Performed By: #### L 505.5000, M100.2200, L7000.1800, L7400.0280 #### [facility] [address] [place], [address] HPV Julia Rfx Comment Normal . [facility] Comment on above: Order Comment: Speci men Comment: [id number] Specimen Comment: Source.............Cervix Specimen Comment: LMP / Prev Treat...[id number] Specimen Comment: No. of containers..01 ThinPrep Vial Result Comment: Shara camargo not met, HPV Genotype not performed. Performed at: - [facility] [id number] Broaching Machine Repairer: Lauren Mann MD, Phone: [phone] Performed at: =G - [facility] [address] [id number] Broaching Machine Repairer: Lauren Mann MD, Phone: [phone] Performed By: #### L 505.5000, M100.2200, L7000.1800, L7400.0280 #### [facility] [address] [place], [address] PAPSMR Comment Normal . [facility] Comment on above: Order Comment: Speci men Comment: [id number] Specimen Comment: Source.............Cervix Specimen Comment: LMP / Prev Treat...[id number] Specimen Comment: No. of containers..01 ThinPrep Vial [...] #### L 505.5000, M100.2200, L7000.1800, L7400.0280 #### [facility] [address] [place], [address] PERFORM Comment Normal . [facility] Comment on above: Order Comment: Speci men Comment: [id number] Specimen Comment: Source.............Cervix Specimen Comment: LMP / Prev Treat...[id number] Specimen Comment: No. of containers..01 ThinPrep Vial Result Comment: Denae Monk, National Recruiter (ASCP) Performed By: #### L 505.5000, M100.2200, L7000.1800, L7400.0280 #### [facility] [address] [place], [address] Chlamydia/GC TUTU aptimaon CHLAMY,NUC ACID Negative Normal Negative [facility] Comment on above: Performed By: #### L 505.5000, M100.2200, L7000.1800, L7400.0280 #### [facility] [address] [place], [address] GC BY NUC ACID Negative Normal Negative [facility] Comment on above: Result Comment: Perf ormed at: =G - [facility] [address] [id number] Broaching Machine Repairer: Lauren Mann MD, Phone: [phone] Performed By: #### L 505.5000, M100.2200, L7000.1800, L7400.0280 #### [facility] [address] [place], [place], [address] Urine Cultureon 02-19-2025 [facility] Urine Culture Urine Culture Myroides spp [place] Count 50,000-80,000 Mixed Gram Positive Organisms Mixed [...] TMP SMX Islt RUDY 40 S Normal [facility] Comment on above: Performed By: #### L 505.5000, M100.2200, L7000.1800, L7400.0280 #### [facility] [place], [address] Amphetamine detection with 1 000 ng/mL as cutoffOrdered By: Mary Shea on 02-16-2025 Amphetamines Screen method >1000 ng/mL Ql (U) Negative < 200 ng/mL [facility] Cervical or vaginal specimen microscopic examination by liquid based cytology (reportOrdered By: Mary Shea on 02-16-2025 Cytology report Cyto stain.thin prep Doc (Cvx/Vag) Comment . [facility] Comment on above: Criteria not met, HP V Genotype not performed.Performed at: - [address] [id number] Director: Lauren Mann MD, Phone: [phone] at: =[facility] [id number] Director: Lauren Mann MD, Phone: [phone] Cervical or vagninal specime n microscopic examination by cytology stain (reported asOrdered By: Mary Shea on 02-16-2025 Cytology report Cyto stain Doc (Cvx/Vag) Comment . [facility] Comment on above: The Pap smear is [...] rRNA TUTU+probe Ql (Unsp spec) Negative Negative [facility] Detection in cervical specim en of any of human papilloma virus (HPV) 16, 18, 31, 33,Ordered By: Mary Shea on 02-16-2025 HPV 16+18+31+33+35+39+45+51 +52+56+58+59+66+68 DNA Probe+sig amp Ql (Cvx) Negative Negative [facility] Comment on above: This nucleic acid am plification test detects fourteen high-risk HPV types (16,18,31,33,35,39,45,51,52,56,58,59,66,68)without differentiation. Laboratory - CytologyOrdered By: Mary Shea on 02-16-2025 National Recruiter Cyto stain Nom (Cvx/Vag) [ID] Comment . [facility] Comment on above: Denae Monk, Cyto logist (ASCP) Laboratory - Miscellaneous t estsOrdered By: Mary Shea on 02-16-2025 Service comment (Unsp spec) [Interp] . . [facility] Neisseria gonorrhoeae nuclei c acid detection by amplified probe techniqueOrdered By: Mary Shea on 02-16-2025 N. gonorrhoeae DNA TUTU+probe Ql (Unsp spec) Negative Negative [facility] Comment on above: Performed at: =[address] [id number] Director: Lauren Mann MD, Phone: [phone] No Panel InformationOrdered By: Mary Shea on 02-16-2025 Pap Smear Specimen Adequacy Comment . [facility] Comment on above: Satisfactory for paolo luation. Endocervical and/or squamous metaplasticcells (endocervical component) are present. Urine Buprenorphine Qualitative Negative < 200 ng/mL [facility] Urine Oxycodone Screen Negative < 100 ng/mL [facility] Paper Twister Tender Office Visit Reporton 02-16-2025 Paper Twister Tender Office Visit Report [facility] [address], [address] [place] [address] OFFICE VISIT Date of Service: 02/16/25 MR#: [id number] Acct: [id number] Name: KEIRA AVILES Rep #: [id number] : 1990 Provider: Dr. Mary Roberson, Age/Sex: 34/F Location: [facility] Status: Signed Intake Vital Signs 07/25/15 07:43 01/30/25 10:13 02/16/25 11:43 02/16/25 11:46 Height 5 ft 2 in 5 ft 1 in 5 ft 1 in 5 ft 1 in Weight: 163 lb 6 oz 170 lb 8 oz BMI 30.9 32.2 BP 116/64 109/68 Intake Visit Reasons: New OB, LMP 12/14, SANDY 09/20/25 Firewall Administrator Required: No Is patient in pain?: No [...] mg-folate no.1 1 mg-dha 300 mg capsule (PNV-[place]) Last Menstrual Period: 12/14/24 Zika: Zika virus screening: Negative : Yes PFSH PFSH Medical History Seasonal allergies Surgical History [place] teeth extracted Family History Sister MTHFR gene mutation Half sister Spina bifida Mother MTHFR gene mutation Arthritis Hypertension Addiction to drug Grandmother Arthritis Maternal Alcoholism maternal Kidney disease, Onset Age: 32 kidney removed Grandfather Arthritis Maternal Diabetes Maternal Father Alcoholism Social History adopted: No household members: family housing: house current occupational status: employed 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 Normal [facility] Quantitative urine opiates m easurementOrdered By: Mary Shea on 02-16-2025 Opiates Ql (U) Negative < 300 ng/mL [facility] Screening urine fentanyl naresh surementOrdered By: Mary Shea on 02-16-2025 fentaNYL Screen Ql (U) Negative [facility] Urine Drug Screen (VISTA)on 02-16-2025 AMPHETAMINES Negative Normal <1000 ng/mL [facility] Comment on above: Order Comment: UNK Performed By: #### L 505.5000, M100.2200, L7000.1800, L7400.0280 #### [facility] [address] [place], [place], [address] BARBITIURATES Negative Normal < 200 ng/mL [facility] Comment on above: Order Comment: UNK Performed By: #### L 505.5000, M100.2200, L7000.1800, L7400.0280 #### [facility] [address] [place], [address] BENZODIAZIPINE Negative Normal < 200 ng/mL [facility] Comment on above: Order Comment: UNK Performed By: #### L 505.5000, M100.2200, L7000.1800, L7400.0280 #### [facility] [address] [place], [address] BUP Ur Drug Scr Negative Normal < 200 ng/mL [facility] Comment on above: Order Comment: UNK Performed By: #### L 505.5000, M100.2200, L7000.1800, L7400.0280 #### [facility] [address] [place], [address] COCAINE Negative Normal < 300 ng/mL [facility] Comment on above: Order Comment: UNK Performed By: #### L 505.5000, M100.2200, L7000.1800, L7400.0280 #### [facility] [address] [place], [address] Fentanyl Negative Normal [facility] Comment on above: Order Comment: UNK Performed By: #### L 505.5000, M100.2200, L7000.1800, L7400.0280 #### [facility] [address] [place], [address] METHADONE Negative Normal < 300 ng/mL [facility] Comment on above: Order Comment: UNK Performed By: #### L 505.5000, M100.2200, L7000.1800, L7400.0280 #### [facility] [address] [place], [address] OPIATES Negative Normal < 300 ng/mL [facility] Comment on above: Order Comment: UNK Performed By: #### L 505.5000, M100.2200, L7000.1800, L7400.0280 #### [facility] [address] [place], [address] OXYCODONE Negative Normal < 100 ng/mL [facility] Comment on above: Order Comment: UNK Performed By: #### L 505.5000, M100.2200, L7000.1800, L7400.0280 #### [facility] [address] [place], [address] PCP Negative Normal < 25 ng/mL [facility] Comment on above: Order Comment: UNK Performed By: #### L 505.5000, M100.2200, L7000.1800, L7400.0280 #### [facility] [address] [place], [address] THC Negative Normal < 50 ng/mL [facility] Comment on above: Order Comment: UNK Performed By: #### L 505.5000, M100.2200, L7000.1800, L7400.0280 #### [facility] [address] [place], [address] Urine benzodiazepine levelOr dered By: Mary Shea on 02-16-2025 Benzodiazepines Ql (U) Negative < 200 ng/mL [facility] Urine cocaine levelOrdered B y: Mary Shea on 02-16-2025 Cocaine Ql (U) Negative < 300 ng/mL [facility] Urine cultureOrdered By: Lizbeth Shea on 02-16-2025 Bacteria identified Cx Nom (U) Myroides spp Abnormal [facility] Bacteria identified Cx Nom (U) Positive Abnormal [facility] Urine hwzez-0-lnztgktofbbirv abinol (THC) measurementOrdered By: Mary Shea on 02-16-2025 Cannabinoids Screen Ql (U) Negative < 50 ng/mL [facility] Urine phencyclidine (PCP) de tectionOrdered By: Mary Shea on 02-16-2025 Phencyclidine Ql (U) Negative < 25 ng/mL [facility] Serum human chorionic gonado tropin detection for pregnancyOrdered By: Mary Shea on 02-03-2025 HCG ( [place] [address] mIU/mL High <9 [facility] Comment on above: Gestational Age0.2-1 Week: 5-50 mIU/mL1-2 Weeks: 50-500 mIU/mL2-3 Weeks: 100-5000 mIU/mL3-4 Weeks: 500-10,000 mIU/mL4-5 Weeks:1000-50,000 mIU/mL5-6 Weeks: 10,000-100,000 mIU/mL6-8 Weeks: 15,000-200,000 mIU/mL2-3 Months:10,000-100,000 mIU/mL hCG Titer Quant., Serumon HCG QUANT. 31804 mIU/mL High <9 [facility] Comment on above: Result Comment: Gest ational Age 0.2-1 Week: 5-50 mIU/mL 1-2 Weeks: 50-500 mIU/mL 2-3 Weeks: 100-5000 mIU/mL 3-4 Weeks: 500-10,000 mIU/mL 4-5 Weeks:1000-50,000 mIU/mL 5-6 Weeks: 10,000-100,000 mIU/mL 6-8 Weeks: 15,000-200,000 mIU/mL 2-3 Months:10,000-100,000 mIU/mL Performed By: #### L 505.5000, M100.2200, L7000.1800, L7400.0280 #### [facility] [address] [place], [place], [id number] Serum human chorionic gonado tropin detection for pregnancyOrdered By: Mary Shea on 02-01-2025 HCG ( test) Ql 9010 mIU/mL High <9 [facility] Comment on above: Gestational Age0.2-1 Week: 5-50 mIU/mL1-2 Weeks: 50-500 mIU/mL2-3 Weeks: 100-5000 mIU/mL3-4 Weeks: 500-10,000 mIU/mL4-5 Weeks:1000-50,000 mIU/mL5-6 Weeks: 10,000-100,000 mIU/mL6-8 Weeks: 15,000-200,000 mIU/mL2-3 Months:10,000-100,000 mIU/mL hCG Titer Quant., Serumon HCG QUANT. 9010 mIU/mL High <9 non-preg [facility] Comment on above: Result Comment: Gest ational Age 0.2-1 Week: 5-50 mIU/mL 1-2 Weeks: 50-500 mIU/mL 2-3 Weeks: 100-5000 mIU/mL 3-4 Weeks: 500-10,000 mIU/mL 4-5 Weeks:1000-50,000 mIU/mL 5-6 Weeks: 10,000-100,000 mIU/mL 6-8 Weeks: 15,000-200,000 mIU/mL 2-3 Months:10,000-100,000 mIU/mL Performed By: #### L 700.8000 #### [facility] [address] [place], [address] Laboratory - Chemistry and C hemistry - challengeOrdered By: Mary Shea on 01-30-2025 HCG ( test) Ql (U) Positive [facility] Office Visit Reporton 2024 Office Visit Report [facility] [address] [place] [address] OFFICE VISIT Date of Service: 02/16/25 MR#: [id number] Acct: [id number] Patient: KEIRA AVILES Rep #: [id number] : 1990 Provider: Dr. Mary Roberson DO Age/Sex: 34/F Location: [facility] Status: Signed Intake Vital Signs 07/25/15 07:43 01/30/25 10:13 Height 5 ft 2 in 5 ft 1 in Weight: 163 lb 6 oz BMI 30.9 BP 116/64 Intake Visit Reasons: New OB, LMP 12/14, SANDY 09/20/25, PNOB, Confirmation of Firewall Administrator Required: No Accompanied by: Significant Other Is [...] mg-folate no.1 1 mg-dha 300 mg capsule (PNV-[place]) Is last menstrual period known: Yes Last [...] Mckeon Signature: Date (if applicable) [facility] (FAMPWS ) KEIRA AVILES ([id number]) 1990 F Date Time Provider Department 04/04/19 9:00 AM VIOLETA PHILLIP FAMPWS During your visit today, we recorded the following information about you: Temperature Pulse Respiration Blood pressure 100 degrees 86/minute 16/minute 102/72 Weight Height Last Period 75.3 kg 1.562 m 03/22/19 Violeta Phillip, MSN COMMUNITY PROGRAM ASSISTANT.VARSITY BASEBALL COACH 04/04/2019 11:04 AM Addendum Reason for Visit [...] lunch and limiting sugared snacks. Follows with [facility] for DATA VISUALIZATION DEVELOPER care, appointment in November. Health Maintenance PAP [...] HCL 25 MG TABLET Violeta Phillip, MSN COMMUNITY PROGRAM ASSISTANT.VARSITY BASEBALL COACH Violeta Phillip, MSN COMMUNITY PROGRAM ASSISTANT.VARSITY BASEBALL COACH 04/04/2019 9:43 AM Signed 1. Recommend Vitamin D 2000 IU daily 2. When you have your DATA VISUALIZATION DEVELOPER exam, if pap smear is done then [...] IU daily 2. When you have your DATA VISUALIZATION DEVELOPER exam, if pap smear is done then [...] Somewhat difficult Encounter Status:Closed by VIOLETA PHILLIP VARSITY BASEBALL COACH on 04/04/19 [facility] PROGRESSon 04-04-2019 PROGRESS HNO ID: [id number] Author: Violeta Phillip Service: ? Author Type: [...] lunch and limiting sugared snacks. Follows with [facility] for DATA VISUALIZATION DEVELOPER care, appointment in November. Health Maintenance PAP [...] HCL 25 MG TABLET Violeta Phillip, MSN COMMUNITY PROGRAM ASSISTANT.VARSITY BASEBALL COACH Normal [facility] Vital Signs Date Time Vital Sign Value Performing Clinician Albin cooper 07-05-2025 10:45-0400 Body height 154.94 cm No Primary Care Physician [facility] 07-05-2025 10:43-0400 Body mass index (BMI) [Ratio] 38 kg/m2 No Primary Care Physician [facility] 07-05-2025 10:43-0400 Body weight 91.34 kg No Primary Care Physician [facility] 07-05-2025 10:43-0400 Diastolic blood pressure 80 mm[Hg] No Primary Care Physician [facility] 07-05-2025 10:43-0400 Systolic blood pressure 125 mm[Hg] No Primary Care Physician [facility] 06-06-2025 08:47-0400 Body height 154.94 cm No Primary Care Physician [facility] 06-06-2025 08:47-0400 Body mass index (BMI) [Ratio] 36.1 kg/m2 No Primary Care Physician [facility] 06-06-2025 08:47-0400 Body weight 86.86 kg No Primary Care Physician [facility] 06-06-2025 08:47-0400 Diastolic blood pressure 79 mm[Hg] No Primary Care Physician [facility] 06-06-2025 08:47-0400 Systolic blood pressure 120 mm[Hg] No Primary Care Physician [facility] 05-10-2025 09:41-0400 Body height 154.94 cm No Primary Care Physician [facility] 05-10-2025 09:41-0400 Body mass index (BMI) [Ratio] 34.9 kg/m2 No Primary Care Physician [facility] 05-10-2025 09:41-0400 Body weight 83.91 kg No Primary Care Physician [facility] 05-10-2025 09:41-0400 Diastolic blood pressure 74 mm[Hg] No Primary Care Physician [facility] 05-10-2025 09:41-0400 Systolic blood pressure 123 mm[Hg] No Primary Care Physician [facility] 04-09-2025 11:10-0400 Body height 154.94 cm No Primary Care Physician [facility] 04-09-2025 11:10-0400 Body mass index (BMI) [Ratio] 32.3 kg/m2 No Primary Care Physician [facility] 04-09-2025 11:10-0400 Body weight 77.67 kg No Primary Care Physician [facility] 04-09-2025 11:10-0400 Diastolic blood pressure 77 mm[Hg] No Primary Care Physician [facility] 04-09-2025 11:10-0400 Systolic blood pressure 126 mm[Hg] No Primary Care Physician [facility] 03-13-2025 08:45-0400 Body height 154.94 cm No Primary Care Physician [facility] 03-13-2025 08:45-0400 Body mass index (BMI) [Ratio] 31.8 kg/m2 No Primary Care Physician [facility] 03-13-2025 08:45-0400 Body weight 76.37 kg No Primary Care Physician [facility] 03-13-2025 08:45-0400 Diastolic blood pressure 71 mm[Hg] No Primary Care Physician [facility] 03-13-2025 08:45-0400 Systolic blood pressure 106 mm[Hg] No Primary Care Physician [facility] 02-16-2025 11:46-0400 Body height 154.94 cm No Primary Care Physician [facility] 02-16-2025 11:43-0400 Body mass index (BMI) [Ratio] 32.2 kg/m2 No Primary Care Physician [facility] 02-16-2025 11:43-0400 Body weight 77.33 kg No Primary Care Physician [facility] 02-16-2025 11:43-0400 Diastolic blood pressure 68 mm[Hg] No Primary Care Physician [facility] 02-16-2025 11:43-0400 Systolic blood pressure 109 mm[Hg] No Primary Care Physician [facility] Encounters Encounter Date Encounter Type Care Provider Facility Start: 07-31-2025 ambulatory No Primary Car e Physician Facility:[facility] Start: 07-30-2025 End: 07-30-2025 ambulatory No Primary Care Physician Facility[facility] Start: 07-19-2025 ambulatory No Primary Car e Physician Facility:[facility] Start: 07-19-2025 End: 07-19-2025 ambulatory No Primary Care Physician Facility:[facility] Start: 07-05-2025 End: 07-05-2025 ambulatory No Primary Care Physician -[facility] Start: 07-05-2025 End: 07-05-[address] Mary Baker DO -[facility] Work Phone: Start: 07-05-2025 End: 07-05-2025 ambulatory No Primary Care Physician Facility:[facility] Start: 06-06-2025 End: 06-06-2025 Patient encounter procedure Angy SOTO -[facility] Work Phone: Start: 06-06-2025 End: 06-06-2025 ambulatory No Primary Care Physician -[facility] Start: 05-10-2025 End: 05-10-[address] Amira Alvarado MD -[facility] Work Phone: Start: 05-10-2025 End: 05-10-2025 ambulatory No Primary Care Physician -[facility] Start: 05-09-2025 End: 05-09-2025 Subsequent hospital visit by physician Sylwia Rodriguez MD Work Phone: [facility] Comment on above: Urinary tract infect ion without hematuria, site unspecified Start: 05-09-2025 End: 05-09-2025 ambulatory SYLWIA RODRIGUEZ [facility] Start: 05-09-2025 End: 05-09-2025 ambulatory ALEAH M JESSE [facility] Start: 04-09-2025 End: 04-09-2025 Patient encounter procedure Violeta Nair CNM -[facility] Work Phone: Start: 04-09-2025 End: 04-09-2025 ambulatory No Primary Care Physician -[facility] Start: 03-13-2025 End: 03-13-2025 Patient encounter procedure Angy Kahn NP-C -[facility] Work Phone: Start: 03-13-2025 End: 03-13-2025 ambulatory No Primary Care Physician [facility] Work Phone: Start: 03-13-2025 End: 03-13-2025 ambulatory No Primary Care Physician Facility:[facility] Start: 03-05-2025 End: 03-05-2025 ambulatory No Primary Care Physician [facility] Work Phone: Start: 03-05-2025 End: 03-05-2025 Patient encounter procedure Angy Kahn NP-C -Laboratory Work Phone: Start: 03-05-2025 End: 03-05-2025 ambulatory No Primary Care Physician Facility:[facility] Start: 02-16-2025 End: 02-16-2025 ambulatory No Primary Care Physician [facility] Work Phone: Start: 02-16-2025 End: 02-16-[address] Mary Baker DO -Laboratory Specimen Work Phone: Start: 02-16-2025 End: 02-16-[address] Mary Baker DO -[facility] Work Phone: Start: 02-16-2025 End: 02-16-2025 ambulatory No Primary Care Physician [facility] Work Phone: Start: 02-16-2025 End: 02-16-2025 ambulatory Mary Baker Facility:[facility] Start: 02-03-2025 End: 02-03-[address] Mary Baker DO -Laboratory Work Phone: Start: 02-03-2025 End: 02-03-2025 ambulatory No Primary Care Physician Facility:[facility] Start: 02-01-2025 End: 02-01-2025 ambulatory No Primary Care Physician [facility] Work Phone: Start: 02-01-2025 End: 02-01-[address] Mary Baker DO -Laboratory Work Phone: Start: 02-01-2025 End: 02-01-2025 ambulatory No Primary Care Physician Facility:[facility] Start: 01-30-2025 End: 01-30-[address] Amira Alvarado MD -[facility] Work Phone: Start: 01-30-2025 End: 01-30-2025 ambulatory No Primary Care Physician [facility] Work Phone: Procedures Date Procedure Procedure [...] HCV Quant by PCR testing - HCVPCR [id number] Non Reactive: < 0.8 Equivocal: >/= 0.8 to < 1.0 Reactive: >/= 1.0The CDC requires that a reactive/equivocal HCV antibody result be sent out for confirmation. HCV Quant by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
[2025-09-14 12:31] LABS: Glucose Challenge Gest 1H 50g 103 mg/dL (70-140)
== END | disposition home or self-care (01) ==
PROVIDERS: Referring Provider Obstetrics & Gynecology; Visit Provider Obstetrics & Gynecology
DX: Z13.1 Encounter for screening for diabetes mellitus (principal)
CPT/HCPCS: 36415; 82950

== ENCOUNTER 2025-09-19 11:07 | Outpatient (CLI) | payer OTHER, SELFPAY ==
[2025-09-19] VITALS (10 sets, daily range): BP systolic 101–109; BP diastolic 51–77; PULSE 101–121; RESP 16–18; TEMP 36.6–36.8; O2SAT 97–98; BMI 39.7
--- NOTE | 2025-09-19 11:12 | US_ITS ---
PROCEDURE: OB BIOPHYSICAL PROF W/O NST 09/19/2025 REASON FOR EXAM: WELL-BEING TECHNIQUE: Procedure Code: [id number] Modality: US Procedure: OB BIOPHYSICAL PROF W/O NST COMPARISON: September 04, 2025 FINDINGS Number: 1 Position: Cephalic Placental Position: Anterior. Grade 2. Placental Abnormalities: None. ESTIMATED GESTATIONAL AGE: age by LMP: 38 weeks, 5 days ESTIMATED DATE OF DELIVERY: By LMP: September 28, 2025 BIOPHYSICAL ASSESSMENT: Amniotic Fluid Volume: Subjectively normal. Amniotic Fluid Index: 16.0 (8-24 cm normal range). Maximal vertical pocket 6.8 cm. Cardiac Motion: 147 (average) Trunk and Limb Motion: Present. Amniotic Fluid Volume: 2 /2 Movements: 2 /2 Tone: 2 /2 Breathin /2 Total: 8 /8 US/OB Biophysical Prof W/O NST IMPRESSION: BIOPHYSICAL PROFILE SCORE 8 /8. Reading Location: [id number]
--- NOTE | 2025-09-19 13:09 | OB.TRI.PN ---
Progress Notes Date of Service: 09/19/25 Progress Note: 38 weeks non reactive nst now reactive 06/29 bpp dc home fu for IOL wednesday
== END 2025-09-19 13:05 | disposition home or self-care (01) ==
LOC: WPOUT 11:10 → WP 11:12
PROVIDERS: Referring Provider Obstetrics & Gynecology; Visit Provider Obstetrics & Gynecology
DX: Z36.82 Encounter for antenatal screening for nuchal translucency (principal); Z3A.38 38 weeks gestation of pregnancy
CPT/HCPCS: 59025; 59050; 76819; 99221; G0378